=== PATIENT | female | born 1945 | race Caucasian/White ===

== ENCOUNTER 2023-03-15 20:53 | Inpatient (IN) | payer MEDICARE ==
--- NOTE | 2023-03-15 21:22 | ED ---
SOB HPI - General Source: patient, RN notes reviewed <Bebe Gaona - Last Filed: 03/15/23 21:21> <Temi Wallace - Last Filed: 03/16/23 04:52> - General Stated Complaint: KEN Time Seen by Provider: 03/15/23 21:21 - History of Present Illness Initial Comments: Patient is a 77-year-old female presented ER with chief complaint shortness of breath. Patient has a past medical history significant for COPD and multiple heart problems. Patient states she started having shortness of breath earlier today. Patient states her nebulizer was not working which brought her into the ER. Denies chest pain. Patient denies any fevers, chills, night sweats. (Bebe Gaona) Geetha is a 77-year-old female who presents the ER with report that she has had shortness of breath throughout the day today. Patient reports she has a history of COPD she also has a pacemaker in place but denies any history of CHF. She states that today she suddenly started feeling like she could not catch her breath her nebulizer was not helping. She wasn't having any chest pain. She's had no recent illness. (Temi Wallace) - Related Data Allergies Allergy/AdvReac Type Severity Reaction Status Date / Time cephalexin [From Keflex] Allergy Rash/Hives Verified 03/15/23 22:17 Sulfa (Sulfonamide Allergy Rash/Hives Verified 03/15/23 22:17 Antibiotics) Review of Systems ROS Other: All systems not noted in ROS Statement are negative. <Bebe Gaona - Last Filed: 03/15/23 21:21> ROS Other: All systems not noted in ROS Statement are negative. <Temi Wallace - Last Filed: 03/16/23 04:52> ROS Statement: Those systems with pertinent positive or pertinent negative responses have been documented in the HPI. General Exam <Bebe Gaona - Last Filed: 03/15/23 21:21> General appearance: alert Head exam: Present: atraumatic Eye exam: Present: normal appearance ENT exam: Present: normal exam Respiratory exam: Present: normal lung sounds bilaterally Cardiovascular Exam: Present: regular rate GI/Abdominal exam: Present: soft. Absent: distended Extremities exam: Present: pedal edema Neurological exam: Present: alert, oriented X3 Psychiatric exam: Present: normal affect, normal mood Skin exam: Present: warm, dry <Temi Wallace - Last Filed: 03/16/23 04:52> - General Exam Comments Initial Comments: Visual Physical Exam Vital signs reviewed General: Well-appearing, nontoxic, no acute distress. Head: Normocephalic, atraumatic Eyes: PERRLA, EOMI ENT: Airway patent Chest: Nonlabored breathing Skin: No visual rash, normal skin tone Neuro: Alert and oriented 3 Musculoskeletal: No gross abnormalities (Bebe Gaona) Course Vital Signs 03/15/23 03/16/23 03/16/23 22:15 00:18 01:00 Temperature 98.5 F Pulse Rate 81 Respiratory 20 18 21 Rate Blood Pressure 139/82 129/78 146/97 O2 Sat by Pulse 99 98 98 Oximetry 03/16/23 02:00 Temperature Pulse Rate Respiratory 20 Rate Blood Pressure 142/94 O2 Sat by Pulse 98 Oximetry Medical Decision Making <Bebe Gaona - Last Filed: 03/15/23 21:21> - Lab Data Result diagrams: 03/15/23 22:18 03/15/23 22:18 - EKG Data -: EKG Interpreted by Me <Temi Wallace - Last Filed: 03/16/23 04:52> - Medical Decision Making I performed the quick note portion of the exam. Electronically signed by Bebe Gaona PA-C (Bebe Gaona) Was pt. sent in by a medical professional or institution ([facility], [facility], urgent care, hospital, or prison...) When possible be specific @ -No Did you speak to anyone other than the patient for history (EMS, parent, family, police, friend...)? What history was obtained from this source @ -No Did you review nursing and triage notes (agree or disagree)? Why? @ -I reviewed and agree with nursing and triage notes Were old charts reviewed (outside hosp., previous admission, EMS record, old EKG, old radiological studies, urgent care reports/EKG's, prison records)? Report findings @ -No old charts were reviewed Differential Diagnosis (chest pain, altered mental status, abdominal pain women, abdominal pain men, vaginal bleeding, weakness, fever, dyspnea, syncope, headache, dizziness, GI bleed, back pain, seizure, CVA, palpatations, mental health)? @ -Differential Dyspnea: Coronary syndrome, arrhythmia, tamponade, asthma, COPD, pulmonary embolism, pneumonia, pneumothorax, pulmonary effusion, anaphylaxis, diabetic ketoacidosis, flailed chest, pulmonary contusion, diaphragmatic rupture, anemia, neuromuscular, this is not meant to be an all-inclusive list. EKG interpreted by me (3pts min.). @ -As above X-rays interpreted by me (1pt min.). @ -No pneumothorax no focal consolidations CT interpreted by me (1pt min.). @ -None done U/S interpreted by me (1pt. min.). @ -None done What testing was considered but not performed or refused? (CT, X-rays, U/S, labs)? Why? @ -Echocardiogram, can be ordered upon admission What meds were considered but not given or refused? Why? @ -None Did you discuss the management of the patient with other professionals (professionals i.e. , PA, [facility] [facility], lab, RT, psych nurse, neonatal social worker, ice platform supervisor, teacher, morale officer, returned case inspector)? Give summary @ -No Was smoking cessation discussed for >3mins.? @ -No Was critical care preformed (if so, how long)? @ -No Were there social determinants of health that impacted care today? How? (Homelessness, low income, unemployed, alcoholism, drug addiction, transportation, low edu. Level, literacy, decrease access to med. care, [facility], rehab)? @ -No Was there de-escalation of care discussed even if they declined (Discuss DNR or withdrawal of care, Hospice)? DNR status @ -No What co-morbidities impacted this encounter? (DM, HTN, Smoking, COPD, CAD, Cancer, CVA, ARF, Chemo, Hep., AIDS, mental health diagnosis, sleep apnea, morbid obesity)? @ -COPD Was patient admitted / discharged? Hospital course, mention meds given and r oute, prescriptions, significant lab abnormalities, going to OR and other pertinent info. @ -Admitted Patient's workup was initiated in the waiting room due to very prolonged wait times. Patient had labs and x-ray obtained, her troponin was noted to be elevated. Patient did deny any chest pain however given her advanced age and comorbidities shortness of breath could be atypical presentation for cardiac ischemia. Repeat troponin as well as heparin were ordered. Lasix was ordered as well. The troponin is trending down She will be admitted for new CHF, echo was ordered upon admission. Cardiology was consult at. Undiagnosed new problem with uncertain prognosis? @ -Yes Drug Therapy requiring intensive monitoring for toxicity (Heparin, Nitro, Insulin, Cardizem)? @ -Yes, Heparin Were any procedures done? @ -No Diagnosis/symptom? @ -CHF Acute, or Chronic, or Acute on Chronic? @ -Acute Uncomplicated (without systemic symptoms) or Complicated (systemic symptoms)? @ -default Side effects of treatment? @ -No Exacerbation, Progression, or Severe Exacerbation? @ -No Poses a threat to life or bodily function? How? (Chest pain, USA, ME, pneumonia, PE, COPD, DKA, ARF, appy, cholecystitis, CVA, Diverticulitis, Homicidal, Suicidal, threat to staff... and all critical care pts) @ -Yes (Temi Wallace) - Lab Data Lab Results 03/15/23 03/15/23 03/15/23 Range/Units 22:18 22:18 22:18 WBC 8.1 (3.8-10.6) k/uL RBC 3.63 L (3.80-5.40) m/uL Hgb 12.0 (11.4-16.0) gm/dL Hct 35.6 (34.0-46.0) % MCV 98.0 (80.0-100.0) fL MCH 33.2 (25.0-35.0) pg MCHC 33.8 (31.0-37.0) g/dL RDW 12.8 (11.5-15.5) % Plt Count 198 (150-450) k/uL MPV 8.2 PT (10.0-12.5) sec INR (<1.2) APTT (22.0-30.0) sec Sodium 136 L (137-145) mmol/L Potassium 4.3 (3.5-5.1) mmol/L Chloride 100 (98-107) mmol/L Carbon Dioxide 26 (22-30) mmol/L Anion Gap 10 mmol/L BUN 9 (7-17) mg/dL Creatinine 0.74 (0.52-1.04) mg/dL Est GFR (CKD-EPI)AfAm >90 (>60 ml/min/1.73 sqM) Est GFR (CKD-EPI)NonAf 80 (>60 ml/min/1.73 sqM) Glucose 154 H (74-99) mg/dL Calcium 9.5 (8.4-10.2) mg/dL Total Bilirubin 0.7 (0.2-1.3) mg/dL AST 21 (14-36) U/L ALT 17 (4-34) U/L Alkaline Phosphatase 107 (38-126) U/L Troponin I 0.087 H* (0.000-0.034) ng/mL NT-Pro-B Natriuret Pep 4690 pg/mL Total Protein 6.7 (6.3-8.2) g/dL Albumin 3.8 (3.5-5.0) g/dL Influenza Type A (PCR) (Not Detectd) Influenza Type B (PCR) (Not Detectd) RSV (PCR) (Not Detectd) SARS-CoV-2 (PCR) (Not Detectd) 03/15/23 03/16/23 Range/Units 22:18 00:15 WBC (3.8-10.6) k/uL RBC (3.80-5.40) m/uL Hgb (11.4-16.0) gm/dL Hct (34.0-46.0) % MCV (80.0-100.0) fL MCH (25.0-35.0) pg MCHC (31.0-37.0) g/dL RDW (11.5-15.5) % Plt Count (150-450) k/uL MPV PT 10.7 (10.0-12.5) sec INR 1.0 (<1.2) APTT 23.5 (22.0-30.0) sec Sodium (137-145) mmol/L Potassium (3.5-5.1) mmol/L Chloride (98-107) mmol/L Carbon Dioxide (22-30) mmol/L Anion Gap mmol/L BUN (7-17) mg/dL Creatinine (0.52-1.04) mg/dL Est GFR (CKD-EPI)AfAm (>60 ml/min/1.73 sqM) Est GFR (CKD-EPI)NonAf (>60 ml/min/1.73 sqM) Glucose (74-99) mg/dL Calcium (8.4-10.2) mg/dL Total Bilirubin (0.2-1.3) mg/dL AST (14-36) U/L ALT (4-34) U/L Alkaline Phosphatase (38-126) U/L Troponin I (0.000-0.034) ng/mL NT-Pro-B Natriuret Pep pg/mL Total Protein (6.3-8.2) g/dL Albumin (3.5-5.0) g/dL Influenza Type A (PCR) Not Detected (Not Detectd) Influenza Type B (PCR) Not Detected (Not Detectd) RSV (PCR) Not Detected (Not Detectd) SARS-CoV-2 (PCR) Not Detected (Not Detectd) - EKG Data EKG Comments: EKG interpreted by me, EKG obtained at 2228, rate is 81 rhythm is sinus with a bifascicular block left ventricular hypertrophy with noted Q waves concerning for previous ischemia and no acute ST elevations or depressions no evidence of acute infarction. (Temi Wallace) Disposition <Bebe Gaona - Last Filed: 03/15/23 21:21> Is patient prescribed a controlled substance at d/c from ED?: No <Temi Wallace - Last Filed: 03/16/23 04:52> Clinical Impression: Congestive heart failure, COPD (chronic obstructive pulmonary disease), NSTEMI (non-ST elevated myocardial infarction) Disposition: ADMITTED IP TO THIS HOSP Condition: Serious
[2023-03-15 22:56] LABS: ALT 17 U/L (4-34); AST 21 U/L (14-36); African American GFR (CKD) >90 (>60 ml/min/1.73 sqM); Albumin 3.8 g/dL (3.5-5.0); Alkaline Phosphatase 107 U/L (38-126); Anion Gap 10 mmol/L; Blood Urea Nitrogen 9 mg/dL (7-17); Calcium 9.5 mg/dL (8.4-10.2); Carbon Dioxide 26 mmol/L (22-30); Chloride 100 mmol/L (98-107); Glucose 154 mg/dL (74-99); Non-African American GFR(CKD) 80 (>60 ml/min/1.73 sqM); Potassium 4.3 mmol/L (3.5-5.1); Sodium 136 mmol/L (137-145); Total Bilirubin 0.7 mg/dL (0.2-1.3); Total Protein 6.7 g/dL (6.3-8.2)
[2023-03-15 23:04] LABS: HCT 35.6 % (34.0-46.0); MCH 33.2 pg (25.0-35.0); MCHC 33.8 g/dL (31.0-37.0); Mean Platelet Volume 8.2; Platelet Count 198 k/uL (150-450); RBC 3.63 m/uL (3.80-5.40); RDW 12.8 % (11.5-15.5); WBC 8.1 k/uL (3.8-10.6)
[2023-03-15 23:05] LABS: NT-Pro-B-Type Natriuretic Pept 4690 pg/mL
[2023-03-16 00:52] LABS: Partial Thromboplastin Time 23.5 sec (22.0-30.0); Prothrombin Time 10.7 sec (10.0-12.5)
[2023-03-16] MEDS ORDERED: HEPARIN SODIUM 1,000 UN/ML (10ML VL) IV ONE (01:20)
[2023-03-16] MEDS ORDERED: HEPARIN SODIUM 1,000 UN/ML (10ML VL) IV PRN (01:20)
[2023-03-16] MEDS ORDERED: FUROSEMIDE 10 MG/ML 4 ML VIAL IV STA (01:21)
[2023-03-16] MEDS ORDERED: NITROGLYCERIN SL TABS 0.4 MG TAB SUBLINGUAL PRN ×2 (01:25→11:37)
--- NOTE | 2023-03-16 01:34 | XR ---
EXAMINATION TYPE: XR chest 2V DATE OF EXAM: 03/15/2023 9:32 PM CLINICAL INDICATION:Female, 77 years old with history of dyspnea; PHH COMPARISON: None TECHNIQUE: XR chest 2V. Frontal PA and lateral views of the chest. FINDINGS: Lines/Tubes: No indwelling lines are seen. Heart/mediastinum: Heart appears mildly enlarged. Partially calcified aorta. Left chest dual-lead pac emaker with tips over the RA and RV. TAVR present. Pulmonary vascularity: Pulmonary vascular congestion. Increased interstitial markings can be seen wit h edema, pneumonitis, and/or chronic changes. Lungs/Pleura: There is no evidence of pleural effusion, focal consolidation, or pneumothorax. Musculoskeletal: No acute osseous abnormality demonstrated in the limits of the exam. There is fixat ion hardware in the lower cervical spine. Mild degenerative changes of the shoulders and spine. Other findings: None. IMPRESSION: * Mild cardiomegaly with postoperative changes. * Pulmonary vascular congestion. Increased interstitial markings can be seen with edema, pneumonitis , and/or chronic changes.
[2023-03-16] MEDS: HEPARIN SOD,PORK IN 0.45% NACL 25,000 UNIT in 0.45% NACL 1 250ML.BAG IV SCH (02:05)
[2023-03-16] MEDS ORDERED: ALBUTEROL HFA INHALER INHALATION PRN (08:26)
[2023-03-16] MEDS ORDERED: IPRATROPIUM-ALBUTEROL 3 ML NEB INHALATION PRN (08:26)
[2023-03-16] MEDS ORDERED: CYCLOBENZAPRINE 5 MG TAB PO PRN (08:26)
--- NOTE | 2023-03-16 09:18 | P.HPIM ---
History of Present Illness This is a pleasant 77 years old female with multiple medical problems as below. Presents because of breathing difficulty of one-day duration. No specific worsening cough or phlegm, she has occasional chronic cough with clear phlegm. She was developing chest pain, since yesterday about 8, central nonradiating felt like sharp and constant with no precipitation by deep breath or coughing. She denies any change in her urine habit or bowel habits, she has some nausea but no headache dizziness weakness or numbness Denies smoking on she denies drinking alcohol however she smokes marijuana. Her PCP is informed that given pills but she plan to switch to the area. Patient says that she has history of pulmonary embolism twice in 2012 and she is taking liquids at home Patient Vitas looks stable. CBC, INR, BMP and LFTs were unremarkable. And is elevated at 0.08 and 0.07. His BNP elevated 4690. Influenza A and type B, RSV, SARS (coronavirus) are and detected EKG showing normal sinus rhythm and 81, LVH, no ST-T changes and QTC 446. Cardiomegaly with pulmonary vascular congestion suspicious for CHF. Started on heparin drip, aspirin 325 mg and Lasix 40 mg twice daily. Review of Systems Review of systems CONSTITUTIONAL: No fever, no malaise, no fatigue. HEENT: No recent visual problems or hearing problems. Denied any sore throat. CARDIOVASCULAR: No orthopnea, PND, no palpitations, no syncope. PULMONARY: No shortness of breath, no cough, no hemoptysis. GASTROINTESTINAL: No diarrhea, no nausea, no vomiting, no abdominal pain. Normoactive bowel sounds. NEUROLOGICAL: No headaches, no weakness, no numbness. HEMATOLOGICAL: Denies any bleeding or petechiae. GENITOURINARY: Denies any burning micturition, frequency, or urgency. MUSCULOSKELETAL/RHEUMATOLOGICAL: Denies any joint pain, swelling, or any muscle pain. ENDOCRINE: Denies any polyuria or polydipsia. Past Medical History Past Medical History: COPD, Hyperlipidemia, Hypertension, Thyroid Disorder Past Surgical History: Pacemaker Additional Past Surgical History / Comment(s): Heart valve Past Psychological History: No Psychological Hx Reported Smoking Status: Never smoker Past Alcohol Use History: Occasional Past Drug Use History: None Reported Medications and Allergies Home Medications Medication Instructions Recorded Confirmed Type Albuterol Inhaler [Ventolin Hfa 1 puff INHALATION RT-Q4H PRN 12/28/23 12/28/23 History Inhaler] Apixaban [Eliquis] 5 mg PO BID 03/16/23 03/16/23 History Atorvastatin [Lipitor] 20 mg PO HS 03/16/23 03/16/23 History Calcium Carbonate [Calcium] 600 mg PO DAILY 03/16/23 03/16/23 History Cholecalciferol [Vitamin D3 (25 25 mcg PO DAILY 03/16/23 03/16/23 History Mcg = 1000 Iu)] Cyclobenzaprine [Flexeril] 5 mg PO QID PRN 03/16/23 03/16/23 History Famotidine [Pepcid] 20 mg PO HS 03/16/23 03/16/23 History Ginkgo Biloba [place] Extract [Ginkgo] 60 mg PO BID 03/16/23 03/16/23 History Ipratropium/Albuter 20-100Mcg 1 puff INHALATION RT-Q6H PRN 03/16/23 03/16/23 History [Combivent Respimat 20-100Mcg Inhaler] Levothyroxine Sodium [Synthroid] 68.5 mcg PO BENITEZ 03/16/23 03/16/23 History Levothyroxine Sodium [Synthroid] 137 mcg PO MOTUWETHFRSA 03/16/23 03/16/23 History Losartan Potassium [Cozaar] 100 mg PO DAILY 03/16/23 03/16/23 History Metoprolol Succinate (ER) [Toprol 100 mg PO DAILY 03/16/23 03/16/23 History Xl] Montelukast [Singulair] 10 mg PO HS 03/16/23 03/16/23 History Multivit-Min/FA/Lycopen/Lutein 1 tab PO HS 03/16/23 03/16/23 History [Centrum Silver Tablet] Omeprazole 20 mg PO AC-BRKFST 03/16/23 03/16/23 History amLODIPine [Norvasc] 2.5 mg PO HS 03/16/23 03/16/23 History buPROPion SR [Wellbutrin SR] 150 mg PO BID 03/16/23 03/16/23 History Allergies Allergy/AdvReac Type Severity Reaction Status Date / Time cephalexin [From Keflex] Allergy Rash/Hives Verified 03/16/23 07:32 Sulfa (Sulfonamide Allergy Rash/Hives Verified 03/16/23 07:32 Antibiotics) Physical Exam Vitals: Vital Signs Temp Pulse Resp BP Pulse Ox 03/16/23 08:14 78 20 132/70 95 03/16/23 02:00 20 142/94 98 03/16/23 01:00 21 146/97 98 03/16/23 00:30 28 H 03/16/23 00:18 18 129/78 98 03/15/23 22:15 98.5 F 81 20 139/82 99 Intake and Output 03/15/23 03/16/23 03/16/23 22:59 06:59 14:59 Other: Weight 99.79 kg GENERAL: The patient is alert and oriented x3, not in any acute distress. Well developed, well nourished. HEENT: Pupils are round and equally reacting to light. EOMI. No scleral icterus. No conjunctival pallor. Normocephalic, atraumatic. No pharyngeal erythema. No thyromegaly. CARDIOVASCULAR: S1 and S2 present. No murmurs, rubs, or gallops. PULMONARY: Chest is clear to auscultation, no wheezing , no crackles. ABDOMEN: Soft, nontender, nondistended, normoactive bowel sounds. No palpable organomegaly. MUSCULOSKELETAL: No joint swelling or deformity. EXTREMITIES: No cyanosis, clubbing, or pedal edema. NEUROLOGICAL: Gross neurological examination did not reveal any focal deficits. SKIN: No rashes. no petechiae. Results CBC & Chem 7: 03/15/23 22:18 03/15/23 22:18 Labs: Abnormal Lab Results - Last 24 Hours (Table) 03/15/23 03/15/23 03/15/23 Range/Units 22:18 22:18 22:18 RBC 3.63 L (3.80-5.40) m/uL APTT (22.0-30.0) sec Sodium 136 L (137-145) mmol/L Glucose 154 H (74-99) mg/dL Troponin I 0.087 H* (0.000-0.034) ng/mL 03/16/23 03/16/23 Range/Units 01:32 07:03 RBC (3.80-5.40) m/uL APTT 78.4 H (22.0-30.0) sec Sodium (137-145) mmol/L Glucose (74-99) mg/dL Troponin I 0.075 H* (0.000-0.034) ng/mL Assessment and Plan Assessment: Fever of unknown origin, pneumonia suspected Generalized weakness secondary to the above Sepsis with hypotension secondary to above, with fever and tachypnea present on admission Alcohol use disorder and dependence Mildly elevated troponin Obesity with BMI 39 Plan: Continue with heparin drip Continue with aspirin Continue with IV Lasix Hold on Eliquis cardiology consult Labs and medication were reviewed.. Continue same treatment. Continue with symptomatic treatment. Resume home medication. Monitor labs and vitals. DVT and GI prophylaxis. Further recommendations as per clinical course of the patient DVT prophylaxis: Eliquis GI Prophylaxis: Pepcid Prognosis is guarded
--- NOTE | 2023-03-16 10:37 | CONS ---
CONSULTATION CHIEF COMPLAINT: Shortness of breath. HISTORY OF PRESENT ILLNESS: Geetha is a 77-year-old lady with history of aortic stenosis, status post transaortic aortic valve replacement at [facility] 2 years ago, history of bradycardia status post permanent pacemaker, and COPD, who presented to the hospital complaining of shortness of breath that started earlier yesterday. She regularly takes nebulizer that was not working and helping her with her symptoms and she came to the ER. She denies fever or chills. There was mild troponin elevation, due to which a diagnosis of non-ST- segment elevation TX was made and the patient was started on heparin. At the time of my evaluation this morning, she appears comfortable at rest and denies any chest pain. Her shortness of breath has improved. The chest x-ray shows pulmonary congestion. The patient had been treated with IV Lasix with symptom improvement. Her clinical presentation is consistent with a diagnosis of acute onset congestive heart failure and [id number] elevation TX. Given the underlying prosthetic valve, I will obtain blood cultures on her today. She tested negative for coronavirus and RSV and influenza. I advised the patient to undergo a cardiac catheterization tomorrow to rule out significant obstructive CAD. While I do not have her previous records, she did not have bypass surgery and never had coronary stenting. PAST MEDICAL HISTORY: Significant for hypothyroidism, hypertension, pulmonary embolism, COPD, history of aortic valve replacement, and history of permanent pacemaker. MEDICATIONS: Medications at home include: 1. Singulair. 2. Toprol-XL. 3. Cozaar 100 mg daily. 4. Synthroid. 5. Pepcid. 6. Flexeril. 7. Eliquis 5 mg b.i.d. 8. Wellbutrin. 9. Combivent. 10.Norvasc. 11.Lipitor. 12.Albuterol. ALLERGIES: The patient is allergic to Keflex and sulfa. FAMILY HISTORY: Negative for premature coronary artery disease. SOCIAL HISTORY: Negative for current smoking issues or drug abuse. REVIEW OF SYSTEMS: HEENT: Unremarkable. CARDIAC: As described above. RESPIRATORY: As described above. GI: Negative. GENITOURINARY: Negative. ALLERGY/IMMUNOLOGY: Negative. SKIN: Negative. MUSCULOSKELETAL: Negative for arthritis. PSYCHOSOCIAL: Negative. DERM: Negative. CONSTITUTIONAL: As described above. HEMATOLOGICAL: Negative. ONCOLOGICAL: Negative. Rest of the system review is not relevant. PHYSICAL EXAMINATION: VITAL SIGNS: The patient is afebrile, heart rate is 78 beats per minute, blood pressure 130/72, respiratory rate is 18, and O2 saturation is 95% on 2 L. NECK: There is no jugular venous distention. CHEST: Reveals good air entry bilaterally. I do not hear any crackles or rhonchi. HEART: Reveals first and second heart sounds, an ejection systolic murmur in the aortic area. ABDOMEN: Soft. EXTREMITIES: Did not reveal any edema. Peripheral pulses are felt. IMAGING: EKG shows sinus rhythm with right bundle branch block and left axis deviation. LABORATORY DATA: Labs show potassium of 4.3. Creatinine is 0.7. Troponin is elevated at 0.08, 0.07, and 0.09. BNP is elevated at 4690. Hemoglobin is 12. ASSESSMENT: 1. Acute qqt-FQ-[id number] elevation myocardial infarction. 2. Acute onset congestive heart failure of unclear etiology. 3. History of aortic valve replacement. 4. Chronic obstructive pulmonary disease. 5. Hypertension. PLAN: I will continue the patient on IV heparin. Schedule her for a cardiac cath tomorrow. Obtain a 2D echo and send out blood cultures on her. MMODL / IJN: [id number] /
[2023-03-16] MEDS: LEVOTHYROXINE 137 MCG TAB PO SCH (11:05)
[2023-03-16] MEDS: CHOLECALCIFEROL 25 MCG (1000 IU) TABLET PO SCH (11:06)
[2023-03-16] MEDS: buPROPion SR 150 MG TABLET.ER PO SCH ×2 (11:07→22:32)
[2023-03-16] MEDS: METOPROLOL SUCCINATE (ER) 100 MG TAB.ER.24H PO SCH (11:07)
[2023-03-16] MEDS: LOSARTAN 50 MG TAB PO SCH (11:07)
[2023-03-16] MEDS: FUROSEMIDE 10 MG/ML 4 ML VIAL IV SCH ×2 (11:08→20:35)
[2023-03-16] MEDS ORDERED: ALPRAZolam 0.25 MG TAB PO PRN (11:37)
--- NOTE | 2023-03-16 13:41 | CA ---
Transthoracic Echo Report Name: Geetha Najera Age: 77 Gender: F : 1945 Exam Date: 03/16/2023 10:40 Exam Location: [facility] Ht (in): 63 Wt (lb): 220 Ordering Physician: Temi Wallace DO Attending/Referring Phys: [id number] Clinical Rehabilitation Liaison Arthur Sharpe Procedure CPT: Indications: chf Cardiac Hx: Technical Quality: Fair Contrast 1: Total Dose (mL): Contrast 2: Total Dose (mL): MEASUREMENTS (Male / Female) Normal Values 2D ECHO LV Diastolic Diameter PLAX 4.5 cm 4.2 - 5.9 / 3.9 - 5.3 cm LV Systolic Diameter PLAX 3.1 cm IVS Diastolic Thickness 1.1 cm 0.6 - 1.0 / 0.6 - 0.9 cm LVPW Diastolic Thickness 1.2 cm 0.6 - 1.0 / 0.6 - 0.9 cm LV Relative Wall Thickness 0.5 RV Internal Dim ED PLAX 2.0 cm LVOT Diameter 1.8 cm Aortic Root Diameter 1.9 cm LA Systolic Diameter LX 3.3 cm 3.0 - 4.0 / 2.7 - 3.8 cm LV Diastolic Volume MOD BP 56.7 cm??? 67 - 155 / 56 - 104 cm??? LV Systolic Volume MOD BP 43.9 cm??? 22 - 58 / 19 - 49 cm??? LV Ejection Fraction MOD BP 22.6 % >= 55 % LV Cardiac Index MOD BP 452.8 cm???/min???m??? LV Diastolic Volume MOD 4C 49.5 cm??? LV Systolic Volume MOD 4C 39.8 cm??? LV Ejection Fraction MOD 4C 19.5 % LV Cardiac Index MOD 4C 341.0 cm???/min???m??? LV Diastolic Length 4C 6.5 cm LV Systolic Length 4C 5.8 cm LV Diastolic Volume MOD 2C 65.3 cm??? LV Systolic Volume MOD 2C 47.0 cm??? LV Ejection Fraction MOD 2C 28.1 % LV Cardiac Index MOD 2C 647.6 cm???/min???m??? LV Diastolic Length 2C 6.5 cm LV Systolic Length 2C 6.0 cm LA Volume 41.0 cm??? 18 - 58 / 22 - 52 cm??? LA Volume Index 19.0 cm???/m??? 16 - 28 cm???/m??? DOPPLER AV Peak Velocity 154.2 cm/s AV Peak Gradient 9.5 mmHg LVOT Peak Velocity 112.8 cm/s LVOT Peak Gradient 5.1 mmHg LVOT Velocity Time Integral 19.8 cm LVOT Stroke Volume 50.6 cm??? LVOT Stroke Volume Index 25.1 ml/m??? LVOT Cardiac Index 1782.5 cm???/min???m??? AV Area Cont Eq pk 1.9 cm??? MV Peak Velocity 141.3 cm/s MV Peak Gradient 8.0 mmHg MV Mean Velocity 68.1 cm/s MV Mean Gradient 2.3 mmHg MV Velocity Time Integral 31.6 cm MR Peak Velocity 552.4 cm/s MR Peak Gradient 122.0 mmHg Mitral E Point Velocity 100.9 cm/s Mitral A Point Velocity 92.8 cm/s Mitral E to A Ratio 1.1 MV Deceleration Time 137.0 ms TR Peak Velocity 191.2 cm/s TR Peak Gradient 14.6 mmHg Right Ventricular Systolic Press 19.9 mmHg PV Peak Velocity 141.0 cm/s PV Peak Gradient 8.0 mmHg FINDINGS Left Ventricle Normal LV size and wall thickness. Left ventricular ejection fraction is estimated at 40 %. Right Ventricle Normal right ventricular size. Right Atrium Normal right atrial size. Left Atrium Normal left atrial size. Mitral Valve Mild to moderate Mitral annulus calcification. Moderate MR. Aortic Valve HX prior TAVR. No aortic valve stenosis or regurgitation. Tricuspid Valve Tricuspid valve not well visualized. Mild TR. Pulmonic Valve Pulmonic valve not well visualized. Mild to moderate PI. Pericardium Not well visualized. Aorta Normal size aortic root. CONCLUSIONS Left ventricular ejection fraction 40% Moderate mitral regurgitation Bioprosthetic aortic valve in place with no significant aortic stenosis or regurgitation No pericardial effusion Previewed by: Dr. Graham Mckeon DO (Electronically Signed) Final Date: 16 March 2023 13:40
[2023-03-16] MEDS: amLODIPine 2.5 MG TAB PO SCH (20:35)
[2023-03-16] MEDS: ATORVASTATIN 20 MG TAB PO SCH (20:35)
[2023-03-16] MEDS: MONTELUKAST 10 MG TAB PO SCH (20:35)
[2023-03-16] MEDS: FAMOTIDINE 20 MG TAB PO SCH (22:32)
[2023-03-17] MEDS: SODIUM CHLORIDE 0.9% 1,000 ML in EMPTY BAG 1 BAG IV SCH ×3 (01:23→20:42)
[2023-03-17] MEDS: HEPARIN SOD,PORK IN 0.45% NACL 25,000 UNIT in 0.45% NACL 1 250ML.BAG IV SCH (01:24)
[2023-03-17] MEDS ORDERED: ATORVASTATIN 80 MG TAB PO ONE (05:00)
[2023-03-17] MEDS ORDERED: ASPIRIN 325 MG TAB PO ONE (05:00)
[2023-03-17] MEDS ORDERED: HEPARIN SODIUM,PORCINE 10,000 UNIT in SODIUM CHLORIDE 0.9% 1,000 ML IRRIGATION PRN (07:00)
[2023-03-17] MEDS ORDERED: HEPARIN SODIUM,PORCINE (1 ML) 2,500 UNIT in SODIUM CHLORIDE 0.9% 250 ML IRRIGATION PRN (07:00)
[2023-03-17] MEDS: CHOLECALCIFEROL 25 MCG (1000 IU) TABLET PO SCH (07:09)
[2023-03-17] MEDS: LOSARTAN 50 MG TAB PO SCH (07:09)
[2023-03-17] MEDS: METOPROLOL SUCCINATE (ER) 100 MG TAB.ER.24H PO SCH (07:10)
[2023-03-17] MEDS: LEVOTHYROXINE 137 MCG TAB PO SCH (07:10)
[2023-03-17] MEDS: ASPIRIN 325 MG TAB PO SCH (07:12)
[2023-03-17 07:20] LABS: Basophils % (A) 1 %; Eosinophils # (A) 0.2 k/uL (0-0.7); Eosinophils % (A) 3 %; HCT 35.4 % (34.0-46.0); HGB 11.8 gm/dL (11.4-16.0); Lymphocytes # (A) 1.8 k/uL (1.0-4.8); Lymphocytes % (A) 31 %; MCHC 33.5 g/dL (31.0-37.0); MCV 98.7 fL (80.0-100.0); Mean Platelet Volume 8.2; Monocytes # (A) 0.4 k/uL (0-1.0); Monocytes % (A) 7 %; Neutrophils # (A) 3.1 k/uL (1.3-7.7); Neutrophils % (A) 55 %; Platelet Count 213 k/uL (150-450); RBC 3.58 m/uL (3.80-5.40); RDW 12.8 % (11.5-15.5); WBC 5.7 k/uL (3.8-10.6)
[2023-03-17 07:32] LABS: Partial Thromboplastin Time 30.2 sec (22.0-30.0); Prothrombin Time 11.2 sec (10.0-12.5)
[2023-03-17 07:48] LABS: Anion Gap 11 mmol/L; Carbon Dioxide 30 mmol/L (22-30); Chloride 95 mmol/L (98-107); Potassium 3.4 mmol/L (3.5-5.1); Sodium 136 mmol/L (137-145)
[2023-03-17] MEDS: ALPRAZolam 0.5 MG TAB PO PRN (11:15)
[2023-03-17] MEDS ORDERED: fentaNYL (PF) 50 MCG/ML 2 ML AMP ONE ×2 (11:51→14:32)
[2023-03-17] MEDS ORDERED: IV FLUID CONTINUATION 1,000 ML IV ONE ×2 (11:56→14:57)
[2023-03-17] MEDS ORDERED: LIDOCAINE 1% INJ 10MG/ML (30 ML VIAL-PF) SQ ONE (11:56)
[2023-03-17] MEDS ORDERED: MIDAZOLAM 2 MG/2 ML VIAL IVP ONE ×3 (12:00→15:02)
[2023-03-17] MEDS ORDERED: fentaNYL (PF) 50 MCG/1 ML VIAL IVP ONE ×2 (12:01)
[2023-03-17] MEDS ORDERED: IOPAMIDOL-300 100ML BTL INJ ONE (12:42)
--- NOTE | 2023-03-17 13:29 | CC ---
CARDIAC CATHETERIZATION REPORT INDICATIONS: This is a 77-year-old lady with history of aortic stenosis status post aortic valve replacement with an Evolut device, who presented to hospital with chest pain and had mild [id number] elevation TN. I advised her to undergo cardiac catheterization to evaluate her coronary anatomy. The patient has been explained of risks, benefits, and alternatives understood and accepted. PROCEDURE NOTE: After obtaining informed consent, left heart catheterization and coronary angiogram were performed via the right femoral artery using standard Ana catheters. I initially attempted right radial artery catheterization. However, after obtaining right radial artery access and placing a 6-[place] sheath within the right radial artery, I could not advance guidewire into the brachial artery, hence I stopped the procedure through radial and obtained a femoral access and proceeded to perform the cath. The right coronary artery was engaged by Dr. Mckeon, the available bilingual speech language pathologist. The patient received moderate conscious sedation. Total sedation time was 40 minutes. FINDINGS: 1. Hemodynamics: Central aortic pressure is 120/80 mm. 2. Angiographic Data: a.Right Coronary Artery: Right coronary artery is a large dominant vessel that shows a focal 80% to 90% stenosis. The left coronary artery was engaged sub- selectively but LAD showed mild nonobstructive disease and nondominant circumflex coronary artery also shows a nonobstructive disease. CONCLUSIONS: Focal 80% to 90% stenosis involving mid RCA with an area of plaque rupture. PLAN: The patient will undergo angioplasty with stent placement of the same probably later today as Dr. Mckeon is tied up in a pacemaker at the moment, if it cannot be done today, it will be done tomorrow. The patient is on Eliquis, which will be resumed after the angioplasty is done. MMODL / IJN: [id number] /
[2023-03-17] MEDS ORDERED: HEPARIN SODIUM 1,000 UN/ML (10ML VL) ONE (14:31)
[2023-03-17] MEDS ORDERED: LIDOCAINE 1% INJ 10MG/ML (20 ML MDV) ONE (14:31)
[2023-03-17] MEDS ORDERED: VERAPAMIL 2.5 MG/ML 2 ML AMP ONE (14:31)
[2023-03-17] MEDS: HEPARIN SODIUM 1,000 UN/ML (10ML VL) IV ONE ×4 (15:00→16:25)
[2023-03-17] MEDS ORDERED: CLOPIDOGREL 75 MG TAB ONE (15:01)
[2023-03-17] MEDS ORDERED: fentaNYL (PF) 50 MCG/ML 2 ML AMP IVP ONE (15:02)
[2023-03-17] MEDS ORDERED: CLOPIDOGREL 75 MG TAB PO ONE (15:05)
[2023-03-17 15:22] LABS: Chol/HDL Ratio 4.29 Ratio; LDL Cholesterol,Calculated 125.1 mg/dL (0.0-131.0)
[2023-03-17] MEDS ORDERED: AMIODARONE 360 MG in DEXTROSE 5% IN WATER 200 ML IV ONE ×2 (15:30)
[2023-03-17] MEDS ORDERED: IOPAMIDOL-370 100ML BTL INJ ONE (17:19)
[2023-03-17] MEDS: FUROSEMIDE 10 MG/ML 4 ML VIAL IV SCH ×2 (18:03→20:43)
[2023-03-17] MEDS: buPROPion SR 150 MG TABLET.ER PO SCH (18:06)
[2023-03-17] MEDS ORDERED: ATROPINE SULFATE 0.1 MG/ML 10ML SYRINGE ONE (19:42)
[2023-03-17] MEDS ORDERED: POTASSIUM CHLORIDE ER 20 MEQ TAB.ER PO STA (20:04)
--- NOTE | 2023-03-17 20:08 | P.PN ---
Subjective This is a pleasant 77 years old female with multiple medical problems as below. Presents because of breathing difficulty of one-day duration. No specific worsening cough or phlegm, she has occasional chronic cough with clear phlegm. She was developing chest pain, since yesterday about 10/27, central nonradiating felt like sharp and constant with no precipitation by deep breath or coughing. She denies any change in her urine habit or bowel habits, she has some nausea but no headache dizziness weakness or numbness Denies smoking on she denies drinking alcohol however she smokes marijuana. Her PCP is informed that given pills but she plan to switch to the area. Patient says that she has history of pulmonary embolism twice in 2011 and she is taking liquids at home Patient Vitas looks stable. CBC, INR, BMP and LFTs were unremarkable. And is elevated at 0.08 and 0.07. His BNP elevated 4690. Influenza A and type B, RSV, SARS (coronavirus) are and detected EKG showing normal sinus rhythm and 81, LVH, no ST-T changes and QTC 446. Cardiomegaly with pulmonary vascular congestion suspicious for CHF. Started on heparin drip, aspirin 325 mg and Lasix 40 mg twice daily. 03/17/2023 Patient underwent cardiac cath today with photoengraver team showing evidence of right coronary artery stenosis about 80-90% lesion with evidence of Gareth rupt ure. Patient would proceed with stent placement at the second sensation of cardiac cath with Dr. Mckeon, hopefully today. I then that patient denies chest pain or dyspnea, no other new complaint Vitals stable Labs a stable Low potassium replaced TSH is normal Patient remains on aspirin 325 mg Patient remains on IV Lasix 40 mg twice a day and her breathing is improving Objective - Vital Signs Vital signs: Vital Signs Temp 98.0 F 03/17/23 08:00 Pulse 66 03/17/23 18:30 Resp 14 03/17/23 18:15 BP 107/55 03/17/23 18:30 Pulse Ox 96 03/17/23 18:30 FiO2 Intake & Output 03/17/23 03/17/23 03/18/23 06:59 18:59 06:59 Intake Total 945.800 5567.667 Balance 440.415 5461.667 Weight 95.527 kg Intake: IV 490 Intake, IV Titration 233.167 66.667 Amount Heparin Sod,Pork in 0.45% 233.167 66.667 NaCl 25,000 unit In 0.45 % NaCl 1 250ml.bag @ 10. 021 UNITS/KG/HR 10 mls/hr IV .Q24H [facility] Rx#: [id number] Oral 540 Other: Voiding Method Toilet Toilet # Voids 4 - Exam GENERAL: The patient is alert and oriented x3, not in any acute distress. Well developed, well nourished. HEENT: Pupils are round and equally reacting to light. EOMI. No scleral icterus. No conjunctival pallor. Normocephalic, atraumatic. No pharyngeal erythema. No thyromegaly. CARDIOVASCULAR: S1 and S2 present. No murmurs, rubs, or gallops. PULMONARY: Chest is clear to auscultation, no wheezing , no crackles. ABDOMEN: Soft, nontender, nondistended, normoactive bowel sounds. No palpable organomegaly. MUSCULOSKELETAL: No joint swelling or deformity. EXTREMITIES: No cyanosis, clubbing, or pedal edema. NEUROLOGICAL: Gross neurological examination did not reveal any focal deficits. SKIN: No rashes. no petechiae. - Labs CBC & Chem 7: 03/17/23 06:51 03/17/23 06:51 Labs: Abnormal Lab Results - Last 24 Hours (Table) 03/17/23 03/17/23 03/17/23 Range/Units 06:51 06:51 06:51 RBC 3.58 L (3.80-5.40) m/uL APTT 30.2 H (22.0-30.0) sec Sodium 136 L (137-145) mmol/L Potassium 3.4 L (3.5-5.1) mmol/L Chloride 95 L (98-107) mmol/L Cholesterol 201.00 H (0.00-200.00) mg/dL Microbiology - Last 24 Hours (Table) 03/16/23 09:47 Blood Culture - Preliminary Blood Assessment and Plan Assessment: Fever of unknown origin, pneumonia suspected Generalized weakness secondary to the above Sepsis with hypotension secondary to above, with fever and tachypnea present on admission Alcohol use disorder and dependence Mildly elevated troponin Obesity with BMI 39 Plan: Continue with heparin drip Continue with aspirin Continue with IV Lasix Hold on Eliquis cardiology consult with the planned for stent placement Labs and medication were reviewed.. Continue same treatment. Continue with symptomatic treatment. Resume home medication. Monitor labs and vitals. DVT and GI prophylaxis. Further recommendations as per clinical course of the patient DVT prophylaxis: Eliquis GI Prophylaxis: Pepcid Prognosis is guarded
[2023-03-17] MEDS: amLODIPine 2.5 MG TAB PO SCH (20:43)
[2023-03-17] MEDS: MONTELUKAST 10 MG TAB PO SCH (20:58)
[2023-03-17] MEDS: ATORVASTATIN 20 MG TAB PO SCH (20:58)
[2023-03-17] MEDS: FAMOTIDINE 20 MG TAB PO SCH (20:58)
--- NOTE | 2023-03-17 23:28 | P.PRCINT ---
Percutaneous Coronary Int. - Percutaneous Coronary Intervention Percutaneous Coronary Intervention: PROCEDURES PERFORMED: Right coronary angiography, IVUS RCA, PCI mid RCA with a 2.75 x 8mm Xience FOREST INDICATION: NSTEMI CONSENT:I have discussed the risks, benefits and alternative therapies for the above-mentioned procedure and for both sedation/analgesia as well as necessary blood product administration, if indicated, as they pertain to this patient. The patient has indicated understanding and acceptance of the risks and procedures discussed. PROCEDURE: After the risks, benefits and alternatives of the above mentioned procedure explained in detail with the patient, informed consent was obtained. Patient was taken to the catheterization lab and prepped and draped in usual fashion. A right femoral sheath had previously been placed. The decision was made to perform PCI of the RCA. Heparin was given for ACT greater than 250. Initially a 6-Sinhal[place] FR5 Catheter was attempted to cannulate the RCA through the Evolut TAVR struts however was unsuccessful. Therefore a 6-Sinhal[place] AR to guide was used position catheter towards the RCA. Unable to fully position catheter through the struts facing the RCA. Therefore with previous imaging showing fairly acute takeoff of RCA and what appeared to be small coronary sinus remaining, decision was made to "free wire" and RCA. Therefore it using a Line catheter, a 90 super across microcatheter and a 0.014 BMW wire, the BMW wire was able to be advanced into the distal RCA. Unfortunately unable to advance the guideline past the struts of the TAVR valve despite performing balloon angioplasty with a 2.5 mm balloon and stenting to the advance the Guideliner as a rail. The 2.5 mm balloon however was able to be advanced. We attempted to advance a 3.0 x 12 mm balloon, 3.0 x 8 mm balloon which were unsuccessful. Attempted to change out guideliner for a guidezilla however upon advance the stent, the stent became dislodged from the balloon and necessitated taking entire Guidezlilla out. Numerous attempts were made at Todd wire with a 0.014 male man wire and advanced in a 2.75-8 mm stent. This was unsuccessful with limited support from Guideliner. Attempted to re-wire to the struts in case there was some issue with advancing the guideline through the struts. With a number of attempts, we were able to advance the guideline her to the first been in the RCA. The RCA was noted to have diffuse disease including the proximal/ostial RCA, mid RCA and more focal 95% mid to distal RCA. Attempted to advance a 3.0 x 12 mm stent however this was unsuccessful in passing past the 1st bend. Therefore advanced a 2.75 x 8mm Xience FOREST which was able to be deployed in the mid to distal RCA. There was some radiolucency on repeat imaging of the more proximal mid RCA. Therefore intravascular ultrasound was performed up to the stage which showed ca lcific plaque however no actual dissection. This appeared to be more 50% and therefore recommended medical therapy. The wire was pulled and final angiograms were performed.. Intervention there was The patient tolerated the procedure well. Patient was transported back to the post catheterization holding area in stable condition. Conscious Sedation: Patient was monitored under the direct supervision of myself for conscious sedation using Versed and fentanyl for a total duration of 134 minutes HEMODYNAMICS: Ao: 144/72 SELECTIVE CORONARY ARTERIOGRAPHY: LEFT MAIN: Not imaged LEFT ANTERIOR DESCENDING CORONARY ARTERY: Not imaged LEFT CIRCUMFLEX CORONARY ARTERY: Not imaged RIGHT CORONARY ARTERY: The right coronary artery is a large caliber vessel which gives off a PDA and PLV branch and is the dominant vessel. There is a mid RCA 95% stenosis. The proximal RCA has a 40-50% stenosis, the mid RCA has a more focal calcified 50% stenosis. FINAL IMPRESSION: 1. S/p PCI mid RCA with a 2.75 x 8mm Xience FOREST PLAN: 1. Aggressive risk factor modification per most recent ACC/AHA guidelines. 2. Continue Eliquis and Plavix for 12 months
[2023-03-17] MEDS ORDERED: RX INFO: IV CONTRAST WAS GIVEN 1 EACH MISC MISCELLANE PRN (23:29)
[2023-03-18] MEDS: buPROPion SR 150 MG TABLET.ER PO SCH ×3 (00:15→21:14)
[2023-03-18] MEDS: NITROGLYCERIN OINT 1 INCH/GM PACKET TOPICAL SCH ×4 (00:42→21:30)
[2023-03-18] MEDS: SODIUM CHLORIDE 0.9% 1,000 ML in EMPTY BAG 1 BAG IV SCH ×2 (05:17→16:27)
[2023-03-18 09:19] LABS: African American GFR (CKD) 64 (>60 ml/min/1.73 sqM); Anion Gap 14 mmol/L; Blood Urea Nitrogen 11 mg/dL (7-17); Calcium 8.4 mg/dL (8.4-10.2); Carbon Dioxide 25 mmol/L (22-30); Chloride 99 mmol/L (98-107); Glucose 109 mg/dL (74-99); Non-African American GFR(CKD) 56 (>60 ml/min/1.73 sqM); Potassium 3.8 mmol/L (3.5-5.1); Sodium 138 mmol/L (137-145)
[2023-03-18] MEDS: FUROSEMIDE 10 MG/ML 4 ML VIAL IV SCH (09:45)
[2023-03-18] MEDS: METOPROLOL SUCCINATE (ER) 100 MG TAB.ER.24H PO SCH (09:45)
[2023-03-18] MEDS: CHOLECALCIFEROL 25 MCG (1000 IU) TABLET PO SCH (09:45)
[2023-03-18] MEDS: LEVOTHYROXINE 137 MCG TAB PO SCH (09:45)
[2023-03-18] MEDS: ASPIRIN 325 MG TAB PO SCH (09:45)
[2023-03-18] MEDS: CLOPIDOGREL 75 MG TAB PO SCH (09:45)
[2023-03-18] MEDS: LOSARTAN 50 MG TAB PO SCH (09:45)
[2023-03-18] MEDS ORDERED: FUROSEMIDE 40 MG TAB PO SCH (16:00)
[2023-03-18] MEDS: ACETAMINOPHEN TAB 325 MG TAB PO PRN (17:04)
--- NOTE | 2023-03-18 20:35 | P.PN ---
Subjective This is a pleasant 77 years old female with multiple medical problems as below. Presents because of breathing difficulty of one-day duration. No specific worsening cough or phlegm, she has occasional chronic cough with clear phlegm. She was developing chest pain, since yesterday about 10/27, central nonradiating felt like sharp and constant with no precipitation by deep breath or coughing. She denies any change in her urine habit or bowel habits, she has some nausea but no headache dizziness weakness or numbness Denies smoking on she denies drinking alcohol however she smokes marijuana. Her PCP is informed that given pills but she plan to switch to the area. Patient says that she has history of pulmonary embolism twice in 2011 and she is taking liquids at home Patient Vitas looks stable. CBC, INR, BMP and LFTs were unremarkable. And is elevated at 0.08 and 0.07. His BNP elevated 4690. Influenza A and type B, RSV, SARS (coronavirus) are and detected EKG showing normal sinus rhythm and 81, LVH, no ST-T changes and QTC 446. Cardiomegaly with pulmonary vascular congestion suspicious for CHF. Started on heparin drip, aspirin 325 mg and Lasix 40 mg twice daily. 03/17/2023 Patient underwent cardiac cath today with power plant operators supervisor team showing evidence of right coronary artery stenosis about 80-90% lesion with evidence of Gareth rupt ure. Patient would proceed with stent placement at the second sensation of cardiac cath with Dr. Mckeon, hopefully today. I then that patient denies chest pain or dyspnea, no other new complaint Vitals stable Labs a stable Low potassium replaced TSH is normal Patient remains on aspirin 325 mg Patient remains on IV Lasix 40 mg twice a day and her breathing is improving 03/18/2023 Patient status post PCI to RCA. No chest pain no dyspnea. She looks very tired. IV Lasix wished oral dose. Also she was placed on liquids and Plavix 12 months. Continue monitoring for the Objective - Vital Signs Vital signs: Vital Signs Temp 98.4 F 03/18/23 12:00 Pulse 77 03/18/23 12:00 Resp 18 03/18/23 12:00 BP 91/56 03/18/23 12:00 Pulse Ox 98 03/18/23 12:00 FiO2 Intake & Output 03/17/23 03/18/23 03/18/23 18:59 06:59 18:59 Intake Total 1096.667 240 Output Total 600 300 Balance 1096.667 -600 -60 Weight 103 kg Intake: IV 490 Intake, IV Titration 66.667 Amount Heparin Sod,Pork in 0.45% 66.667 NaCl 25,000 unit In 0.45 % NaCl 1 250ml.bag @ 10. 021 UNITS/KG/HR 10 mls/hr IV .Q24H [facility] Rx#: [id number] Oral 540 240 Output: Urine 600 300 Other: Voiding Method Toilet Toilet # Voids 1 # Bowel Movements 1 - Exam GENERAL: The patient is alert and oriented x3, not in any acute distress. Well developed, well nourished. HEENT: Pupils are round and equally reacting to light. EOMI. No scleral icterus. No conjunctival pallor. Normocephalic, atraumatic. No pharyngeal erythema. No thyromegaly. CARDIOVASCULAR: S1 and S2 present. No murmurs, rubs, or gallops. PULMONARY: Chest is clear to auscultation, no wheezing , no crackles. ABDOMEN: Soft, nontender, nondistended, normoactive bowel sounds. No palpable organomegaly. MUSCULOSKELETAL: No joint swelling or deformity. EXTREMITIES: No cyanosis, clubbing, or pedal edema. NEUROLOGICAL: Gross neurological examination did not reveal any focal deficits. SKIN: No rashes. no petechiae. - Labs CBC & Chem 7: 03/17/23 06:51 03/18/23 07:43 Labs: Abnormal Lab Results - Last 24 Hours (Table) 03/18/23 Range/Units 07:43 Glucose 109 H (74-99) mg/dL Microbiology - Last 24 Hours (Table) 03/16/23 09:47 Blood Culture - Preliminary Blood Assessment and Plan Assessment: Non-STEMI status post cardiac cath showing RCA stenosis 80-90% and status post PCI on 03/18 Acute on chronic systolic CHF with ejection fraction 40%, Moderate mitral regurgitation Hypertension Obesity with BMI of 37.3. History of 2 pulmonary embolism in 2011 she is on Eliquis at home Plan: Continue with Eliquis and Plavix Continue with oral Lasix cardiology consult Labs and medication were reviewed.. Continue same treatment. Continue with symptomatic treatment. Resume home medication. Monitor labs and vitals. DVT and GI prophylaxis. Further recommendations as per clinical course of the patient DVT prophylaxis: Eliquis GI Prophylaxis: Pepcid Prognosis is guarded
[2023-03-18] MEDS: amLODIPine 2.5 MG TAB PO SCH (21:14)
[2023-03-18] MEDS: ATORVASTATIN 20 MG TAB PO SCH (21:14)
[2023-03-18] MEDS: MONTELUKAST 10 MG TAB PO SCH (21:14)
[2023-03-18] MEDS: FAMOTIDINE 20 MG TAB PO SCH (21:14)
--- NOTE | 2023-03-18 21:27 | P.PN ---
Subjective Progress Note Date: 03/18/23 SUBJECTIVE: Patient underwent PCI to RCA yesterday. Post intervention her right radial exercise appears to be intact with no swelling or hematoma. Good distal pulses. Blood pressure 91/56, pulse 77, sinus rhythm, Patient reports that she is much better since the time of admission. Denies any chest pain shortness of breath Lab shows creatinine of 1 which is stable, hemoglobin 9.8 PHYSICAL EXAMINATION Vital signs reviewed. Head: Normocephalic. Eyes: Sclerae nonicteric. Neck: Brisk carotid upstroke, no jugular venous distention. Lungs: Clear to auscultation. Heart: Regular rate and rhythm, S1-S2, no S3, no murmur or rub. Abdomen: Soft nontender, positive bowel sounds no organomegaly. Extremities: No edema, intact distal pulses. ASSESSMENT NSTEMI status post PCI to RCA. Moderate nonobstructive mid LAD disease ifr negative COPD Hypertension History of TAVR with bioprosthetic aortic valve Mild HFrEF exacerbation Echo shows EF 40%, moderate MR, normally functioning bioprosthetic aortic valve PLAN Aspirin, Plavix, atorvastatin Reduce losartan to 25 mg because of low blood pressure Continue metoprolol succinate 100 mg daily Discontinue Lasix twice a day. Instead discharged on torsemide 20 mg to go home with Outpatient follow-up with Dr. Robert. Patient is cleared to be discharged from c ardiac standpoint tomorrow if heart pressures is stab Objective - Vital Signs Vital signs: Vital Signs Temp 97.8 F 03/18/23 16:00 Pulse 83 03/18/23 16:00 Resp 18 03/18/23 16:00 BP 107/70 03/18/23 16:00 Pulse Ox 100 03/18/23 16:00 FiO2 Intake & Output 03/18/23 03/18/23 03/19/23 06:59 18:59 06:59 Intake Total 360 Output Total 600 1300 Balance -600 -940 Weight 103 kg Intake: Oral 360 Output: Urine 600 1300 Other: Voiding Method Toilet # Voids 1 # Bowel Movements 1 - Labs CBC & Chem 7: 03/17/23 06:51 03/18/23 07:43 Labs: Abnormal Lab Results - Last 24 Hours (Table) 03/18/23 Range/Units 07:43 Glucose 109 H (74-99) mg/dL Microbiology - Last 24 Hours (Table) 03/16/23 09:47 Blood Culture - Preliminary Blood
[2023-03-19] MEDS: ACETAMINOPHEN TAB 325 MG TAB PO PRN ×3 (00:02→21:11)
[2023-03-19] MEDS: SODIUM CHLORIDE 0.9% 1,000 ML in EMPTY BAG 1 BAG IV SCH ×2 (02:21→17:05)
[2023-03-19 07:37] LABS: Basophils % (A) 0 %; Eosinophils # (A) 0.2 k/uL (0-0.7); Eosinophils % (A) 4 %; HCT 29.6 % (34.0-46.0); Lymphocytes # (A) 1.5 k/uL (1.0-4.8); Lymphocytes % (A) 26 %; MCH 33.1 pg (25.0-35.0); MCHC 33.8 g/dL (31.0-37.0); MCV 97.8 fL (80.0-100.0); Mean Platelet Volume 8.8; Monocytes # (A) 0.6 k/uL (0-1.0); Monocytes % (A) 10 %; Neutrophils # (A) 3.3 k/uL (1.3-7.7); Neutrophils % (A) 57 %; Platelet Count 168 k/uL (150-450); RBC 3.03 m/uL (3.80-5.40); RDW 13.4 % (11.5-15.5); WBC 5.7 k/uL (3.8-10.6)
[2023-03-19 07:41] LABS: African American GFR (CKD) 50 (>60 ml/min/1.73 sqM); Anion Gap 9 mmol/L; Blood Urea Nitrogen 14 mg/dL (7-17); Calcium 7.9 mg/dL (8.4-10.2); Carbon Dioxide 28 mmol/L (22-30); Chloride 101 mmol/L (98-107); Glucose 99 mg/dL (74-99); Non-African American GFR(CKD) 43 (>60 ml/min/1.73 sqM); Potassium 3.5 mmol/L (3.5-5.1); Sodium 138 mmol/L (137-145)
[2023-03-19] MEDS ORDERED: LEVOTHYROXINE 137 MCG TAB PO SCH (08:26)
[2023-03-19] MEDS ORDERED: LOSARTAN 50 MG TAB PO SCH (09:00)
[2023-03-19] MEDS: CHOLECALCIFEROL 25 MCG (1000 IU) TABLET PO SCH (09:24)
[2023-03-19] MEDS: ASPIRIN 81 MG PO SCH (09:24)
[2023-03-19] MEDS: NITROGLYCERIN OINT 1 INCH/GM PACKET TOPICAL SCH ×2 (09:24→17:05)
[2023-03-19] MEDS: CLOPIDOGREL 75 MG TAB PO SCH (09:24)
[2023-03-19] MEDS: LOSARTAN 25 MG TAB PO SCH (09:24)
[2023-03-19] MEDS: METOPROLOL SUCCINATE (ER) 100 MG TAB.ER.24H PO SCH (09:24)
[2023-03-19] MEDS: buPROPion SR 150 MG TABLET.ER PO SCH ×2 (09:25→21:10)
[2023-03-19] MEDS: TORSEMIDE 20 MG TAB PO SCH (09:25)
[2023-03-19] MEDS ORDERED: POTASSIUM CHLORIDE ER 20 MEQ TAB.ER PO STA (10:33)
[2023-03-19] MEDS: PANTOPRAZOLE 40 MG TABLET PO SCH ×2 (13:11→17:56)
[2023-03-19 15:28] VITALS: BMI 40.2
--- NOTE | 2023-03-19 20:30 | P.PN ---
Subjective This is a pleasant 77 years old female with multiple medical problems as below. Presents because of breathing difficulty of one-day duration. No specific worsening cough or phlegm, she has occasional chronic cough with clear phlegm. She was developing chest pain, since yesterday about 10/27, central nonradiating felt like sharp and constant with no precipitation by deep breath or coughing. She denies any change in her urine habit or bowel habits, she has some nausea but no headache dizziness weakness or numbness Denies smoking on she denies drinking alcohol however she smokes marijuana. Her PCP is informed that given pills but she plan to switch to the area. Patient says that she has history of pulmonary embolism twice in 2011 and she is taking liquids at home Patient Vitas looks stable. CBC, INR, BMP and LFTs were unremarkable. And is elevated at 0.08 and 0.07. His BNP elevated 4690. Influenza A and type B, RSV, SARS (coronavirus) are and detected EKG showing normal sinus rhythm and 81, LVH, no ST-T changes and QTC 446. Cardiomegaly with pulmonary vascular congestion suspicious for CHF. Started on heparin drip, aspirin 325 mg and Lasix 40 mg twice daily. 03/17/2023 Patient underwent cardiac cath today with curer foam rubber team showing evidence of right coronary artery stenosis about 80-90% lesion with evidence of Gareth rupt ure. Patient would proceed with stent placement at the second sensation of cardiac cath with Dr. Mckeon, hopefully today. I then that patient denies chest pain or dyspnea, no other new complaint Vitals stable Labs a stable Low potassium replaced TSH is normal Patient remains on aspirin 325 mg Patient remains on IV Lasix 40 mg twice a day and her breathing is improving 03/18/2023 Patient status post PCI to RCA. No chest pain no dyspnea. She looks very tired. IV Lasix wished oral dose. Also she was placed on liquids and Plavix 12 months. Continue monitoring for the 03/19/2023 Patient breathing is much improved and IV Lasix wished to oral torsemide 20 mg daily for CHF Today patient with no chest pain, no other new complaints, patient was asking if she can go home area She status post PCI to the RCA and she was on Plavix, aspirin 81 mg added, Eliquis which she takes for history of PE is on hold, Her hemoglobin dropped 12 down to 10, therefore we will do anemia workup Protonix twice daily Discussed with patient and cardiology team and they agreement. We'll keep monitoring closely Objective - Vital Signs Vital signs: Vital Signs Temp 98.1 F 03/19/23 16:00 Pulse 76 03/19/23 16:00 Resp 18 03/19/23 16:00 BP 113/59 03/19/23 16:00 Pulse Ox 97 03/19/23 16:00 FiO2 Intake & Output 03/18/23 03/19/23 03/19/23 18:59 06:59 18:59 Intake Total 360 118 120 Output Total 1300 1200 Balance -940 -1082 120 Weight 103 kg Intake: Oral 360 118 120 Output: Urine 1300 1200 Other: Voiding Method Toilet # Voids 2 - Exam GENERAL: The patient is alert and oriented x3, not in any acute distress. Well developed, well nourished. HEENT: Pupils are round and equally reacting to light. EOMI. No scleral icterus. No conjunctival pallor. Normocephalic, atraumatic. No pharyngeal erythema. No thyromegaly. CARDIOVASCULAR: S1 and S2 present. No murmurs, rubs, or gallops. PULMONARY: Chest is clear to auscultation, no wheezing , no crackles. ABDOMEN: Soft, nontender, nondistended, normoactive bowel sounds. No palpable organomegaly. MUSCULOSKELETAL: No joint swelling or deformity. EXTREMITIES: No cyanosis, clubbing, or pedal edema. NEUROLOGICAL: Gross neurological examination did not reveal any focal deficits. SKIN: No rashes. no petechiae. - Labs CBC & Chem 7: 03/19/23 06:09 03/19/23 06:09 Labs: Abnormal Lab Results - Last 24 Hours (Table) 03/19/23 03/19/23 Range/Units 06:09 06:09 RBC 3.03 L (3.80-5.40) m/uL Hgb 10.0 L D (11.4-16.0) gm/dL Hct 29.6 L (34.0-46.0) % Creatinine 1.23 H (0.52-1.04) mg/dL Calcium 7.9 L (8.4-10.2) mg/dL Microbiology - Last 24 Hours (Table) 03/16/23 09:47 Blood Culture - Preliminary Blood Assessment and Plan Assessment: Non-STEMI status post cardiac cath showing RCA stenosis 80-90% and status post PCI on 03/18 Acute on chronic systolic CHF with ejection fraction 40%, Moderate mitral regurgitation Hypertension Obesity with BMI of 37.3. History of 2 pulmonary embolism in 2011 she is on Eliquis at home Plan: Continue with Eliquis (on hold) and Plavix and aspirin Continue with oral torsemide cardiology consult Labs and medication were reviewed.. Continue same treatment. Continue with symptomatic treatment. Resume home medication. Monitor labs and vitals. DVT and GI prophylaxis. Further recommendations as per clinical course of the patient DVT prophylaxis: Eliquis, on hold GI Prophylaxis: Ppi Prognosis is guarded
[2023-03-19] MEDS: amLODIPine 2.5 MG TAB PO SCH (21:10)
[2023-03-19] MEDS: MONTELUKAST 10 MG TAB PO SCH (21:10)
[2023-03-19] MEDS: ATORVASTATIN 20 MG TAB PO SCH (21:10)
[2023-03-19 23:16] LABS: % Iron Saturation 11.86 (12.00-45.00)
[2023-03-20] MEDS: ALPRAZolam 0.5 MG TAB PO PRN (00:12)
[2023-03-20] MEDS: SODIUM CHLORIDE 0.9% 1,000 ML in EMPTY BAG 1 BAG IV SCH ×3 (02:05→14:21)
[2023-03-20] MEDS: NITROGLYCERIN OINT 1 INCH/GM PACKET TOPICAL SCH ×3 (02:05→12:22)
[2023-03-20] MEDS: PANTOPRAZOLE 40 MG TABLET PO SCH ×2 (04:17→16:47)
[2023-03-20] MEDS: CHOLECALCIFEROL 25 MCG (1000 IU) TABLET PO SCH (09:02)
[2023-03-20] MEDS: ASPIRIN 81 MG PO SCH (09:02)
[2023-03-20] MEDS: LEVOTHYROXINE 137 MCG TAB PO SCH (09:02)
[2023-03-20] MEDS: CLOPIDOGREL 75 MG TAB PO SCH (09:02)
[2023-03-20] MEDS: LOSARTAN 25 MG TAB PO SCH (09:02)
[2023-03-20] MEDS: buPROPion SR 150 MG TABLET.ER PO SCH ×2 (09:02→20:42)
[2023-03-20] MEDS: TORSEMIDE 20 MG TAB PO SCH (09:02)
[2023-03-20] MEDS: METOPROLOL SUCCINATE (ER) 100 MG TAB.ER.24H PO SCH (09:03)
[2023-03-20 09:10] LABS: Basophils % (A) 1 %; Eosinophils # (A) 0.2 k/uL (0-0.7); Eosinophils % (A) 3 %; HCT 31.9 % (34.0-46.0); HGB 10.4 gm/dL (11.4-16.0); Lymphocytes # (A) 1.6 k/uL (1.0-4.8); Lymphocytes % (A) 23 %; MCH 32.8 pg (25.0-35.0); MCHC 32.6 g/dL (31.0-37.0); MCV 100.7 fL (80.0-100.0); Mean Platelet Volume 8.5; Monocytes # (A) 0.4 k/uL (0-1.0); Monocytes % (A) 6 %; Neutrophils # (A) 4.4 k/uL (1.3-7.7); Neutrophils % (A) 65 %; Platelet Count 181 k/uL (150-450); RBC 3.16 m/uL (3.80-5.40); WBC 6.8 k/uL (3.8-10.6)
[2023-03-20 09:24] LABS: African American GFR (CKD) 60 (>60 ml/min/1.73 sqM); Anion Gap 11 mmol/L; Blood Urea Nitrogen 12 mg/dL (7-17); Calcium 8.3 mg/dL (8.4-10.2); Carbon Dioxide 29 mmol/L (22-30); Chloride 98 mmol/L (98-107); Glucose 124 mg/dL (74-99); Non-African American GFR(CKD) 52 (>60 ml/min/1.73 sqM); Potassium 3.7 mmol/L (3.5-5.1); Sodium 138 mmol/L (137-145)
[2023-03-20] MEDS: ACETAMINOPHEN TAB 325 MG TAB PO PRN ×2 (09:53→20:42)
[2023-03-20] MEDS: FERROUS SULFATE 325 MG TAB PO SCH ×2 (12:30→16:47)
--- NOTE | 2023-03-20 12:42 | P.GSCN ---
History of Present Illness Consult date: 03/20/23 Reason for Consult: Anemia History of present illness: 77-year-old female here for cardiac issues. Patient underwent cardiac catheterization with stent placement. She is on Plavix and aspirin. She is on anticoagulation chronically for recurrent PE. Hemoglobin went from 12 down to 10. No rectal bleeding or melena. Stools have not been checked for occult blood yet. Patient states she has issues with chronic anemia. States her last endoscopies were many years ago. She is not interested and endoscopic workup currently. No pain. No change in bowel habits. Review of Systems The patient denies any acute changes in vision or hearing, no dysphagia or odynophagia, no chest pain or shortness of breath, no dysuria or hematuria, no headache, no runny nose, no rectal bleeding or melena, no unexplained weight loss Past Medical History Past Medical History: COPD, Hyperlipidemia, Hypertension, Thyroid Disorder History of Any Multi-Drug Resistant Organisms: None Reported Past Surgical History: Cholecystectomy, Hysterectomy, Pacemaker Additional Past Surgical History / Comment(s): Heart valve replacement, thyroid surgery, wrist surgery, neck surgery, knee replacement x3 Past Anesthesia/Blood Transfusion Reactions: No Reported Reaction Type of Cardiac Device: Permanent Pacemaker Device Placement Date:: 08/18/20 Past Psychological History: No Psychological Hx Reported Smoking Status: Never smoker Past Alcohol Use History: Occasional Past Drug Use History: None Reported Medications and Allergies Home Medications Medication Instructions Recorded Confirmed Type Albuterol Inhaler [Ventolin Hfa 1 puff INHALATION RT-Q4H PRN 03/16/23 03/16/23 History Inhaler] Apixaban [Eliquis] 5 mg PO BID 03/16/23 03/16/23 History Atorvastatin [Lipitor] 20 mg PO HS 03/16/23 03/16/23 History Calcium Carbonate [Calcium] 600 mg PO DAILY 03/16/23 03/16/23 History Cholecalciferol [Vitamin D3 (25 25 mcg PO DAILY 03/16/23 03/16/23 History Mcg = 1000 Iu)] Cyclobenzaprine [Flexeril] 5 mg PO QID PRN 03/16/23 03/16/23 History Famotidine [Pepcid] 20 mg PO HS 03/16/23 03/16/23 History Ginkgo Biloba [place] Extract [Ginkgo] 60 mg PO BID 03/16/23 03/16/23 History Ipratropium/Albuter 20-100Mcg 1 puff INHALATION RT-Q6H PRN 03/16/23 03/16/23 History [Combivent Respimat 20-100Mcg Inhaler] Levothyroxine Sodium [Synthroid] 68.5 mcg PO BENITEZ 03/16/23 03/16/23 History Levothyroxine Sodium [Synthroid] 137 mcg PO MOTUWETHFRSA 03/16/23 03/16/23 History Losartan Potassium [Cozaar] 100 mg PO DAILY 03/16/23 03/16/23 History Metoprolol Succinate (ER) [Toprol 100 mg PO DAILY 03/16/23 03/16/23 History Xl] Montelukast [Singulair] 10 mg PO HS 03/16/23 03/16/23 History Multivit-Min/FA/Lycopen/Lutein 1 tab PO HS 03/16/23 03/16/23 History [Centrum Silver Tablet] Omeprazole 20 mg PO AC-BRKFST 03/16/23 03/16/23 History amLODIPine [Norvasc] 2.5 mg PO HS 03/16/23 03/16/23 History buPROPion SR [Wellbutrin SR] 150 mg PO BID 03/16/23 03/16/23 History Allergies Allergy/AdvReac Type Severity Reaction Status Date / Time cephalexin [From Keflex] Allergy Rash/Hives Verified 03/16/23 07:32 Sulfa (Sulfonamide Allergy Rash/Hives Verified 03/16/23 07:32 Antibiotics) Surgical - Exam Vital Signs Temp Pulse Resp BP Pulse Ox 98.5 F 81 20 139/82 99 03/15/23 22:15 03/15/23 22:15 03/15/23 22:15 03/15/23 22:15 03/15/23 22:15 Physical exam: General: Well-developed, well-nourished HEENT: Normocephalic, sclerae nonicteric Abdomen: Nontender, nondistended Extremities: No edema Neuro: Alert and oriented Results - Labs 03/20/23 08:17 03/20/23 08:17 Abnormal Lab Results - Last 24 Hours (Table) 03/19/23 03/19/23 03/20/23 Range/Units 11:22 11:22 08:17 RBC 3.16 L (3.80-5.40) m/uL Hgb 10.4 L (11.4-16.0) gm/dL Hct 31.9 L (34.0-46.0) % MCV 100.7 H (80.0-100.0) fL Creatinine (0.52-1.04) mg/dL Glucose (74-99) mg/dL Calcium (8.4-10.2) mg/dL Iron 37 L (50-170) UG/DL % Saturation 11.86 L (12.00-45.00) Folate 34.90 H (4.40-31.00) ng/mL 03/20/23 Range/Units 08:17 RBC (3.80-5.40) m/uL Hgb (11.4-16.0) gm/dL Hct (34.0-46.0) % MCV (80.0-100.0) fL Creatinine 1.05 H (0.52-1.04) mg/dL Glucose 124 H (74-99) mg/dL Calcium 8.3 L (8.4-10.2) mg/dL Iron (50-170) UG/DL % Saturation (12.00-45.00) Folate (4.40-31.00) ng/mL Microbiology - Last 24 Hours (Table) 03/16/23 09:47 Blood Culture - Preliminary Blood Diabetes panel 03/20/23 Range/Units 08:17 Sodium 138 (137-145) mmol/L Potassium 3.7 (3.5-5.1) mmol/L Chloride 98 (98-107) mmol/L Carbon Dioxide 29 (22-30) mmol/L BUN 12 (7-17) mg/dL Creatinine 1.05 H (0.52-1.04) mg/dL Glucose 124 H (74-99) mg/dL Calcium 8.3 L (8.4-10.2) mg/dL Calcium panel 03/20/23 Range/Units 08:17 Calcium 8.3 L (8.4-10.2) mg/dL Pituitary panel 03/20/23 Range/Units 08:17 Sodium 138 (137-145) mmol/L Potassium 3.7 (3.5-5.1) mmol/L Chloride 98 (98-107) mmol/L Carbon Dioxide 29 (22-30) mmol/L BUN 12 (7-17) mg/dL Creatinine 1.05 H (0.52-1.04) mg/dL Glucose 124 H (74-99) mg/dL Calcium 8.3 L (8.4-10.2) mg/dL Adrenal panel 03/20/23 Range/Units 08:17 Sodium 138 (137-145) mmol/L Potassium 3.7 (3.5-5.1) mmol/L Chloride 98 (98-107) mmol/L Carbon Dioxide 29 (22-30) mmol/L BUN 12 (7-17) mg/dL Creatinine 1.05 H (0.52-1.04) mg/dL Glucose 124 H (74-99) mg/dL Calcium 8.3 L (8.4-10.2) mg/dL Assessment and Plan (1) Anemia Narrative/Plan: 77-year-old female with anemia. This patient requires long-term anticoagulation. We offered proceeding with upper and lower endoscopy this admission. Patient states she will consider but currently she is not interested in doing so. Certainly if the patient has evidence of rectal bleeding or melena after resuming eloquis recommend returning to the hospital if she is discharged. Current Visit: Yes Status: Acute Code(s): D64.9 - ANEMIA, UNSPECIFIED SNOMED Code(s): 821105058
[2023-03-20] MEDS: APIXABAN 5 MG TAB PO SCH ×2 (13:00→20:42)
--- NOTE | 2023-03-20 18:33 | P.PN ---
Subjective This is a pleasant 77 years old female with multiple medical problems as below. Presents because of breathing difficulty of one-day duration. No specific worsening cough or phlegm, she has occasional chronic cough with clear phlegm. She was developing chest pain, since yesterday about 10/27, central nonradiating felt like sharp and constant with no precipitation by deep breath or coughing. She denies any change in her urine habit or bowel habits, she has some nausea but no headache dizziness weakness or numbness Denies smoking on she denies drinking alcohol however she smokes marijuana. Her PCP is informed that given pills but she plan to switch to the area. Patient says that she has history of pulmonary embolism twice in 2011 and she is taking liquids at home Patient Vitas looks stable. CBC, INR, BMP and LFTs were unremarkable. And is elevated at 0.08 and 0.07. His BNP elevated 4690. Influenza A and type B, RSV, SARS (coronavirus) are and detected EKG showing normal sinus rhythm and 81, LVH, no ST-T changes and QTC 446. Cardiomegaly with pulmonary vascular congestion suspicious for CHF. Started on heparin drip, aspirin 325 mg and Lasix 40 mg twice daily. 03/17/2023 Patient underwent cardiac cath today with logistics technician team showing evidence of right coronary artery stenosis about 80-90% lesion with evidence of Gareth rupt ure. Patient would proceed with stent placement at the second sensation of cardiac cath with Dr. Mckeon, hopefully today. I then that patient denies chest pain or dyspnea, no other new complaint Vitals stable Labs a stable Low potassium replaced TSH is normal Patient remains on aspirin 325 mg Patient remains on IV Lasix 40 mg twice a day and her breathing is improving 03/18/2023 Patient status post PCI to RCA. No chest pain no dyspnea. She looks very tired. IV Lasix wished oral dose. Also she was placed on liquids and Plavix 12 months. Continue monitoring for the 03/19/2023 Patient breathing is much improved and IV Lasix wished to oral torsemide 20 mg daily for CHF Today patient with no chest pain, no other new complaints, patient was asking if she can go home area She status post PCI to the RCA and she was on Plavix, aspirin 81 mg added, Eliquis which she takes for history of PE is on hold, Her hemoglobin dropped 12 down to 10, therefore we will do anemia workup Protonix twice daily Discussed with patient and cardiology team and they agreement. We'll keep monitoring closely 03/20/2023 03/20/2023 Hemoglobin is stable, vitals stable. Anemia workup showing iron deficiency anemia, ferrous sulfate started Surgery team discussed plan is of management with patient, she prefers to start Eliquis today and check her hemoglobin tomorrow and if no more patient's wants to leave and follow-up for outpatient. Eliquis is resumed, patient states she has history of pulmonary embolism 2. Patient also on aspirin and Plavix by cardiology team, we'll defer the management of antiplatelet therapy to cartilage team. This was discussed with the bedside nurse as well. Objective - Vital Signs Vital signs: Vital Signs Temp 97.9 F 03/20/23 08:55 Pulse 71 03/20/23 08:55 Resp 16 03/20/23 08:55 BP 100/62 03/20/23 08:55 Pulse Ox 100 03/20/23 08:55 FiO2 Intake & Output 03/19/23 03/20/23 03/20/23 18:59 06:59 18:59 Intake Total 480 Output Total 1100 Balance 480 -1100 Weight 103 kg Intake: Oral 480 Output: Urine 1100 Other: Voiding Method Toilet Toilet Toilet # Voids 2 - Exam GENERAL: The patient is alert and oriented x3, not in any acute distress. Well developed, well nourished. HEENT: Pupils are round and equally reacting to light. EOMI. No scleral icterus. No conjunctival pallor. Normocephalic, atraumatic. No pharyngeal erythema. No thyromegaly. CARDIOVASCULAR: S1 and S2 present. No murmurs, rubs, or gallops. PULMONARY: Chest is clear to auscultation, no wheezing , no crackles. ABDOMEN: Soft, nontender, nondistended, normoactive bowel sounds. No palpable organomegaly. MUSCULOSKELETAL: No joint swelling or deformity. EXTREMITIES: No cyanosis, clubbing, or pedal edema. NEUROLOGICAL: Gross neurological examination did not reveal any focal deficits. SKIN: No rashes. no petechiae. - Labs CBC & Chem 7: 03/20/23 08:17 03/20/23 08:17 Labs: Abnormal Lab Results - Last 24 Hours (Table) 03/19/23 03/19/23 03/20/23 Range/Units 11:22 11:22 08:17 RBC 3.16 L (3.80-5.40) m/uL Hgb 10.4 L (11.4-16.0) gm/dL Hct 31.9 L (34.0-46.0) % MCV 100.7 H (80.0-100.0) fL Creatinine (0.52-1.04) mg/dL Glucose (74-99) mg/dL Calcium (8.4-10.2) mg/dL Iron 37 L (50-170) UG/DL % Saturation 11.86 L (12.00-45.00) Folate 34.90 H (4.40-31.00) ng/mL 03/20/23 Range/Units 08:17 RBC (3.80-5.40) m/uL Hgb (11.4-16.0) gm/dL Hct (34.0-46.0) % MCV (80.0-100.0) fL Creatinine 1.05 H (0.52-1.04) mg/dL Glucose 124 H (74-99) mg/dL Calcium 8.3 L (8.4-10.2) mg/dL Iron (50-170) UG/DL % Saturation (12.00-45.00) Folate (4.40-31.00) ng/mL Microbiology - Last 24 Hours (Table) 03/16/23 09:47 Blood Culture - Preliminary Blood Assessment and Plan Assessment: Non-STEMI status post cardiac cath showing RCA stenosis 80-90% and status post PCI on 03/18 Acute on chronic systolic CHF with ejection fraction 40%, Moderate mitral regurgitation Hypertension Obesity with BMI of 37.3. History of 2 pulmonary embolism in 2011 she is on Eliquis at home Plan: Continue with Eliquis ( resumed) and monitor hemoglobin. The decision to continue off at either or both Plavix and aspirin is deferred to cardiology team Continue with oral torsemide cardiology consult Labs and medication were reviewed.. Continue same treatment. Continue with symptomatic treatment. Resume home medication. Monitor labs and vitals. DVT and GI prophylaxis. Further recommendations as per clinical course of the patient DVT prophylaxis: Eliquis, on hold GI Prophylaxis: Ppi Prognosis is guarded Patient may be considered for discharge tomorrow if she remains stable and hemoglobin stable or improving
[2023-03-20] MEDS: MONTELUKAST 10 MG TAB PO SCH (20:42)
[2023-03-20] MEDS: ATORVASTATIN 20 MG TAB PO SCH (20:42)
[2023-03-20] MEDS: amLODIPine 2.5 MG TAB PO SCH (20:42)
[2023-03-21] MEDS: NITROGLYCERIN OINT 1 INCH/GM PACKET TOPICAL SCH ×2 (00:21→09:44)
[2023-03-21] MEDS: ALPRAZolam 0.5 MG TAB PO PRN (00:22)
[2023-03-21] MEDS: SODIUM CHLORIDE 0.9% 1,000 ML in EMPTY BAG 1 BAG IV SCH (06:13)
[2023-03-21] MEDS: PANTOPRAZOLE 40 MG TABLET PO SCH (06:16)
[2023-03-21] MEDS: FERROUS SULFATE 325 MG TAB PO SCH (06:16)
[2023-03-21] MEDS: ACETAMINOPHEN TAB 325 MG TAB PO PRN (06:17)
[2023-03-21 06:46] LABS: Basophils % (A) 0 %; Eosinophils # (A) 0.2 k/uL (0-0.7); Eosinophils % (A) 4 %; HCT 30.4 % (34.0-46.0); Lymphocytes # (A) 1.7 k/uL (1.0-4.8); Lymphocytes % (A) 26 %; MCH 32.4 pg (25.0-35.0); MCHC 33.1 g/dL (31.0-37.0); MCV 98.1 fL (80.0-100.0); Mean Platelet Volume 8.8; Monocytes # (A) 0.6 k/uL (0-1.0); Monocytes % (A) 9 %; Neutrophils # (A) 3.8 k/uL (1.3-7.7); Neutrophils % (A) 58 %; Platelet Count 188 k/uL (150-450); RDW 13.3 % (11.5-15.5); WBC 6.5 k/uL (3.8-10.6)
[2023-03-21] MEDS: APIXABAN 5 MG TAB PO SCH (09:40)
[2023-03-21] MEDS: CLOPIDOGREL 75 MG TAB PO SCH (09:40)
[2023-03-21] MEDS: ASPIRIN 81 MG PO SCH (09:40)
[2023-03-21] MEDS: METOPROLOL SUCCINATE (ER) 100 MG TAB.ER.24H PO SCH (09:41)
[2023-03-21] MEDS: LOSARTAN 25 MG TAB PO SCH (09:41)
[2023-03-21] MEDS: CHOLECALCIFEROL 25 MCG (1000 IU) TABLET PO SCH (09:41)
[2023-03-21] MEDS: TORSEMIDE 20 MG TAB PO SCH (09:46)
[2023-03-21] MEDS: buPROPion SR 150 MG TABLET.ER PO SCH (09:46)
[2023-03-21] MEDS: LEVOTHYROXINE 137 MCG TAB PO SCH (09:47)
[2023-03-21 10:38] VITALS: RESP 17
--- NOTE | 2023-03-21 13:20 | P.PN ---
Subjective Progress Note Date: 03/21/23 CHIEF COMPLAINT: Anemia HISTORY OF PRESENT ILLNESS: She is lying in bed comfortably. She denies any abdominal pain. Reports having a brown stools. Denies any nausea or vomiting. She is felt cardiology and is scheduled for discharge today. Afebrile. Hemoglobin stable at 10.0. Patient has history of PE requiring long-term anticoagulation. Also history of coronary disease with recent cardiac stent. Currently on Eliquis and plavix PHYSICAL EXAM: VITAL SIGNS: Reviewed. GENERAL: Well-developed in no acute distress. ABDOMEN: Soft. Nondistended. Nontender. NEUROLOGIC: Alert and oriented. Cranial nerves II through XII grossly intact. ASSESSMENT: 1. Anemia PLAN: -Patient currently has declined EGD and colonoscopy at this time -Patient's hemoglobin has remained stable. No signs of bleeding. Patient can be discharged for surgical standpoint. -Continue to monitor for any signs or symptoms of bleeding -Continue to follow up with PCP and monitor CBC outpatient Physician Aquatic Biologist note has been reviewed by physician. Signing provider agrees with the documented findings, assessment, and plan of care. Objective - Vital Signs Vital signs: Vital Signs Temp 97.3 F L 03/21/23 12:00 Pulse 66 03/21/23 12:00 Resp 17 03/21/23 12:00 BP 97/63 03/21/23 12:00 Pulse Ox 97 03/21/23 12:00 FiO2 Intake & Output 03/20/23 03/21/23 03/21/23 18:59 06:59 18:59 Intake Total 598 702 Output Total 300 Balance 298 702 Intake: Oral 598 702 Output: Urine 300 Other: Voiding Method Toilet Toilet Toilet # Voids 2 1 - Labs CBC & Chem 7: 03/21/23 05:39 03/20/23 08:17 Labs: Abnormal Lab Results - Last 24 Hours (Table) 03/21/23 Range/Units 05:39 RBC 3.10 L (3.80-5.40) m/uL Hgb 10.0 L (11.4-16.0) gm/dL Hct 30.4 L (34.0-46.0) %
--- NOTE | 2023-03-21 14:32 | P.PN ---
Subjective Progress Note Date: 03/21/23 SUBJECTIVE: Patient underwent PCI to RCA 03/17. Post intervention her right radial exercise appears to be intact with no swelling or hematoma. Good distal pulses. Patient reports that she is much better since the time of admission. Denies any chest pain and no shortness of breath. Blood pressure noted to be on the soft side. Lab shows creatinine 1. Hemoglobin 10. PHYSICAL EXAMINATION Vital signs reviewed. Head: Normocephalic. Eyes: Sclerae nonicteric. Neck: Brisk carotid upstroke, no jugular venous distention. Lungs: Clear to auscultation. Heart: Regular rate and rhythm, S1-S2, no S3, no murmur or rub. Extremities: No edema, intact distal pulses. ASSESSMENT NSTEMI status post PCI to RCA. Moderate nonobstructive mid LAD disease ifr negative COPD Hypertension History of TAVR with bioprosthetic aortic valve Mild HFrEF exacerbation PLAN Continue Aspirin, Plavix, atorvastatin Continue eliquis Reduce losartan to 12.5 mg because of low blood pressure Continue metoprolol succinate 100 mg daily Discharged on torsemide 20 mg to go home with Outpatient follow-up with Dr. Law. Patient is cleared to be discharged from cardiac standpoint tomorrow if heart pressures is stab Nurse practitioner note has been reviewed, I agree with the documented findings and plan of care. Patient was seen and examined. Objective - Vital Signs Vital signs: Vital Signs Temp 97.8 F 03/21/23 08:00 Pulse 66 03/21/23 08:00 Resp 17 03/21/23 08:00 BP 108/66 03/21/23 08:00 Pulse Ox 99 03/21/23 08:00 FiO2 Intake & Output 03/20/23 03/21/23 03/21/23 18:59 06:59 18:59 Intake Total 598 222 Output Total 300 Balance 298 222 Intake: Oral 598 222 Output: Urine 300 Other: Voiding Method Toilet Toilet # Voids 2 - Labs CBC & Chem 7: 03/21/23 05:39 03/20/23 08:17 Labs: Abnormal Lab Results - Last 24 Hours (Table) 03/21/23 Range/Units 05:39 RBC 3.10 L (3.80-5.40) m/uL Hgb 10.0 L (11.4-16.0) gm/dL Hct 30.4 L (34.0-46.0) %
[2023-03-21 16:23] VITALS: BP 101/66; PULSE 65; TEMP 97.5
[2023-03-22] MEDS ORDERED: LOSARTAN 25 MG TAB PO SCH (09:00)
--- NOTE | 2023-03-23 01:04 | P.DS ---
Providers Date of admission: 03/16/23 01:27 Attending physician: Adriane Ryan Consults: 03/17/23 23:29 Consult Physician Routine Consulting Provider: [facility] Consult Reason/Comments: Post Interventional Patient Do you want consulting provider notified?: Already Contacted 03/20/23 07:48 Consult Physician Routine Consulting Provider: Anthony Murray Consult Reason/Comments: anemia (BRANDON) Do you want consulting provider notified?: Yes Primary care physician: Stated None Hospital Course: Disease: Non-STEMI status post cardiac cath showing RCA stenosis 80-90% and status post PCI on 03/18 Acute on chronic systolic CHF with ejection fraction 40%, Moderate mitral regurgitation Hypertension Obesity with BMI of 37.3. History of 2 pulmonary embolism in 2011 she is on Eliquis at home Hospital course: This is a pleasant 77 years old female with multiple medical problems as below. Presents because of breathing difficulty of one-day duration. To have non-STEMI she status post cardiac cath showing RCA stenosis about 90% mid area of plaque rupture status post PCI on 03/18, patient been followed by street flusher driver closely. I saw Dr. Genao today and he confirmed to me patient will be discharge upon his recommendation on aspirin and Plavix 2 week together without Eliquis and after 2 weeks stop aspirin and continue with Plavix and Eliquis these information are provided for the patient both verbally and written and she verbalized understanding and acceptance. Risk of bleeding splint to her extensively and she agrees taking medication. She has evidence of ischemic cardiomyopathy, EF 40%. She responded to IV Lasix to switch to torsemide upon discharge. Also she has moderate mitral regurgitation. Because of history of pulmonary embolism she is on Eliquis which she confirms she has a Home. Today she is back to baseline hemoglobin stable, vitals stable and she is eager to go home. Patient was cleared for discharge by cardiology and Gen. surgery teams. Problems and management plan were discussed with the patient and he verbalized understanding and acceptance Patient was found stable and can be discharged home in guarded prognosis however he needs follow-up as an outpatient. Patient was instructed to follow up with PCP Dr. Scott within one week and patient agrees Patient was instructed to follow up with her street flusher driver Dr. Genao/Dr. Law in 1 week she has another street flusher driver from outside facility she can follow up with Dr. Beck. Patient was instructed to follow up with general surgeon Dr. Gonzalez with 2 weeks and she agrees Physical exam Gen: patient is a AAOx3, no distress CVS: S1-S2, RRR, no murmur Lungs: B/L CTA, no wheezing Abdomen: soft, no distention, no tenderness, positive bowel sounds Extremity: no leg edema or induration Time spent more than 35 minutes Patient Condition at Discharge: Serious Plan - Discharge Summary Discharge Rx Participant: No New Discharge Prescriptions: New Ferrous Sulfate [Iron (65 MG Elemental)] 325 mg PO BID 30 Days #60 tab Aspirin [Adult Low Dose Aspirin EC] 81 mg PO DAILY 14 Days #14 tab Losartan [Cozaar] 12.5 mg PO DAILY 30 Days #15 tab Torsemide [Demadex] 20 mg PO DAILY #30 tablet Nitroglycerin Sl Tabs [Nitrostat] 0.4 mg SUBLINGUAL Q5M PRN #20 tab PRN Reason: Chest Pain Clopidogrel [Plavix] 75 mg PO DAILY #30 tablet Continue Multivit-Min/FA/Lycopen/Lutein [Centrum Silver Tablet] 1 tab PO HS Cholecalciferol [Vitamin D3 (25 Mcg = 1000 Iu)] 25 mcg PO DAILY Calcium Carbonate [Calcium] 600 mg PO DAILY Levothyroxine Sodium [Synthroid] 68.5 mcg PO BENITEZ Levothyroxine Sodium [Synthroid] 137 mcg PO MOTUWETHFRSA Famotidine [Pepcid] 20 mg PO HS Apixaban [Eliquis] 5 mg PO BID Ginkgo Biloba [place] Extract [Ginkgo] 60 mg PO BID Montelukast [Singulair] 10 mg PO HS Metoprolol Succinate (ER) [Toprol XL] 100 mg PO DAILY Cyclobenzaprine [Flexeril] 5 mg PO QID PRN PRN Reason: Muscle Spasm buPROPion SR [Wellbutrin SR] 150 mg PO BID Ipratropium/Albuter 20-100Mcg [Combivent Respimat 20-100Mcg Inhaler] 1 puff INHALATION RT-Q6H PRN PRN Reason: Shortness Of Breath amLODIPine [Norvasc] 2.5 mg PO HS Atorvastatin [Lipitor] 20 mg PO HS Albuterol Inhaler [Ventolin Hfa Inhaler] 1 puff INHALATION RT-Q4H PRN PRN Reason: Shortness Of Breath Changed Omeprazole 20 mg PO BID 30 Days #60 Discontinued Losartan Potassium [Cozaar] 100 mg PO DAILY Discharge Medication List Albuterol Inhaler [Ventolin Hfa Inhaler] 1 puff INHALATION RT-Q4H PRN 03/16/23 [History] Apixaban [Eliquis] 5 mg PO BID 03/16/23 [History] Atorvastatin [Lipitor] 20 mg PO HS 03/16/23 [History] Calcium Carbonate [Calcium] 600 mg PO DAILY 03/16/23 [History] Cholecalciferol [Vitamin D3 (25 Mcg = 1000 Iu)] 25 mcg PO DAILY 03/16/23 [History] Cyclobenzaprine [Flexeril] 5 mg PO QID PRN 03/16/23 [History] Famotidine [Pepcid] 20 mg PO HS 03/16/23 [History] Ginkgo Biloba [place] Extract [Ginkgo] 60 mg PO BID 03/16/23 [History] Ipratropium/Albuter 20-100Mcg [Combivent Respimat 20-100Mcg Inhaler] 1 puff INHALATION RT-Q6H PRN 03/16/23 [History] Levothyroxine Sodium [Synthroid] 68.5 mcg PO BENITEZ 03/16/23 [History] Levothyroxine Sodium [Synthroid] 137 mcg PO MOTUWETHFRSA 03/16/23 [History] Metoprolol Succinate (ER) [Toprol XL] 100 mg PO DAILY 03/16/23 [History] Montelukast [Singulair] 10 mg PO HS 03/16/23 [History] Multivit-Min/FA/Lycopen/Lutein [Centrum Silver Tablet] 1 tab PO HS 03/16/23 [History] amLODIPine [Norvasc] 2.5 mg PO HS 03/16/23 [History] buPROPion SR [Wellbutrin SR] 150 mg PO BID 03/16/23 [History] Aspirin [Adult Low Dose Aspirin EC] 81 mg PO DAILY 14 Days #14 tab 03/21/23 [Rx] Clopidogrel [Plavix] 75 mg PO DAILY #30 tablet 03/21/23 [Rx] Ferrous Sulfate [Iron (65 MG Elemental)] 325 mg PO BID 30 Days #60 tab 03/21/23 [Rx] Losartan [Cozaar] 12.5 mg PO DAILY 30 Days #15 tab 03/21/23 [Rx] Nitroglycerin Sl Tabs [Nitrostat] 0.4 mg SUBLINGUAL Q5M PRN #20 tab 03/21/23 [Rx] Omeprazole 20 mg PO BID 30 Days #60 03/21/23 [Rx] Torsemide [Demadex] 20 mg PO DAILY #30 tablet 03/21/23 [Rx] Follow up Appointment(s)/Referral(s): Wolfgang, pts. own [Other] - 1 Week Anthony Murray MD [Medical Doctor] - As Needed Jeremias Law MD [STAFF PHYSICIAN] - 1 Week Patient Instructions/Handouts: *Surgery [facility] - After Heart Catheterization - Commercial Estimator Instructions, Heart Attack (DC), Safe Use of Antiplatelet Medication (DC) Activity/Diet/Wound Care/Special Instructions: low fiber diet activity is restricted till you see your doctor continue aspirin for 2 weeks and plavix and Eliquis, and for 30 days, and close outpatient follow-up with cardiology monitor for signs of bleeding and tells your doctor right away or call 911 and come to emergency , including but not limited to blood in stool or black stool Prescriptions were sent to [facility] pharmacy Discharge Disposition: HOME SELF-CARE
== END 2023-03-21 16:21 | disposition home or self-care (01) | DRG 321 ==
LOC: EC 20:53 → 3SCARD 03-16 01:27
PROVIDERS: ADMIT Hospitalist; ATTEND Hospitalist
PROC: 4A023N7 Measurement of Cardiac Sampling and Pressure, Left Heart, Percutaneous Approach (ICD-10-PCS; 2023-03-17)
PROC: B2111ZZ Fluoroscopy of Multiple Coronary Arteries using Low Osmolar Contrast (ICD-10-PCS; 2023-03-17)
PROC: 027034Z Dilation of Coronary Artery, One Artery with Drug-eluting Intraluminal Device, Percutaneous Approach (ICD-10-PCS; principal; 2023-03-17 10:30)
PROC: B240ZZ3 Ultrasonography of Single Coronary Artery, Intravascular (ICD-10-PCS; 2023-03-17 17:55)
DX: I21.4 Non-ST elevation (NSTEMI) myocardial infarction (principal); I50.23 Acute on chronic systolic (congestive) heart failure; I11.0 Hypertensive heart disease with heart failure; I25.10 Atherosclerotic heart disease of native coronary artery without angina pectoris; I34.0 Nonrheumatic mitral (valve) insufficiency; E66.9 Obesity, unspecified; Z79.01 Long term (current) use of anticoagulants; Z86.711 Personal history of pulmonary embolism; I25.5 Ischemic cardiomyopathy; D50.9 Iron deficiency anemia, unspecified; E03.9 Hypothyroidism, unspecified; E78.5 Hyperlipidemia, unspecified; J44.9 Chronic obstructive pulmonary disease, unspecified; Z96.659 Presence of unspecified artificial knee joint; Z68.39 Body mass index [BMI] 39.0-39.9, adult; Z79.02 Long term (current) use of antithrombotics/antiplatelets; Z79.82 Long term (current) use of aspirin; Z79.890 Hormone replacement therapy; Z79.899 Other long term (current) drug therapy; Z95.0 Presence of cardiac pacemaker; Z90.710 Acquired absence of both cervix and uterus; Z95.3 Presence of xenogenic heart valve
CPT/HCPCS: 36415; 71046; 80048; 80051; 80053; 80061; 82607; 82728; 82746; 83540; 83550; 83880; 84443; 84484; 85025; 85027; 85610; 85730; 87040; 87636; 92978; 93005; 93306; 93454; 94760; 96365; 96366; 96375; 96376; 99285

== ENCOUNTER 2023-05-22 11:39 | Inpatient (IN) | payer MEDICARE ==
[2023-05-22 12:14] LABS: Basophils % (A) 0 %; Eosinophils # (A) 0.1 k/uL (0-0.7); Eosinophils % (A) 1 %; Hypochromasia Slight; Lymphocytes # (A) 0.7 k/uL (1.0-4.8); Lymphocytes % (A) 10 %; MCH 32.9 pg (25.0-35.0); MCHC 33.3 g/dL (31.0-37.0); MCV 98.8 fL (80.0-100.0); Mean Platelet Volume 8.7; Monocytes # (A) 0.5 k/uL (0-1.0); Monocytes % (A) 8 %; Neutrophils # (A) 5.7 k/uL (1.3-7.7); Neutrophils % (A) 79 %; Platelet Count 169 k/uL (150-450); RBC 3.04 m/uL (3.80-5.40); RDW 13.5 % (11.5-15.5); WBC 7.1 k/uL (3.8-10.6)
--- NOTE | 2023-05-22 12:14 | ED ---
General Adult HPI - General Chief complaint: Shortness of Breath Stated complaint: KEN Time Seen by Provider: 05/22/23 11:44 Source: patient, EMS, RN notes reviewed, old records reviewed Mode of arrival: EMS Limitations: no limitations - History of Present Illness Initial comments: 77-year-old female with recent admission for UTI and DIANE presenting for evaluation of dyspnea, she does report a mild cough which is nonproductive. No central chest pain. No fever. No abdominal pain. No lower extremity pain or swelling. Patient does report history of CHF and she reports orthopnea and PND. - Related Data Home Medications Medication Instructions Recorded Confirmed Apixaban [Eliquis] 5 mg PO BID 03/16/23 05/18/23 Atorvastatin [Lipitor] 20 mg PO HS 03/16/23 05/18/23 Calcium Carbonate [Calcium] 600 mg PO DAILY 03/16/23 05/18/23 Cholecalciferol [Vitamin D3 (25 25 mcg PO DAILY 03/16/23 05/18/23 Mcg = 1000 Iu)] Ginkgo Biloba [place] Extract [Ginkgo] 60 mg PO BID 03/16/23 05/18/23 Levothyroxine Sodium [Synthroid] 68.5 mcg PO BENITEZ 03/16/23 05/18/23 Levothyroxine Sodium [Synthroid] 137 mcg PO MOTUWETHFRSA 03/16/23 05/18/23 Metoprolol Succinate (ER) [Toprol 100 mg PO DAILY 03/16/23 05/18/23 XL] Montelukast [Singulair] 10 mg PO HS 03/16/23 05/18/23 Multivit-Min/FA/Lycopen/Lutein 1 tab PO HS 03/16/23 05/18/23 [Centrum Silver Tablet] amLODIPine [Norvasc] 2.5 mg PO HS 03/16/23 05/18/23 buPROPion SR [Wellbutrin SR] 150 mg PO BID 03/16/23 05/18/23 Losartan Potassium [Cozaar] 100 mg PO DAILY 05/18/23 05/18/23 Omeprazole 20 mg PO BID 05/18/23 05/18/23 Previous Rx's Medication Instructions Recorded Nitroglycerin Sl Tabs [Nitrostat] 0.4 mg SUBLINGUAL Q5M PRN #20 tab 03/21/23 Levofloxacin [Levaquin] 250 mg PO DAILY 2 Days #2 tablet 05/21/23 Allergies Allergy/AdvReac Type Severity Reaction Status Date / Time cephalexin [From Keflex] Allergy Rash/Hives Verified 05/22/23 11:47 Sulfa (Sulfonamide Allergy Rash/Hives Verified 05/22/23 11:47 Antibiotics) Review of Systems ROS Statement: Those systems with pertinent positive or pertinent negative responses have been documented in the HPI. ROS Other: All systems not noted in ROS Statement are negative. Past Medical History Past Medical History: COPD, Hyperlipidemia, Hypertension, Pulmonary Embolus (PE), Thyroid Disorder History of Any Multi-Drug Resistant Organisms: None Reported Past Surgical History: Cholecystectomy, Hysterectomy, Pacemaker Additional Past Surgical History / Comment(s): Heart valve replacement, thyroid surgery, wrist surgery, neck surgery, knee replacement x3. Past Anesthesia/Blood Transfusion Reactions: No Reported Reaction Type of Cardiac Device: Permanent Pacemaker Device Placement Date:: 08/18/20 Past Psychological History: No Psychological Hx Reported Smoking Status: Never smoker Past Alcohol Use History: Occasional Past Drug Use History: None Reported - Past Family History Father Family Medical History: COPD, Myocardial Infarction ([place]) General Exam Limitations: no limitations General appearance: alert, in no apparent distress Head exam: Present: atraumatic, normocephalic Eye exam: Present: normal appearance, PERRL ENT exam: Present: normal exam Neck exam: Present: normal inspection. Absent: tenderness, meningismus Respiratory exam: Present: rales, decreased breath sounds. Absent: respiratory distress, wheezes, rhonchi Cardiovascular Exam: Present: regular rate, normal rhythm GI/Abdominal exam: Present: soft. Absent: distended, tenderness Extremities exam: Present: normal inspection, normal capillary refill. Absent: pedal edema, calf tenderness Neurological exam: Present: alert, oriented X3, CN II-XII intact. Absent: motor sensory deficit Psychiatric exam: Present: normal affect, normal mood Skin exam: Present: warm, dry, intact. Absent: cyanosis, diaphoretic Course Vital Signs 05/22/23 11:41 Temperature 98.7 F Pulse Rate 75 Respiratory 22 Rate Blood Pressure 129/68 O2 Sat by Pulse 97 Oximetry Medical Decision Making - Medical Decision Making Was pt. sent in by a medical professional or institution (, PA, RUNNER OUT, urgent care, hospital, or usp...) When possible be specific @ -No Did you speak to anyone other than the patient for history (EMS, parent, family, police, friend...)? What history was obtained from this source @ -No Did you review nursing and triage notes (agree or disagree)? Why? @ -I reviewed and agree with nursing and triage notes Were old charts reviewed (outside hosp., previous admission, EMS record, old EKG, old radiological studies, urgent care reports/EKG's, usp records)? Report findings @ -No old charts were reviewed Differential Diagnosis (chest pain, altered mental status, abdominal pain women, abdominal pain men, vaginal bleeding, weakness, fever, dyspnea, syncope, headache, dizziness, GI bleed, back pain, seizure, CVA, palpatations, mental health, musculoskeletal)? @Differential Dyspnea: Coronary syndrome, arrhythmia, tamponade, asthma, COPD, pulmonary embolism, pneumonia, pneumothorax, pulmonary effusion, anaphylaxis, diabetic ketoacidosis, flailed chest, pulmonary contusion, diaphragmatic rupture, anemia, neuromuscular, this is not meant to be an all-inclusive list. EKG interpreted by me (3pts min.). @ -Paced rhythm rate of 78, TX interval 226, QRS duration 193, QTc 525 X-rays interpreted by me (1pt min.). @Chest x-ray showing pulmonary vascular congestion, bilateral trace effusions CT interpreted by me (1pt min.). @ -None done U/S interpreted by me (1pt. min.). @ -None done What testing was considered but not performed or refused? (CT, X-rays, U/S, labs)? Why? @ -None What meds were considered but not given or refused? Why? @ -None Did you discuss the management of the patient with other professionals (professionals i.e. , PA, RUNNER OUT, lab, RT, psych nurse, director social, carousel attendant, teacher, community liaison officer, case packer and sealer)? Give summary @ -No Was smoking cessation discussed for >3mins.? @ -No Was critical care preformed (if so, how long)? @ -No Were there social determinants of health that impacted care today? How? (Homelessness, low income, unemployed, alcoholism, drug addiction, transportation, low edu. Level, literacy, decrease access to med. care, fci, rehab)? @ -No Was there de-escalation of care discussed even if they declined (Discuss DNR or withdrawal of care, Hospice)? DNR status @ -No What co-morbidities impacted this encounter? (DM, HTN, Smoking, COPD, CAD, Cancer, CVA, ARF, Chemo, Hep., AIDS, mental health diagnosis, sleep apnea, morbid obesity)? @ -Hypertension, CHF Was patient admitted / discharged? Hospital course, mention meds given and route, prescriptions, significant lab abnormalities, going to OR and other pertinent info. @ -[77-year-old female presenting for evaluation of dyspnea, orthopnea after recent admission for DIANE and UTI. Patient not currently on diuretic. Chest x- ray does show concern for CHF. Patient has moderate conversational dyspnea without hypoxia. She will be observed for IV diuresis. She has a negative troponin and significantly elevated BNP. Undiagnosed new problem with uncertain prognosis? @ -No Drug Therapy requiring intensive monitoring for toxicity (Heparin, Nitro, Insulin, Cardizem)? @ -No Were any procedures done? @ -No Diagnosis/symptom? @CHF exacerbation Acute, or Chronic, or Acute on Chronic? @ -Acute Uncomplicated (without systemic symptoms) or Complicated (systemic symptoms)? @ -Default Side effects of treatment? @ -No Exacerbation, Progression, or Severe Exacerbation? @ -No Poses a threat to life or bodily function? How? (Chest pain, [place], [place], pneumonia, PE, COPD, DKA, ARF, appy, cholecystitis, CVA, Diverticulitis, Homicidal, Suicidal, threat to staff... and all critical care pts) @ -[Moderate risk, CHF - Lab Data Result diagrams: 05/22/23 11:57 05/22/23 11:57 Lab Results 05/22/23 05/22/23 05/22/23 Range/Units 11:57 11:57 11:57 WBC 7.1 (3.8-10.6) k/uL RBC 3.04 L (3.80-5.40) m/uL Hgb 10.0 L (11.4-16.0) gm/dL Hct 30.0 L (34.0-46.0) % MCV 98.8 (80.0-100.0) fL MCH 32.9 (25.0-35.0) pg MCHC 33.3 (31.0-37.0) g/dL RDW 13.5 (11.5-15.5) % Plt Count 169 (150-450) k/uL MPV 8.7 Neutrophils % 79 % Lymphocytes % 10 % Monocytes % 8 % Eosinophils % 1 % Basophils % 0 % Neutrophils # 5.7 (1.3-7.7) k/uL Lymphocytes # 0.7 L (1.0-4.8) k/uL Monocytes # 0.5 (0-1.0) k/uL Eosinophils # 0.1 (0-0.7) k/uL Basophils # 0.0 (0-0.2) k/uL Hypochromasia Slight PT 12.4 (10.0-12.5) sec INR 1.2 H (<1.2) APTT 25.7 (22.0-30.0) sec Sodium 134 L (137-145) mmol/L Potassium 3.6 (3.5-5.1) mmol/L Chloride 108 H (98-107) mmol/L Carbon Dioxide 20 L (22-30) mmol/L Anion Gap 6 mmol/L BUN 9 (7-17) mg/dL Creatinine 1.03 (0.52-1.04) mg/dL Est GFR (CKD-EPI)AfAm 62 (>60 ml/min/1.73 sqM) Est GFR (CKD-EPI)NonAf 53 (>60 ml/min/1.73 sqM) Glucose 168 H (74-99) mg/dL Calcium 8.2 L (8.4-10.2) mg/dL Magnesium 1.3 L (1.6-2.3) mg/dL Total Bilirubin 0.9 (0.2-1.3) mg/dL AST 24 (14-36) U/L ALT 17 (4-34) U/L Alkaline Phosphatase 97 (38-126) U/L Troponin I (0.000-0.034) ng/mL NT-Pro-B Natriuret Pep 39007 pg/mL Total Protein 5.7 L (6.3-8.2) g/dL Albumin 3.2 L (3.5-5.0) g/dL 05/22/23 Range/Units 11:57 WBC (3.8-10.6) k/uL RBC (3.80-5.40) m/uL Hgb (11.4-16.0) gm/dL Hct (34.0-46.0) % MCV (80.0-100.0) fL MCH (25.0-35.0) pg MCHC (31.0-37.0) g/dL RDW (11.5-15.5) % Plt Count (150-450) k/uL MPV Neutrophils % % Lymphocytes % % Monocytes % % Eosinophils % % Basophils % % Neutrophils # (1.3-7.7) k/uL Lymphocytes # (1.0-4.8) k/uL Monocytes # (0-1.0) k/uL Eosinophils # (0-0.7) k/uL Basophils # (0-0.2) k/uL Hypochromasia PT (10.0-12.5) sec INR (<1.2) APTT (22.0-30.0) sec Sodium (137-145) mmol/L Potassium (3.5-5.1) mmol/L Chloride (98-107) mmol/L Carbon Dioxide (22-30) mmol/L Anion Gap mmol/L BUN (7-17) mg/dL Creatinine (0.52-1.04) mg/dL Est GFR (CKD-EPI)AfAm (>60 ml/min/1.73 sqM) Est GFR (CKD-EPI)NonAf (>60 ml/min/1.73 sqM) Glucose (74-99) mg/dL Calcium (8.4-10.2) mg/dL Magnesium (1.6-2.3) mg/dL Total Bilirubin (0.2-1.3) mg/dL AST (14-36) U/L ALT (4-34) U/L Alkaline Phosphatase (38-126) U/L Troponin I 0.032 (0.000-0.034) ng/mL NT-Pro-B Natriuret Pep pg/mL Total Protein (6.3-8.2) g/dL Albumin (3.5-5.0) g/dL Disposition Clinical Impression: Congestive heart failure Disposition: ADMITTED IP TO THIS [facility] Condition: Stable Is patient prescribed a controlled substance at d/c from ED?: No Referrals: Nonstaff,Physician [Primary Care Provider] - 1-2 days Time of Disposition: 13:20
[2023-05-22 12:32] LABS: ALT 17 U/L (4-34); AST 24 U/L (14-36); African American GFR (CKD) 62 (>60 ml/min/1.73 sqM); Albumin 3.2 g/dL (3.5-5.0); Alkaline Phosphatase 97 U/L (38-126); Anion Gap 6 mmol/L; Blood Urea Nitrogen 9 mg/dL (7-17); Calcium 8.2 mg/dL (8.4-10.2); Carbon Dioxide 20 mmol/L (22-30); Chloride 108 mmol/L (98-107); Glucose 168 mg/dL (74-99); Magnesium 1.3 mg/dL (1.6-2.3); Non-African American GFR(CKD) 53 (>60 ml/min/1.73 sqM); Potassium 3.6 mmol/L (3.5-5.1); Sodium 134 mmol/L (137-145); Total Bilirubin 0.9 mg/dL (0.2-1.3); Total Protein 5.7 g/dL (6.3-8.2)
[2023-05-22 12:36] LABS: INR 1.2 (<1.2); Partial Thromboplastin Time 25.7 sec (22.0-30.0); Prothrombin Time 12.4 sec (10.0-12.5)
[2023-05-22 12:37] LABS: NT-Pro-B-Type Natriuretic Pept 14800 pg/mL
--- NOTE | 2023-05-22 13:02 | XR ---
EXAMINATION TYPE: XR chest 2V DATE OF EXAM: 05/22/2023 COMPARISON: 05/18/2023 HISTORY: 77 year-old female shortness of breath, difficulty breathing TECHNIQUE: AP and lateral views FINDINGS: ACF hardware. Left anterior chest wall pacemaker generator with right atrial and right ventricular le ads. Endovascular aortic valve replacement. Heart mildly enlarged. Atherosclerotic calcifications throughout the aorta. Perihilar and interstitia l densities have increased. Possible trace effusion on the lateral view. Otherwise, no consolidation. IMPRESSION: 1. Mild cardiomegaly and suspect developing mild pulmonary vascular congestion. 2. Possible trace effusions on the lateral view.
[2023-05-22] MEDS ORDERED: NALOXONE 0.4 MG/ML 1 ML VIAL IV PRN (13:16)
[2023-05-22] MEDS ORDERED: ACETAMINOPHEN TAB 325 MG TAB PO PRN (13:16)
[2023-05-22] MEDS: MAGNESIUM SULFATE-D5W PMX 1 GM in DEXTROSE/WATER 1 100ML.BAG IVPB ONE (14:07)
[2023-05-22] MEDS: FUROSEMIDE 10 MG/ML 2 ML VIAL IV STA (14:07)
[2023-05-22] MEDS: IPRATROPIUM-ALBUTEROL 3 ML NEB INHALATION STA (15:41)
[2023-05-22] MEDS ORDERED: NON FORMULARY DRUG (Ginkgo Biloba Leaf Extract [Ginkgo] 60 MG Tablet) PO SCH (21:00)
[2023-05-22] MEDS ORDERED: FUROSEMIDE 10 MG/ML 2 ML VIAL IV SCH (21:00)
[2023-05-22] MEDS: MONTELUKAST 10 MG TAB PO SCH (22:07)
[2023-05-22] MEDS: MULTIVITAMINS, THERA 1 EACH TAB PO SCH (22:07)
[2023-05-22] MEDS: ATORVASTATIN 20 MG TAB PO SCH (22:07)
[2023-05-22] MEDS: APIXABAN 5 MG TAB PO SCH (22:07)
[2023-05-22] MEDS: PANTOPRAZOLE 40 MG TABLET PO SCH (22:07)
[2023-05-22] MEDS: buPROPion SR 150 MG TABLET.ER PO SCH (22:07)
[2023-05-22] MEDS: amLODIPine 2.5 MG TAB PO SCH (22:07)
[2023-05-22] MEDS: FUROSEMIDE 10 MG/ML 4 ML VIAL IV SCH (23:40)
--- NOTE | 2023-05-23 02:37 | HP ---
HISTORY AND PHYSICAL CHIEF COMPLAINT: Shortness of breath. HISTORY OF PRESENT ILLNESS: This is a 77-year-old woman with a past medical history of multiple medical problems, was recently admitted with [id number]-elevation myocardial infarction, as well as CHF acute exacerbation. The patient is apparently not taking diuretics for some time. The patient with increased shortness of breath. The patient came to [facility]. Chest x-ray showed significant CHF and the patient . There is no history of fever rigors chills. PAST MEDICAL HISTORY: Reviewed include COPD, CAD, pulmonary embolism. Rest of the history and rest of the chart is also reviewed. HOME MEDICATIONS: Reviewed include doses and rest of medications reviewed. ALLERGIES: Keflex. FAMILY HISTORY: History of COPD. SOCIAL HISTORY: No history of smoke or alcohol intake. REVIEW OF SYSTEMS: A 14-point review is negative except as mentioned earlier. PHYSICAL EXAM: VITAL SIGNS: Pulse 79, blood pressure 140/76, respirations 20. HEENT: Conjunctivae normal. NECK: No jugular venous distention. LABORATORY DATA: Decreased 10. Rest of the labs are noted. ASSESSMENT: 1. Shortness of breath, possible CHF acute exacerbation, rule out pulmonary embolism, acute. 2. Anemia. 3. History of hyperlipidemia. 4. History of hypertension. 5. History of cardiac catheterization showing moderate coronary disease. 6. Ejection fraction 40%. 7. Multiple medical issues. RECOMMENDATIONS AND DISCUSSION: This 77-year-old woman presented with multiple complex medical issues, we will monitor the patient closely initiate IV Lasix, D-dimer, rule out CT angio of the chest if D- dimer is positive, otherwise cardiology consultation. Resume home medications. Prognosis guarded because of multiple complex medical conditions. See orders for further details. MMODL / IJN: [id number] / MTDD
--- NOTE | 2023-05-23 02:38 | P.CNPUL ---
History of Present Illness Consult date: 05/23/23 Requesting physician: Adriane Ryan Reason for consult: dyspnea Chief complaint: Shortness of breath History of present illness: I am seeing this patient in consultation today 05/23/2023 after she was admitted with progressively worsening shortness of breath over the 1-2 days since her recent hospital discharge. Patient is a 77-year-old white female with past medical history significant for COPD, pulmonary embolism anticoagulated on Eliquis, coronary artery disease with recent stent to the RCA, pacemaker, hypothyroidism, hypertension, hyperlipidemia, TAVR. Of note, the patient was just recently admitted in February, for acute non-ST elevation [place], subsequently undergoing PCI/stenting of the RCA. She again returned for a brief hospitalization 05/18/23 through 05/21/2023 for urinary tract infection. She returned to the emergency room less than 24 hours later with acute shortness of breath. She does admit occasional cough with clear sputum. Denies any fevers or purulent sputum. Her cough reportedly is not much different than normal. She has an occasional wheezing, but not currently. For her COPD, she uses a Ventolin inhaler as needed, and also takes a maintenance inhaler but unsure of which one. She denies any chest pain. Denies any heart palpitations, lightheadedness, or syncopal events. She does not weigh herself. Denies any lower extremity swelling. She is currently on room air. She just walked back from the bathroom. Minimally dyspneic. She also reports shortness of breath when attempting to lay flat. Chest x-ray on arrival was consistent with conge stive heart failure. Her NT proBNP was 14,800. Patient's D-dimer was also elevated at 1.06. She denies missing any doses of Eliquis. She has had 2 pulmonary embolism in the past. The patient's findings are more consistent with congestive heart failure. CBC on arrival: WBC count of 7.1, hemoglobin 10, hematocrit 30, platelets 169. Patient denies any blood loss in stool, dark stools, hematemesis, vaginal bleeding. BMP on arrival: Sodium 134, potassium 3.6, chloride 108, serum bicarb 20, BUN 9, creatinine 1.03, glucose 168. Troponin 0.032. Negative for influenza, RSV, COVID. Patient has already been started on diuretics and states she is voiding often. She denies any other urinary complaints. Vital signs are stable. Review of Systems REVIEW OF SYSTEMS: CONSTITUTIONAL: Denies any recent significant weight loss or weight gain, but does not weigh yourself. Denies any fever, fatigue, malaise. Denies night sweats. Denies sick contacts. EYES: Denies change in vision. EARS, NOSE, MOUTH, THROAT: Denies headaches, denies sore throat. CARDIOVASCULAR: Denies chest pain, palpitations or syncopal episodes. RESPIRATORY: Admits shortness of breath, orthopnea. GASTROINTESTINAL: Denies change in appetite, abdominal pain, nausea and vomiting, or diarrhea GENITOURINARY: Denies hematuria, denies infections. MUSKULOSKELETAL: Denies pain, denies swelling. INTEGUMENTARY: Denies rash, denies eczema. NEUROLOGICAL: Denies recent memory loss, no recent seizure activity. PSYCHIATRIC: Denies anxiety, denies depression. HEMATOLOGIC/LYMPHATIC: Denies anemia, denies enlarged lymph node Past Medical History Past Medical History: COPD, Hyperlipidemia, Hypertension, Pulmonary Embolus ([place]), Thyroid Disorder History of Any Multi-Drug Resistant Organisms: None Reported Past Surgical History: Cholecystectomy, Hysterectomy, Pacemaker Additional Past Surgical History / Comment(s): TAVR Heart valve replacement, thyroid surgery, wrist surgery, neck surgery, knee replacement x3. Past Anesthesia/Blood Transfusion Reactions: No Reported Reaction Type of Cardiac Device: Permanent Pacemaker Device Placement Date:: 08/18/20 Past Psychological History: No Psychological Hx Reported Smoking Status: Never smoker Past Alcohol Use History: Occasional Past Drug Use History: None Reported - Past Family History Father Family Medical History: COPD, Myocardial Infarction ([place]) Medications and Allergies Home Medications Medication Instructions Recorded Confirmed Type Apixaban [Eliquis] 5 mg PO BID 03/16/23 05/22/23 History Atorvastatin [Lipitor] 20 mg PO HS 03/16/23 05/22/23 History Calcium Carbonate [Calcium] 600 mg PO DAILY 03/16/23 05/22/23 History Cholecalciferol [Vitamin D3 (25 25 mcg PO DAILY 03/16/23 05/22/23 History Mcg = 1000 Iu)] Ginkgo Biloba [place] Extract [Ginkgo] 60 mg PO BID 03/16/23 05/22/23 History Levothyroxine Sodium [Synthroid] 68.5 mcg PO BENITEZ 03/16/23 05/22/23 History Levothyroxine Sodium [Synthroid] 137 mcg PO MOTUWETHFRSA 03/16/23 05/22/23 History Metoprolol Succinate (ER) [Toprol 100 mg PO DAILY 03/16/23 05/22/23 History XL] Montelukast [Singulair] 10 mg PO HS 03/16/23 05/22/23 History Multivit-Min/FA/Lycopen/Lutein 1 tab PO HS 03/16/23 05/22/23 History [Centrum Silver Tablet] amLODIPine [Norvasc] 2.5 mg PO HS 03/16/23 05/22/23 History buPROPion SR [Wellbutrin SR] 150 mg PO BID 03/16/23 05/22/23 History Losartan Potassium [Cozaar] 100 mg PO DAILY 05/18/23 05/22/23 History Omeprazole 20 mg PO BID 05/18/23 05/22/23 History Levofloxacin [Levaquin] 250 mg PO DIRECTED 05/22/23 05/22/23 History Nitroglycerin Sl Tabs [Nitrostat] 0.4 mg SL Q5M PRN 05/22/23 05/22/23 History Allergies Allergy/AdvReac Type Severity Reaction Status Date / Time cephalexin [From Keflex] Allergy Rash/Hives Verified 05/22/23 13:54 Sulfa (Sulfonamide Allergy Rash/Hives Verified 05/22/23 13:54 Antibiotics) Physical Exam Vitals: Vital Signs Temp Pulse Pulse Resp BP BP Pulse Ox 05/22/23 19:03 97.7 F 70 16 113/69 95 05/22/23 18:05 16 05/22/23 18:01 97.8 F 73 16 127/77 99 05/22/23 17:00 20 116/53 95 05/22/23 16:03 75 22 93 L 05/22/23 15:51 73 05/22/23 15:41 81 05/22/23 14:11 79 20 144/76 97 05/22/23 11:41 98.7 F 75 22 129/68 97 Intake and Output 05/22/23 05/22/23 05/23/23 14:59 22:59 06:59 Output Total 0 Balance 0 Output: Emesis 0 Other: Weight 104.326 kg 104.326 kg GENERAL EXAM: Alert, 77-year-old white female, morbidly obese, comfortable in no apparent distress. HEAD: Normocephalic and atraumatic EYES: Normal reaction of pupils, equal size. NOSE: Clear with pink turbinates. THROAT: No erythema or exudates. NECK: No masses, no JVD. CHEST: No chest wall deformity. LUNGS: Equal air entry with bibasilar inspiratory crackles. no wheeze, rhonchi or dullness. On room air. Mildly dyspneic with exertion, however, quickly recovers while resting. No conversational dyspnea or accessory muscle use. CVS: S1 and S2 normal with no audible murmur, regular rhythm. No extra heart sounds ABDOMEN: Obese abdomen, no hepatosplenomegaly, active bowel sounds, no guarding or rigidity. SPINE: No scoliosis or deformity SKIN: No rashes CENTRAL NERVOUS SYSTEM: No focal deficits, tone is normal in all 4 extremities. EXTREMITIES: There is nonpitting bilateral ankle edema. clubbing, or cyanosis. Peripheral pulses are intact. Results - Laboratory Findings CBC and BMP: 05/22/23 11:57 05/22/23 11:57 PT/INR, D-dimer PT 12.4 sec (10.0-12.5) 05/22/23 11:57 INR 1.2 (<1.2) H 05/22/23 11:57 D-Dimer 1.06 mg/L FEU (<0.60) H 05/22/23 17:58 Abnormal lab findings: Abnormal Labs 05/22/23 05/22/23 05/22/23 11:57 11:57 11:57 RBC 3.04 L Hgb 10.0 L Hct 30.0 L Lymphocytes # 0.7 L INR 1.2 H D-Dimer Sodium 134 L Chloride 108 H Carbon Dioxide 20 L Glucose 168 H Calcium 8.2 L Magnesium 1.3 L Total Protein 5.7 L Albumin 3.2 L 05/22/23 17:58 RBC Hgb Hct Lymphocytes # INR D-Dimer 1.06 H Sodium Chloride Carbon Dioxide Glucose Calcium Magnesium Total Protein Albumin - Diagnostic Findings Chest x-ray: image reviewed Assessment and Plan Assessment: Acute dyspnea, secondary to acute exacerbation of systolic congestive heart failure, chest x-ray on arrival shows mild cardiomegaly, pulmonary vascular congestion, interstitial edema, and possible trace bilateral pleural effusions. NT proBNP elevated at 14,800. Coronary artery disease, with recent history of PCI/stenting of the RCA 03/17/2023 Elevated D-dimer, symptoms are likely related to above, and patient has not reportedly missed any doses of Eliquis History of pulmonary embolism, anticoagulated on Eliquis Chronic obstructive pulmonary disease, appears stable on my examination Recent urinary tract infection Normocytic normochromic anemia, no overt signs of acute blood loss History of hypothyroidism History of hypertension History of hyperlipidemia History of aortic stenosis, status post TAVR Morbid obesity, with a BMI of 40.7 kg/m Never smoker, with significant secondhand exposure Plan: Patient's medications, labs, chest x-ray reviewed Patient is on room air Agree with diuresis, in the form of Lasix 40 mg, 3 times daily Eliquis has already been restarted Most recent echocardiogram noted. Cardiology is following Resume COPD maintenance medications including DuoNebs [id number] and Symbicort inhaler We will continue to follow I have personally seen and examined the patient, performed the documentation and the assessment and plan as written. Number of minutes spent on the visit:20 Time with Patient: Greater than 30
[2023-05-23] MEDS: LEVOTHYROXINE 137 MCG TAB PO SCH (06:19)
[2023-05-23] MEDS: ALBUTEROL NEBULIZED 2.5 MG/3 ML INHALATION SCH (08:25)
[2023-05-23] MEDS: SYMBICORT 80-4.5 MCG INHALER INHALATION SCH (08:27)
[2023-05-23 08:38] LABS: Basophils # (A) 0.03 X 10*3/uL (0.00-0.10); Basophils % (A) 0.5 %; Eosinophils # (A) 0 X 10*3/uL (0.04-0.35); Eosinophils % (A) 0 %; HGB 9.8 g/dL (12.0-15.0); Lymphocytes # (A) 1.28 X 10*3/uL (0.90-5.00); Lymphocytes % (A) 20.7 %; MCH 31.2 pg (27.0-32.0); MCHC 31.6 g/dL (32.0-37.0); MCV 98.7 FL (80.0-97.0); Mean Platelet Volume 11.5 FL (9.5-12.2); Monocytes % (A) 11.3 %; NRBC Per 100 WBC 0 X 10*3/uL (0.00-0.01); Neutrophils # (A) 4.14 X 10*3/uL (1.80-7.70); Neutrophils % (A) 67.2 %; Platelet Count 189 X 10*3/uL (140-440); RBC 3.14 X 10*6/uL (4.10-5.20); RDW 13.2 % (11.5-14.5); WBC 6.17 X 10*3/uL (4.50-10.00)
[2023-05-23 08:48] LABS: Chloride 97 mmol/L (96-109); Glucose 111 mg/dL (70-110); Potassium 4.3 mmol/L (3.5-5.5); Sodium 137 mmol/L (135-145)
[2023-05-23 08:49] LABS: Carbon Dioxide 25.8 mmol/L (21.6-31.8)
--- NOTE | 2023-05-23 09:22 | P.CRDCN ---
History of Present Illness Consult date: 05/23/23 Consult reason: congestive heart failure History of present illness: History of present illness: This is a 77-year-old female patient of Dr. Estrada with past medical history of aortic stenosis status post transcatheter aortic aortic valve replacement at [facility] [place] 2 years ago, history of bradycardia status post permanent pacemaker, hypertension, pulmonary embolism, COPD We have been asked to evaluate the patient for CHF. Patient had a recent hospitalization in February at which time she was diagnosed with a non-ST elevated myocardial infarction and underwent cardiac catheterization and stenting of the RCA. Patient was last seen in the office on 04/14/2023 with complaints of dyspnea on exertion. Patient also had a hospitalization through 05/20 at which time she was treated for acute kidney injury secondary to nausea and vomiting and patient was continued on same home medications. Patient now presents to the hospital due to difficulty in breathing which she states she has never had before. She states that she has not been on any recent diuretics. She is feeling better at the time of this evaluation. Patient was started on IV Lasix 40 mg every 8 hours. EKG ventricularly paced rhythm. Chest x-ray: Mild cardiomegaly suspect developing mild pulmonary vascular congestion. Possible trace effusions on the lateral view. WBC 6.1, hemoglobin 9.8, platelet count 189. D-dimer 1.06. Electrolytes normal. BUN 9, creatinine 1.2. Glucose 111. Influenza A, influenza B, RSV, COVID-19 not detected. proBNP 14,800. Troponin negative x 1. Magnesium 1.3 Home cardiac medications: Amlodipine 2.5 mg at bedtime, Eliquis 5 mg twice daily, atorvastatin 20 mg at bedtime, losartan 1 mg daily, Toprol-XL 100 mg daily, Nitrostat 0.4 mg as needed. According to office notes, patient is also to be on Plavix 75 mg daily and torsemide 20 mg daily Echocardiogram performed 03/16/2023 revealed EF 40%, moderate MR, bioprosthetic aortic valve in place with no significant aortic stenosis or regurgitation. No pericardial effusion. Cardiac catheterization performed by Dr. Alex Law on 03/16/2023 revealed focal 80-90% stenosis involving the mid RCA with area of plaque rupture. She subsequently underwent PCI of mid RCA with FOREST with Dr. Mckeon. Low-level treadmill exercise stress test performed in the office on 04/26/2023 revealed poor exercise tolerance. No symptoms typical of angina. Dysrhythmias in the form of occasional PVCs. None diagnostic electrocardiographic stress test secondary to inadequate chronotropic response. Review Of Systems: At the time of my exam: CONSTITUTIONAL: Denies fever or chills. HEENT: Denies blurred vision, vision changes, or eye pain. Denies hemoptysis CARDIOVASCULAR: Denies chest pain. Denies orthopnea. Denies PND. Denies palpitations RESPIRATORY: Denies shortness of breath. GASTROINTESTINAL: Denies abdominal pain. Denies nausea or vomiting. HEMATOLOGIC: Denies bleeding disorders. GENITOURINARY: Denies any blood in urine. SKIN: Denies pruitis. Denies rash. Physical examination: Gen: This is a 77-year-old female in no acute distress VS: reviewed HEENT: Head is atraumatic, normocephalic. Pupils equal, round. Sclerae is anicteric. NECK: Supple. No JVD. LUNGS: Diminished breath sounds bilaterally no intercostal retractions. HEART: Regular rate and rhythm. Ejection systolic murmur at the aortic area. ABDOMEN: Soft No tenderness. EXTREMITIES: No pedal edema. No calf tenderness. NEUROLOGICAL: Patient is awake, alert and oriented x3. Assessment: Acute exacerbation of systolic heart failure Coronary artery disease with previous PCI of the RCA on 03/16/2023 in the sett ing of a NSTEMI History of PE Hypertension Aortic stenosis status post transcatheter aortic valve replacement History of bradycardia status post permanent pacemaker Hypertension COPD Recent hospitalization for acute kidney injury secondary to nausea and vomiting Plan: Resume patient's home cardiac medications including Plavix which is not listed on her home medication list Obtain limited 2-D echocardiogram and Doppler study to assess cardiac function Continue patient on IV Lasix 40 mg every 8 hours Monitor ST[place], daily weights, electrolytes and renal function further recommendations to follow based upon clinical course Thank you kindly for this consultation. Nurse practitioner note has been reviewed, I agree with documented findings and plan of care. Patient was seen and examined. Past Medical History Past Medical History: COPD, Hyperlipidemia, Hypertension, Pulmonary Embolus (PE), Thyroid Disorder History of Any Multi-Drug Resistant Organisms: None Reported Past Surgical History: Cholecystectomy, Hysterectomy, Pacemaker Additional Past Surgical History / Comment(s): TAVR Heart valve replacement, thyroid surgery, wrist surgery, neck surgery, knee replacement x3. Past Anesthesia/Blood Transfusion Reactions: No Reported Reaction Type of Cardiac Device: Permanent Pacemaker Device Placement Date:: 08/18/20 Past Psychological History: No Psychological Hx Reported Smoking Status: Never smoker Past Alcohol Use History: Occasional Past Drug Use History: None Reported - Past Family History Father Family Medical History: COPD, Myocardial Infarction ([place]) Medications and Allergies Home Medications Medication Instructions Recorded Confirmed Type Apixaban [Eliquis] 5 mg PO BID 03/16/23 05/22/23 History Atorvastatin [Lipitor] 20 mg PO HS 03/16/23 05/22/23 History Calcium Carbonate [Calcium] 600 mg PO DAILY 03/16/23 05/22/23 History Cholecalciferol [Vitamin D3 (25 25 mcg PO DAILY 03/16/23 05/22/23 History Mcg = 1000 Iu)] Ginkgo Biloba [place] Extract [Ginkgo] 60 mg PO BID 03/16/23 05/22/23 History Levothyroxine Sodium [Synthroid] 68.5 mcg PO BENITEZ 03/16/23 05/22/23 History Levothyroxine Sodium [Synthroid] 137 mcg PO [id number] 03/16/23 05/22/23 History Metoprolol Succinate (ER) [Toprol 100 mg PO DAILY 03/16/23 05/22/23 History XL] Montelukast [Singulair] 10 mg PO HS 03/16/23 05/22/23 History Multivit-Min/FA/Lycopen/Lutein 1 tab PO HS 03/16/23 05/22/23 History [Centrum Silver Tablet] amLODIPine [Norvasc] 2.5 mg PO HS 03/16/23 05/22/23 History buPROPion SR [Wellbutrin SR] 150 mg PO BID 03/16/23 05/22/23 History Losartan Potassium [Cozaar] 100 mg PO DAILY 05/18/23 05/22/23 History Omeprazole 20 mg PO BID 05/18/23 05/22/23 History Levofloxacin [Levaquin] 250 mg PO DIRECTED 05/22/23 05/22/23 History Nitroglycerin Sl Tabs [Nitrostat] 0.4 mg SL Q5M PRN 05/22/23 05/22/23 History Allergies Allergy/AdvReac Type Severity Reaction Status Date / Time cephalexin [From Keflex] Allergy Rash/Hives Verified 05/22/23 13:54 Sulfa (Sulfonamide Allergy Rash/Hives Verified 05/22/23 13:54 Antibiotics) Physical Exam Vitals: Vital Signs Temp Pulse Pulse Resp BP BP Pulse Ox 05/23/23 07:00 97.9 F 73 15 124/80 96 05/23/23 02:00 97.8 F 64 16 119/73 97 05/22/23 19:03 97.7 F 70 16 113/69 95 05/22/23 18:05 16 05/22/23 18:01 97.8 F 73 16 127/77 99 05/22/23 17:00 20 116/53 95 05/22/23 16:03 75 22 93 L 05/22/23 15:51 73 05/22/23 15:41 81 05/22/23 14:11 79 20 144/76 97 05/22/23 11:41 98.7 F 75 22 129/68 97 Intake and Output 05/22/23 05/23/23 05/23/23 22:59 06:59 14:59 Output Total 0 Balance 0 Output: Emesis 0 Other: # Voids 2 Weight 104.326 kg 99.7 kg Results 05/23/23 06:03 05/23/23 06:03 Cardiac Enzymes 05/22/23 05/22/23 Range/Units 11:57 11:57 AST 24 (14-36) U/L Troponin I 0.032 (0.000-0.034) ng/mL Coagulation 05/22/23 Range/Units 11:57 PT 12.4 (10.0-12.5) sec APTT 25.7 (22.0-30.0) sec CBC 05/22/23 Range/Units 11:57 WBC 7.1 (3.8-10.6) k/uL RBC 3.04 L (3.80-5.40) m/uL Hgb 10.0 L (11.4-16.0) gm/dL Hct 30.0 L (34.0-46.0) % Plt Count 169 (150-450) k/uL Comprehensive Metabolic Panel 05/22/23 Range/Units 11:57 Sodium 134 L (137-145) mmol/L Potassium 3.6 (3.5-5.1) mmol/L Chloride 108 H (98-107) mmol/L Carbon Dioxide 20 L (22-30) mmol/L BUN 9 (7-17) mg/dL Creatinine 1.03 (0.52-1.04) mg/dL Glucose 168 H (74-99) mg/dL Calcium 8.2 L (8.4-10.2) mg/dL AST 24 (14-36) U/L ALT 17 (4-34) U/L Alkaline Phosphatase 97 (38-126) U/L Total Protein 5.7 L (6.3-8.2) g/dL Albumin 3.2 L (3.5-5.0) g/dL Current Medications Generic Name Dose Route Start Last Admin Trade Name Freq PRN Reason Stop Dose Admin Acetaminophen 650 mg 05/22/23 13:16 Acetaminophen Tab 325 Mg Tab PO Q6HR PRN Mild Pain or Fever > 100.5 Albuterol Sulfate 2.5 mg 05/23/23 08:00 Albuterol Nebulized 2.5 Mg/3 Ml INHALATION RT-QID CANDI Amlodipine Besylate 2.5 mg 05/22/23 21:00 05/22/23 22:07 Amlodipine 2.5 Mg Tab PO 2.5 mg HS CANDI Administration Apixaban 5 mg 05/22/23 21:00 05/22/23 22:07 Apixaban 5 Mg Tab PO 5 mg BID CANDI Administration Protocol Atorvastatin Calcium 20 mg 05/22/23 21:00 05/22/23 22:07 Atorvastatin 20 Mg Tab PO 20 mg HS CANDI Administration Budesonide/Formoterol Fumarate 2 puff 05/23/23 08:00 Symbicort 80-4.5 Mcg Inhaler INHALATION RT-BID CANDI Bupropion HCl 150 mg 05/22/23 21:00 05/22/23 22:07 Bupropion Sr 150 Mg Tablet.Er PO 150 mg BID CANDI Administration Calcium Carbonate/Glycine 500 mg 05/23/23 09:00 Calcium Carbonate 500 Mg Chewable PO DAILY CANDI Cholecalciferol 25 mcg 05/23/23 09:00 Cholecalciferol 25 Mcg (1000 Iu) Tablet PO DAILY CANDI Furosemide 40 mg 05/23/23 00:00 05/22/23 23:40 Furosemide 10 Mg/Ml 4 Ml Vial IV 40 mg Q8HR CANDI Administration Levothyroxine Sodium 137 mcg 05/23/23 06:30 05/23/23 06:19 Levothyroxine 137 Mcg Tab PO 137 mcg [id number] CANDI Administration Levothyroxine Sodium 68.5 mcg 05/28/23 06:30 Levothyroxine 137 Mcg Tab PO [email or web address] [facility] Losartan Potassium 100 mg 05/23/23 09:00 Losartan 50 Mg Tab PO DAILY [facility] Metoprolol Succinate 100 mg 05/23/23 09:00 Metoprolol Succinate (Er) 100 Mg Tab.Er.24h PO DAILY CANDI Montelukast Sodium 10 mg 05/22/23 21:00 05/22/23 22:07 Montelukast 10 Mg Tab PO 10 mg HS CANDI Administration Multivitamins 1 each 05/22/23 21:00 05/22/23 22:07 Multivitamins, Thera 1 Each Tab PO 1 each HS CANDI Administration Naloxone HCl 0.2 mg 05/22/23 13:16 Naloxone 0.4 Mg/Ml 1 Ml Vial IV Q2M PRN Opioid Reversal Pantoprazole Sodium 40 mg 05/22/23 21:00 05/22/23 22:07 Pantoprazole 40 Mg Tablet PO 40 mg BID CANDI Administration Intake and Output 05/22/23 05/23/23 05/23/23 22:59 06:59 14:59 Output Total 0 Balance 0 Output: Emesis 0 Other: # Voids 2 Weight 104.326 kg 99.7 kg 05/22/23 11:57 05/22/23 11:57
[2023-05-23] MEDS: CALCIUM CARBONATE 500 MG CHEWABLE PO SCH (11:06)
[2023-05-23] MEDS: CHOLECALCIFEROL 25 MCG (1000 IU) TABLET PO SCH (11:07)
[2023-05-23] MEDS: LOSARTAN 50 MG TAB PO SCH (11:07)
[2023-05-23] MEDS: METOPROLOL SUCCINATE (ER) 100 MG TAB.ER.24H PO SCH (11:08)
[2023-05-23] MEDS: CLOPIDOGREL 75 MG TAB PO SCH (11:59)
--- NOTE | 2023-05-23 12:11 | CA ---
Transthoracic Echo Report Name: Geetha Najera Age: 77 Gender: F : 1945 Exam Date: 05/23/2023 09:17 Exam Location: [facility] Ht (in): 63 Wt (lb): 219 Ordering Physician: Felicity Foss Attending/Referring Phys: [id number], [employer] Mónica Daniels RDCS Procedure CPT: Indications: LVF Cardiac Hx: Technical Quality: Fair Contrast 1: Total Dose (mL): Contrast 2: Total Dose (mL): MEASUREMENTS (Male / Female) Normal Values 2D ECHO LV Diastolic Diameter PLAX 4.3 cm 4.2 - 5.9 / 3.9 - 5.3 cm LV Systolic Diameter PLAX 3.5 cm IVS Diastolic Thickness 1.4 cm 0.6 - 1.0 / 0.6 - 0.9 cm LVPW Diastolic Thickness 1.3 cm 0.6 - 1.0 / 0.6 - 0.9 cm LV Relative Wall Thickness 0.6 DOPPLER TR Peak Velocity 312.3 cm/s TR Peak Gradient 39.0 mmHg Right Ventricular Systolic Press 44.0 mmHg FINDINGS Left Ventricle Moderately increased left ventricular wall thickness. Abnormal septal motion consistent with a right ventricle pacemaker. Hypokinetic inferior wall. Left ventricular ejection fraction is estimated at 30-35 %. Right Ventricle Mild pulmonary hypertension. Right Atrium Left Atrium Mitral Valve Aortic Valve Tricuspid Valve Pulmonic Valve Pericardium Loculated pericardial effusion. Aorta CONCLUSIONS Moderate to severe LV systolic dysfunction with an ejection fraction of 30-35% Small pericardial effusion noted Previewed by: Dr. Jeremias Law MD (Electronically Signed) Final Date: 23 May 2023 12:10
--- NOTE | 2023-05-23 12:31 | PN ---
PROGRESS NOTE DATE OF SERVICE: 05/23/2023 SUBJECTIVE: This is a 77-year-old woman who was admitted with shortness of breath, CHF acute exacerbation, being closely monitored. No chest pain, no palpitations, no fever. OBJECTIVE: VITAL SIGNS: Pulse 73, blood pressure 124/80, respirations 15. HEENT: Conjunctivae normal. NECK: No jugular venous distention. CARDIOVASCULAR: S1, S2. RESPIRATIONS: Few scattered rhonchi. ABDOMEN: Soft. NERVOUS SYSTEM: No focal deficits. LABORATORY DATA: D-dimer is noted. ASSESSMENT: 1. Shortness of breath with possible CHF acute exacerbation, rule out pulmonary embolism, acute. 2. Anemia. 3. History of hyperlipidemia. 4. History of hypertension. 5. History of cardiac catheterization showing moderate coronary artery disease. 6. Ejection fraction 40%. 7. Multiple medical issues. RECOMMENDATIONS: Recommended to continue current management, continue symptomatic treatment. Otherwise at this time I will recommend continue the diuretics and I would also order a CT angio of the chest and continue to monitor. Guarded prognosis. Further recommendations to follow. Echo has been ordered. Current renal functions are acceptable. MMODL / IJN: [id number] /
--- NOTE | 2023-05-23 14:06 | CT ---
Exam: CT Angiography of the Chest. Date: 05/23/2023. Comparison: None History: Chest pain. Technique: CT examination of the chest was performed following the intravenous administration of 80 m L of Isovue 300. CT dose lowering techniques were used, to include: automated exposure control, adjus tment for patient size, and/or use of iterative reconstruction. FINDINGS: Mediastinum and Juliana: There is no axillary, mediastinal or hilar lymphadenopathy. Pleural and Pericardial spaces: There are [id number] bilateral pleural effusions. Upper Abdomen: The visualized upper abdomen is unremarkable. Cardiovascular: There is moderate vascular calcification throughout the thoracic aorta without eviden ce of aneurysmal dilation. Aortic stent valve is noted. There are moderate to significant diffuse cor onary artery calcifications. There is moderate cardiomegaly. Pacemaker leads are seen within the righ t atrium and right ventricle. Pulmonary Artery: There are no filling defects in the pulmonary arteries. Lung Parenchyma and Airways: There is some mild atelectasis in the lower lobes bilaterally. There is no focal area of consolidation. Bones: Scattered degenerative changes are seen throughout the spine. There are no acute osseous abnor malities. IMPRESSION: 1. No evidence of pulmonary embolism. 2. No evidence of thoracic aortic aneurysm or dissection. 3. Pupjl-np-nsewhdbu bilateral pleural effusions. 4. Cardiomegaly with coronary artery calcifications.
--- NOTE | 2023-05-24 08:35 | P.PN ---
Subjective Progress Note Date: 05/24/23 Consult reason: congestive heart failure History of present illness: History of present illness: This is a 77-year-old female patient of Dr. Estrada with past medical history of aortic stenosis status post transcatheter aortic aortic valve replacement at [facility] 2 years ago, history of bradycardia status post permanent pacemaker, hypertension, pulmonary embolism, COPD We have been asked to evaluate the patient for CHF. Patient had a recent hospitalization in February at which time she was diagnosed with a non-ST elevated myocardial infarction and underwent cardiac catheterization and stenting of the RCA. Patient was last seen in the office on 04/14/2023 with complaints of dyspnea on exertion. Patient also had a hospitalization 05/20 at which time she was treated for acute kidney injury secondary to nausea and vomiting and patient was continued on same home medications. Patient now presents to the hospital due to difficulty in breathing which she states she has never had before. She states that she has not been on any recent diuretics. She is feeling better at the time of this evaluation. Patient was started on I V Lasix 40 mg every 8 hours. EKG ventricularly paced rhythm. Chest x-ray: Mild cardiomegaly suspect developing mild pulmonary vascular congestion. Possible trace effusions on the lateral view. WBC 6.1, hemoglobin 9.8, platelet count 189. D-dimer 1.06. Electrolytes normal. BUN 9, creatinine 1.2. Glucose 111. Influenza A, influenza B, RSV, COVID-19 not detected. proBNP 14,800. Troponin negative x 1. Magnesium 1.3 Home cardiac medications: Amlodipine 2.5 mg at bedtime, Eliquis 5 mg twice daily, atorvastatin 20 mg at bedtime, losartan 1 mg daily, Toprol-XL 100 mg daily, Nitrostat 0.4 mg as needed. According to office notes, patient is also to be on Plavix 75 mg daily and torsemide 20 mg daily Echocardiogram performed 03/16/2023 revealed EF 40%, moderate MR, bioprosthetic aortic valve in place with no significant aortic stenosis or regurgitation. No pericardial effusion. Cardiac catheterization performed by Dr. Alex Law on 03/16/2023 revealed focal 80-90% stenosis involving the mid RCA with area of plaque rupture. She subsequently underwent PCI of mid RCA with FOREST with Dr. Mckeon. Low-level treadmill exercise stress test performed in the office on 04/26/2023 revealed poor exercise tolerance. No symptoms typical of angina. Dysrhythmias in the form of occasional PVCs. None diagnostic electrocardiographic stress test secondary to inadequate chronotropic response. 05/23 Patient is seen this morning on the observation unit. She denies having any shortness of breath or chest pain. She states she only needs to get some strength. She has been maintained on IV Lasix 40 mg every 8 hours which we will transition to oral. Blood pressure 117/70, heart rate is in the 60s to 80s, pulse ox 90% on room air. Limited echocardiogram reveals moderate to severe LV systolic dysfunction with EF of 30 to 35%. Small pericardial effusion. CTA of the chest revealed no evidence of pulmonary embolism. No evidence of thoracic aortic aneurysm or dissection. Small to moderate bilateral pleural effusions. Cardiomegaly with coronary artery calcifications. Physical examination: Gen: This is a 77-year-old female in no acute distress VS: reviewed HEENT: Head is atraumatic, normocephalic. Pupils equal, round. Sclerae is anicteric. LUNGS: Diminished breath sounds bilaterally no intercostal retractions. HEART: Regular rate and rhythm. Ejection systolic murmur at the aortic area. EXTREMITIES: No pedal edema. No calf tenderness. NEUROLOGICAL: Patient is awake, alert and oriented x3. Assessment: Acute exacerbation of systolic heart failure Coronary artery disease with previous PCI of the RCA on 03/16/2023 in the setting of a NSTEMI History of PE Hypertension Aortic stenosis status post transcatheter aortic valve replacement History of bradycardia status post permanent pacemaker Hypertension COPD Recent hospitalization for acute kidney injury secondary to nausea and vomiting Plan: Continue patient's home cardiac medications including Plavix -prescription has been sent to her pharmacy for Plavix Transition IV Lasix to oral Patient is cleared from cardiology for discharge May follow-up with Dr. Estrada in 1 week. Nurse practitioner note has been reviewed, I agree with documented findings and plan of care. Patient was seen and examined. Objective - Vital Signs Vital signs: Vital Signs Temp 97.8 F 05/24/23 07:00 Pulse 68 05/24/23 07:00 Resp 15 05/24/23 07:00 BP 117/70 05/24/23 07:00 Pulse Ox 98 05/24/23 07:00 FiO2 Intake & Output 05/23/23 05/24/23 05/24/23 18:59 06:59 18:59 Weight 95.3 kg Other: # Voids 1 1 - Labs CBC & Chem 7: 05/23/23 06:03 05/23/23 06:03 Labs: Abnormal Lab Results - Last 24 Hours (Table) 05/23/23 05/23/23 Range/Units 06:03 06:03 RBC 3.14 L (4.10-5.20) X 10*6/uL Hgb 9.8 L (12.0-15.0) g/dL Hct 31.0 L (37.2-46.3) % MCV 98.7 H (80.0-97.0) FL MCHC 31.6 L (32.0-37.0) g/dL Eosinophils # 0 L (0.04-0.35) X 10*3/uL Anion Gap 14.20 H (4.00-12.00) mmol/L Est GFR (CKD-EPI) 47 L (>=60) BUN/Creatinine Ratio 7.50 L (12.00-20.00) Ratio Glucose 111 H (70-110) mg/dL
[2023-05-24] MEDS: FUROSEMIDE 40 MG TAB PO SCH (08:37)
[2023-05-24 11:33] LABS: Basophils # (A) 0.03 X 10*3/uL (0.00-0.10); Basophils % (A) 0.6 %; Eosinophils # (A) 0 X 10*3/uL (0.04-0.35); Eosinophils % (A) 0 %; HCT 33.1 % (37.2-46.3); HGB 10.5 g/dL (12.0-15.0); Lymphocytes # (A) 1.09 X 10*3/uL (0.90-5.00); Lymphocytes % (A) 20.8 %; MCH 30.7 pg (27.0-32.0); MCHC 31.7 g/dL (32.0-37.0); MCV 96.8 FL (80.0-97.0); Mean Platelet Volume 10.8 FL (9.5-12.2); Monocytes # (A) 0.71 X 10*3/uL (0.20-1.00); Monocytes % (A) 13.5 %; NRBC Per 100 WBC 0 X 10*3/uL (0.00-0.01); Neutrophils # (A) 3.37 X 10*3/uL (1.80-7.70); Neutrophils % (A) 64.3 %; Platelet Count 176 X 10*3/uL (140-440); RBC 3.42 X 10*6/uL (4.10-5.20); RDW 13.2 % (11.5-14.5); WBC 5.24 X 10*3/uL (4.50-10.00)
[2023-05-24 11:57] LABS: BUN/Creat Ratio 7.69 Ratio (12.00-20.00); Calcium 8.8 mg/dL (8.7-10.3); Carbon Dioxide 29.9 mmol/L (21.6-31.8); Chloride 95 mmol/L (96-109); Glucose 88 mg/dL (70-110); Potassium 3.1 mmol/L (3.5-5.5); Sodium 139 mmol/L (135-145)
--- NOTE | 2023-05-24 12:25 | PN ---
PROGRESS NOTE DATE OF SERVICE: 05/24/2023 SUBJECTIVE: This 77-year-old woman was admitted with CHF exacerbation, closely monitored. No chest pain, no palpitation. Chest CTA did not show any evidence of pulmonary embolism. OBJECTIVE: VITAL SIGNS: Pulse is 68, blood pressure 170/70, respirations 15. CHEST: Few scattered rhonchi. ABDOMEN: Soft. NERVOUS SYSTEM: Nonfocal. LABORATORY DATA: Reviewed. ASSESSMENT: 1. CHF acute exacerbation with acute on chronic systolic dysfunction, pulmonary embolism ruled out. 2. Anemia. 3. Hyperlipidemia. 4. Hypertension. 5. Multiple complex medical issues. RECOMMENDATIONS: Recommended to continue current medications, continue with Lasix. Increase ambulation. Repeat labs in the morning. Possible discharge in the next 24 hours. Adjust the bronchodilators. Further recommendations to follow. MMODL / IJN: [id number] /
--- NOTE | 2023-05-24 13:10 | P.PN ---
Subjective Progress Note Date: 05/24/23 I am seeing this patient in consultation today 05/23/2023 after she was admitted with progressively worsening shortness of breath over the 1-2 days since her recent hospital discharge. Patient is a 77-year-old white female with past medical history significant for COPD, pulmonary embolism anticoagulated on Eliquis, coronary artery disease with recent stent to the RCA, pacemaker, hypothyroidism, hypertension, hyperlipidemia, TAVR. Of note, the patient was just recently admitted in February, for acute non-ST elevation MT, subsequently undergoing PCI/stenting of the RCA. She again returned for a brief hospitalization 05/18/23 through 05/21/2023 for urinary tract infection. She returned to the emergency room less than 24 hours later with acute shortness of breath. She does admit occasional cough with clear sputum. Denies any fevers or purulent sputum. Her cough reportedly is not much different than normal. She has an occasional wheezing, but not currently. For her COPD, she uses a Ventolin inhaler as needed, and also takes a maintenance inhaler but unsure of which one. She denies any chest pain. Denies any heart palpitations, lightheadedness, or syncopal events. She does not weigh herself. Denies any lower extremity swelling. She is currently on room air. She just walked back from the bathroom. Minimally dyspneic. She also reports shortness of breath when attempting to lay flat. Chest x-ray on arrival was consistent with congestive heart failure. Her NT proBNP was 14,800. Patient's D-dimer was also elevated at 1.06. She denies missing any doses of Eliquis. She has had 2 pulmonary embolism in the past. The patient's findings are more consistent with congestive heart failure. CBC on arrival: WBC count of 7.1, hemoglobin 10, hematocrit 30, platelets 169. Patient denies any blood loss in stool, dark stools, hematemesis, vaginal bleeding. BMP on arrival: Sodium 134, potassium 3.6, chloride 108, serum bicarb 20, BUN 9, creatinine 1.03, glucose 168. Tro ponin 0.032. Negative for influenza, RSV, COVID. Patient has already been started on diuretics and states she is voiding often. She denies any other urinary complaints. Vital signs are stable. The patient is seen today May 24, 2023 in follow-up on the regular medical floor. She is currently sitting up in bed. Awake and alert in no acute distress. She is maintaining good O2 saturations in the upper 90s on room air. Afebrile. Hemodynamically stable. CT angiogram ruled out pulmonary embolism. No evidence of the thoracic aortic aneurysm or dissection. Small to moderate bilateral pleural effusions. Cardiomegaly with coronary artery calcifications. White count 5.2. Hemoglobin 10.5. Platelets 176. Sodium 139. Potassium 3.1. Bicarb 30. BUN 10. Creatinine 1.3. Glucose 88. She is continued on bronchodilators. Remains on oral diuretics. Anticoagulated with Eliquis. Echocardiogram revealed moderate to severe LV systolic dysfunction with ejection fraction of 30 to 35%. Small pericardial effusion. Objective - Vital Signs Vital signs: Vital Signs Temp 97.8 F 05/24/23 07:00 Pulse 72 05/24/23 12:47 Resp 15 05/24/23 08:17 BP 117/70 05/24/23 07:00 Pulse Ox 98 05/24/23 07:00 FiO2 Intake & Output 05/23/23 05/24/23 05/24/23 18:59 06:59 18:59 Weight 95.3 kg Other: Voiding Method Toilet # Voids 1 1 - Exam GENERAL EXAM: Alert, pleasant 77-year-old female, on room air, comfortable in no apparent distress. HEAD: Normocephalic. EYES: Normal reaction of pupils, equal size. NOSE: Clear with pink turbinates. THROAT: No erythema or exudates. NECK: No masses, no JVD. CHEST: No chest wall deformity. LUNGS: Equal air entry with crackles in the bilateral bases. CVS: S1 and S2 normal with no audible murmur, regular rhythm. ABDOMEN: No hepatosplenomegaly, normal bowel sounds, no guarding or rigidity. SPINE: No scoliosis or deformity SKIN: No rashes CENTRAL NERVOUS SYSTEM: No focal deficits, tone is normal in all 4 extremities. EXTREMITIES: There is no peripheral edema. No clubbing, no cyanosis. Peripheral pulses are intact. - Labs CBC & Chem 7: 05/24/23 06:51 05/24/23 06:51 Labs: Abnormal Lab Results - Last 24 Hours (Table) 05/24/23 05/24/23 Range/Units 06:51 06:51 RBC 3.42 L (4.10-5.20) X 10*6/uL Hgb 10.5 L (12.0-15.0) g/dL Hct 33.1 L (37.2-46.3) % MCHC 31.7 L (32.0-37.0) g/dL Eosinophils # 0 L (0.04-0.35) X 10*3/uL Potassium 3.1 L (3.5-5.5) mmol/L Chloride 95 L (96-109) mmol/L Anion Gap 14.10 H (4.00-12.00) mmol/L Est GFR (CKD-EPI) 43 L (>=60) BUN/Creatinine Ratio 7.69 L (12.00-20.00) Ratio Assessment and Plan Assessment: Acute dyspnea, secondary to acute exacerbation of systolic congestive heart failure, chest x-ray on arrival shows mild cardiomegaly, pulmonary vascular congestion, interstitial edema, and possible trace bilateral pleural effusions. NT proBNP elevated at 14,800. Echocardiogram revealed impaired left ventricular systolic function with ejection fraction 30 to 35%. Coronary artery disease, with recent history of PCI/stenting of the RCA 03/17/2023 Elevated D-dimer, symptoms are likely related to above, and patient has not reportedly missed any doses of Eliquis. CT angiogram ruled out pulmonary embolism History of pulmonary embolism, anticoagulated on Eliquis Chronic obstructive pulmonary disease, appears stable on my examination Recent urinary tract infection Normocytic normochromic anemia, no overt signs of acute blood loss History of hypothyroidism History of hypertension History of hyperlipidemia History of aortic stenosis, status post TAVR Morbid obesity, with a BMI of 40.7 kg/m Never smoker, with significant secondhand exposure Plan: The patient was seen and evaluated Echocardiogram, CT angiogram, labs and medications reviewed Remains stable and on room air Anticoagulated with Eliquis Remains on diuretics Increase activity as tolerated We will continue to follow I have personally seen and examined the patient, performed the documentation and the assessment and plan as written. Number of minutes spent on the visit: 10.
[2023-05-24] MEDS: POTASSIUM CHLORIDE ER 20 MEQ TAB.ER PO SCH (15:42)
[2023-05-25 08:50] LABS: Basophils # (A) 0.04 X 10*3/uL (0.00-0.10); Basophils % (A) 0.7 %; Eosinophils % (A) 1.7 %; HCT 34.3 % (37.2-46.3); Lymphocytes # (A) 1.43 X 10*3/uL (0.90-5.00); Lymphocytes % (A) 24.3 %; MCH 31.2 pg (27.0-32.0); MCHC 32.1 g/dL (32.0-37.0); MCV 97.2 FL (80.0-97.0); Mean Platelet Volume 11.4 FL (9.5-12.2); Monocytes # (A) 0.76 X 10*3/uL (0.20-1.00); Monocytes % (A) 12.9 %; NRBC Per 100 WBC 0 X 10*3/uL (0.00-0.01); Neutrophils # (A) 3.54 X 10*3/uL (1.80-7.70); Neutrophils % (A) 60.1 %; Platelet Count 201 X 10*3/uL (140-440); RBC 3.53 X 10*6/uL (4.10-5.20); RDW 13.2 % (11.5-14.5); WBC 5.89 X 10*3/uL (4.50-10.00)
[2023-05-25] MEDS: LOSARTAN 50 MG TAB PO SCH (08:53)
[2023-05-25 08:57] LABS: Blood Urea Nitrogen 10.4 mg/dL (9.0-27.0); Calcium 8.5 mg/dL (8.7-10.3); Carbon Dioxide 29.8 mmol/L (21.6-31.8); Chloride 97 mmol/L (96-109); Glucose 100 mg/dL (70-110); Potassium 3.9 mmol/L (3.5-5.5); Sodium 138 mmol/L (135-145)
--- NOTE | 2023-05-25 09:46 | P.PN ---
Subjective Progress Note Date: 05/25/23 Consult reason: congestive heart failure History of present illness: History of present illness: This is a 77-year-old female patient of Dr. Estrada with past medical history of aortic stenosis status post transcatheter aortic aortic valve replacement at [facility] 2 years ago, history of bradycardia status post permanent pacemaker, hypertension, pulmonary embolism, COPD We have been asked to evaluate the patient for CHF. Patient had a recent hospitalization in February at which time she was diagnosed with a non-ST elevated myocardial infarction and underwent cardiac catheterization and stenting of the RCA. Patient was last seen in the office on 04/14/2023 with complaints of dyspnea on exertion. Patient also had a hospitalization 05/20 at which time she was treated for acute kidney injury secondary to nausea and vomiting and patient was continued on same home medications. Patient now presents to the hospital due to difficulty in breathing which she states she has never had before. She states that she has not been on any recent diuretics. She is feeling better at the time of this evaluation. Patient was started on I V Lasix 40 mg every 8 hours. EKG ventricularly paced rhythm. Chest x-ray: Mild cardiomegaly suspect developing mild pulmonary vascular congestion. Possible trace effusions on the lateral view. WBC 6.1, hemoglobin 9.8, platelet count 189. D-dimer 1.06. Electrolytes normal. BUN 9, creatinine 1.2. Glucose 111. Influenza A, influenza B, RSV, COVID-19 not detected. proBNP 14,800. Troponin negative x 1. Magnesium 1.3 Home cardiac medications: Amlodipine 2.5 mg at bedtime, Eliquis 5 mg twice daily, atorvastatin 20 mg at bedtime, losartan 1 mg daily, Toprol-XL 100 mg daily, Nitrostat 0.4 mg as needed. According to office notes, patient is also to be on Plavix 75 mg daily and torsemide 20 mg daily Echocardiogram performed 03/16/2023 revealed EF 40%, moderate MR, bioprosthetic aortic valve in place with no significant aortic stenosis or regurgitation. No pericardial effusion. Cardiac catheterization performed by Dr. Alex Law on 03/16/2023 revealed focal 80-90% stenosis involving the mid RCA with area of plaque rupture. She subsequently underwent PCI of mid RCA with [facility] with Dr. Mckeon. Low-level treadmill exercise stress test performed in the office on 04/26/2023 revealed poor exercise tolerance. No symptoms typical of angina. Dysrhythmias in the form of occasional PVCs. None diagnostic electrocardiographic stress test secondary to inadequate chronotropic response. 05/23 Patient is seen this morning on the observation unit. She denies having any shortness of breath or chest pain. She states she only needs to get some strength. She has been maintained on IV Lasix 40 mg every 8 hours which we will transition to oral. Blood pressure 117/70, heart rate is in the 60s to 80s, pulse ox 90% on room air. Limited echocardiogram reveals moderate to severe LV systolic dysfunction with EF of 30 to 35%. Small pericardial effusion. CTA of the chest revealed no evidence of pulmonary embolism. No evidence of thoracic aortic aneurysm or dissection. Small to moderate bilateral pleural effusions. Cardiomegaly with coronary artery calcifications. 05/24 Patient denies any chest pain, no shortness of breath no lightheadedness or dizziness. Patient states that she is ready to go home today. Her blood pressure is on the soft side at 84/58, heart rate 76, pulse ox 95% on room air. Patient has been transition to oral Lasix as of yesterday. Physical examination: Gen: This is a 77-year-old female in no acute distress VS: reviewed HEENT: Head is atraumatic, normocephalic. Pupils equal, round. Sclerae is anicteric. LUNGS: Diminished breath sounds bilaterally no intercostal retractions. HEART: Regular rate and rhythm. Ejection systolic murmur at the aortic area. EXTREMITIES: No pedal edema. No calf tenderness. NEUROLOGICAL: Patient is awake, alert and oriented x3. Assessment: Acute exacerbation of systolic heart failure Coronary artery disease with previous PCI of the RCA on 03/16/2023 in the setting of a NSTEMI History of PE Hypertension Aortic stenosis status post transcatheter aortic valve replacement History of bradycardia status post permanent pacemaker Hypertension COPD Recent hospitalization for acute kidney injury secondary to nausea and vomiting Plan: Continue patient's home cardiac medications including Plavix -prescription has been sent to her pharmacy for Plavix Discontinue amlodipine and decrease losartan to 50 mg daily Patient is cleared from cardiology for discharge May follow-up with Dr. Estrada in 1 week. Nurse practitioner note has been reviewed, I agree with documented findings and plan of care. Patient was seen and examined. Objective - Vital Signs Vital signs: Vital Signs Temp 98.1 F 05/25/23 02:00 Pulse 76 05/25/23 05:52 Resp 16 05/25/23 02:00 BP 84/58 05/25/23 02:00 Pulse Ox 95 05/25/23 02:00 FiO2 Intake & Output 05/24/23 05/25/23 05/25/23 18:59 06:59 18:59 Intake Total 320 Balance 320 Weight 96.3 kg Intake: Oral 320 Other: Voiding Method Toilet Toilet # Voids 1 - Labs CBC & Chem 7: 05/25/23 05:40 05/25/23 05:40 Labs: Abnormal Lab Results - Last 24 Hours (Table) 05/24/23 05/24/23 Range/Units 06:51 06:51 RBC 3.42 L (4.10-5.20) X 10*6/uL Hgb 10.5 L (12.0-15.0) g/dL Hct 33.1 L (37.2-46.3) % MCHC 31.7 L (32.0-37.0) g/dL Eosinophils # 0 L (0.04-0.35) X 10*3/uL Potassium 3.1 L (3.5-5.5) mmol/L Chloride 95 L (96-109) mmol/L Anion Gap 14.10 H (4.00-12.00) mmol/L Est GFR (CKD-EPI) 43 L (>=60) BUN/Creatinine Ratio 7.69 L (12.00-20.00) Ratio
--- NOTE | 2023-05-25 13:46 | P.PN ---
Subjective Progress Note Date: 05/25/23 I am seeing this patient in consultation today 05/23/2023 after she was admitted with progressively worsening shortness of breath over the 1-2 days since her recent hospital discharge. Patient is a 77-year-old white female with past medical history significant for COPD, pulmonary embolism anticoagulated on Eliquis, coronary artery disease with recent stent to the RCA, pacemaker, hypothyroidism, hypertension, hyperlipidemia, TAVR. Of note, the patient was just recently admitted in February, for acute non-ST elevation MD, subsequently undergoing PCI/stenting of the RCA. She again returned for a brief hospitalization 05/18/23 through 05/21/2023 for urinary tract infection. She returned to the emergency room less than 24 hours later with acute shortness of breath. She does admit occasional cough with clear sputum. Denies any fevers or purulent sputum. Her cough reportedly is not much different than normal. She has an occasional wheezing, but not currently. For her COPD, she uses a Ventolin inhaler as needed, and also takes a maintenance inhaler but unsure of which one. She denies any chest pain. Denies any heart palpitations, lightheadedness, or syncopal events. She does not weigh herself. Denies any lower extremity swelling. She is currently on room air. She just walked back from the bathroom. Minimally dyspneic. She also reports shortness of breath when attempting to lay flat. Chest x-ray on arrival was consistent with congestive heart failure. Her NT proBNP was 14,800. Patient's D-dimer was also elevated at 1.06. She denies missing any doses of Eliquis. She has had 2 pulmonary embolism in the past. The patient's findings are more consistent with congestive heart failure. CBC on arrival: WBC count of 7.1, hemoglobin 10, hematocrit 30, platelets 169. Patient denies any blood loss in stool, dark stools, hematemesis, vaginal bleeding. BMP on arrival: Sodium 134, potassium 3.6, chloride 108, serum bicarb 20, BUN 9, creatinine 1.03, glucose 168. Tro ponin 0.032. Negative for influenza, RSV, COVID. Patient has already been started on diuretics and states she is voiding often. She denies any other urinary complaints. Vital signs are stable. The patient is seen today May 24, 2023 in follow-up on the regular medical floor. She is currently sitting up in bed. Awake and alert in no acute distress. She is maintaining good O2 saturations in the upper 90s on room air. Afebrile. Hemodynamically stable. CT angiogram ruled out pulmonary embolism. No evidence of the thoracic aortic aneurysm or dissection. Small to moderate bilateral pleural effusions. Cardiomegaly with coronary artery calcifications. White count 5.2. Hemoglobin 10.5. Platelets 176. Sodium 139. Potassium 3.1. Bicarb 30. BUN 10. Creatinine 1.3. Glucose 88. She is continued on bronchodilators. Remains on oral diuretics. Anticoagulated with Eliquis. Echocardiogram revealed moderate to severe LV systolic dysfunction with ejection fraction of 30 to 35%. Small pericardial effusion. The patient is seen today May 25, 2023 in follow-up on the regular medical floor. She is currently awake and alert in no acute distress. Resting comfortably in bed. Maintaining good O2 saturations in the 90s on room air. She has been afebrile. Hemodynamically stable. White count 5.8. Hemoglobin 11.0. Platelets 201. Sodium 138. Potassium 3.9. Bicarb 30. BUN 10. Creatinine 1.3. Glucose 100. She remains on bronchodilators. Remains on oral diuretics. Anticoagulated with Eliquis. Objective - Vital Signs Vital signs: Vital Signs Temp 98.1 F 05/25/23 07:15 Pulse 124 H 05/25/23 13:13 Resp 17 05/25/23 08:53 BP 111/73 05/25/23 07:15 Pulse Ox 96 05/25/23 07:15 FiO2 Intake & Output 05/24/23 05/25/23 05/25/23 18:59 06:59 18:59 Intake Total 320 120 Balance 320 120 Weight 96.3 kg Intake: Oral 320 120 Other: Voiding Method Toilet Toilet Toilet # Voids 1 - Exam GENERAL EXAM: Alert, 77-year-old female, on room air, sitting up in bed, comfortable in no apparent distress. HEAD: Normocephalic. EYES: Normal reaction of pupils, equal size. NOSE: Clear with pink turbinates. THROAT: No erythema or exudates. NECK: No masses, no JVD. CHEST: No chest wall deformity. LUNGS: Equal air entry with crackles in the bilateral bases. CVS: S1 and S2 normal with no audible murmur, regular rhythm. ABDOMEN: No hepatosplenomegaly, normal bowel sounds, no guarding or rigidity. SPINE: No scoliosis or deformity SKIN: No rashes CENTRAL NERVOUS SYSTEM: No focal deficits, tone is normal in all 4 extremities. EXTREMITIES: There is no peripheral edema. No clubbing, no cyanosis. Peripheral pulses are intact. - Labs CBC & Chem 7: 05/25/23 05:40 05/25/23 05:40 Labs: Abnormal Lab Results - Last 24 Hours (Table) 05/25/23 05/25/23 Range/Units 05:40 05:40 RBC 3.53 L (4.10-5.20) X 10*6/uL Hgb 11.0 L (12.0-15.0) g/dL Hct 34.3 L (37.2-46.3) % MCV 97.2 H (80.0-97.0) FL Est GFR (CKD-EPI) 43 L (>=60) BUN/Creatinine Ratio 8.00 L (12.00-20.00) Ratio Calcium 8.5 L (8.7-10.3) mg/dL Assessment and Plan Assessment: Acute dyspnea, secondary to acute exacerbation of systolic congestive heart failure, chest x-ray on arrival shows mild cardiomegaly, pulmonary vascular congestion, interstitial edema, and possible trace bilateral pleural effusions. NT proBNP elevated at 14,800. Echocardiogram revealed impaired left ventricular systolic function with ejection fraction 30 to 35%. Coronary artery disease, with recent history of PCI/stenting of the RCA 03/17/2023 Elevated D-dimer, symptoms are likely related to above, and patient has not reportedly missed any doses of Eliquis. CT angiogram ruled out pulmonary embolism History of pulmonary embolism, anticoagulated on Eliquis Chronic obstructive pulmonary disease, appears stable on my examination Recent urinary tract infection Normocytic normochromic anemia, no overt signs of acute blood loss History of hypothyroidism History of hypertension History of hyperlipidemia History of aortic stenosis, status post TAVR Morbid obesity, with a BMI of 40.7 kg/m Never smoker, with significant secondhand exposure Plan: The patient was seen and evaluated Labs and medications reviewed Remains stable and on room air Remains on diuretics Cleared for discharge from the pulmonary standpoint Follow-up in our office in 1 week I have personally seen and examined the patient, performed the documentation and the assessment and plan as written. Number of minutes spent on the visit: 10.
[2023-05-25] MEDS: DOCUSATE 100 MG CAP PO PRN (20:55)
--- NOTE | 2023-05-26 04:45 | P.PN ---
Subjective Progress Note Date: 05/25/23 This is a pleasant 77-year-old female who was recently admitted with increased shortness of breath with CHF exacerbation being closely monitored. Cardiology and pulmonary following. And was scheduled for discharge although noted to have heart rates in the 110s/120s with history of permanent pacemaker and interrogation center was contacted to evaluate. Per correspondence representative the device needs adjustments which can only be done by a specific person who is unable to come here until tomorrow morning. Patient will be monitored overnight on continued telemetry monitoring with discharge planning in 24 hours. Review of systems: Constitutional: No reports of fatigue, fever, or chills Cardiovascular: No reports of chest pain or palpitations Respiratory: No reports of worsening shortness of breath or cough GI: No reports of nausea, no reports of vomiting, no diarrhea : No reports of dysuria or retention Neurovascular: No reports of generalized weakness All medications have been reviewed PHYSICAL EXAMINATION: GENERAL: The patient is alert and oriented x4, Well developed, well nourished. Obese HEENT: Pupils are round and equally reacting to light. EOMI. no scleral icterus. No conjunctival pallor. Normocephalic, atraumatic. No pharyngeal erythema. No thyromegaly. CARDIOVASCULAR: S1 and S2 muffled PULMONARY: diminished breath sounds bilaterally with no wheezing or rhonchi noted. ABDOMEN: soft. Nontender on exam. obese. non-distended, normoactive bowel sounds. No palpable organomegaly. MUSCULOSKELETAL: No joint swelling or deformity. EXTREMITIES: No cyanosis, clubbing, or pedal edema. NEUROLOGICAL: Gross neurological examination did not reveal any focal deficits. SKIN: No rashes. Assessment: Congestive heart failure acute exacerbation with acute on chronic systolic dy sfunction History of anemia History of COPD, not in exacerbation Hyperlipidemia Hypertension Obesity with a BMI of 37.6 History of PE History of TAVR valve replacement and permanent pacemaker GI prophylaxis DVT prophylaxis Full code Plan: Recommend to continue with current medications and management with cardiology and pulmonary following. Pulmonary has cleared the patient for discharge if stable per cardiology continue telemetry monitoring. Patient with permanent pacemaker awaiting interrogation and correspondence representative to adjust some settings prior to discharge as patient's heart rate was remaining in the 110s to 120s at times Patient was scheduled for discharge today and has been cleared by consultations with adjustments to medications made Patient to be discharged after evaluated by pacemaker correspondence representative The impression and plan of care has been dictated by Temi Reed, nurse practitioner as directed. Dr. Luz Elena MD I have performed a history and examination and MDM of this patient, discussed the same with the dictator, and agree with the dictator's assessment and plan as written ,documented as a scribe. Based on total visit time, I have performed more than 50% of the visit. Any additional findings or plans will be noted. Objective - Vital Signs Vital signs: Vital Signs Temp 98.2 F 05/25/23 19:51 Pulse 114 H 05/25/23 20:19 Resp 16 05/25/23 19:51 BP 91/56 05/25/23 19:51 Pulse Ox 100 05/25/23 19:51 FiO2 Intake & Output 05/25/23 05/25/23 05/26/23 06:59 18:59 06:59 Intake Total 238 Balance 238 Weight 96.3 kg Intake: Oral 238 Other: Voiding Method Toilet Toilet # Voids 1 1 - Labs CBC & Chem 7: 05/25/23 05:40 05/25/23 05:40 Labs: Abnormal Lab Results - Last 24 Hours (Table) 05/25/23 05/25/23 Range/Units 05:40 05:40 RBC 3.53 L (4.10-5.20) X 10*6/uL Hgb 11.0 L (12.0-15.0) g/dL Hct 34.3 L (37.2-46.3) % MCV 97.2 H (80.0-97.0) FL Est GFR (CKD-EPI) 43 L (>=60) BUN/Creatinine Ratio 8.00 L (12.00-20.00) Ratio Calcium 8.5 L (8.7-10.3) mg/dL
[2023-05-26 08:20] VITALS: BP 108/73; RESP 17; TEMP 98.6
[2023-05-26 09:32] VITALS: PULSE 70
--- NOTE | 2023-05-26 10:56 | P.PN ---
Subjective Progress Note Date: 05/26/23 Consult reason: congestive heart failure History of present illness: History of present illness: This is a 77-year-old female patient of Dr. Estrada with past medical history of aortic stenosis status post transcatheter aortic aortic valve replacement at [facility] 2 years ago, history of bradycardia status post permanent pacemaker, hypertension, pulmonary embolism, COPD We have been asked to evaluate the patient for CHF. Patient had a recent hospitalization in February at which time she was diagnosed with a non-ST elevated myocardial infarction and underwent cardiac catheterization and stenting of the RCA. Patient was last seen in the office on 04/14/2023 with complaints of dyspnea on exertion. Patient also had a hospitalization 05/20 at which time she was treated for acute kidney injury secondary to nausea and vomiting and patient was continued on same home medications. Patient now presents to the hospital due to difficulty in breathing which she states she has never had before. She states that she has not been on any recent diuretics. She is feeling better at the time of this evaluation. Patient was started on I V Lasix 40 mg every 8 hours. EKG ventricularly paced rhythm. Chest x-ray: Mild cardiomegaly suspect developing mild pulmonary vascular congestion. Possible trace effusions on the lateral view. WBC 6.1, hemoglobin 9.8, platelet count 189. D-dimer 1.06. Electrolytes normal. BUN 9, creatinine 1.2. Glucose 111. Influenza A, influenza B, RSV, COVID-19 not detected. proBNP 14,800. Troponin negative x 1. Magnesium 1.3 Home cardiac medications: Amlodipine 2.5 mg at bedtime, Eliquis 5 mg twice daily, atorvastatin 20 mg at bedtime, losartan 1 mg daily, Toprol-XL 100 mg daily, Nitrostat 0.4 mg as needed. According to office notes, patient is also to be on Plavix 75 mg daily and torsemide 20 mg daily Echocardiogram performed 03/16/2023 revealed EF 40%, moderate MR, bioprosthetic aortic valve in place with no significant aortic stenosis or regurgitation. No pericardial effusion. Cardiac catheterization performed by Dr. Alex Law on 03/16/2023 revealed focal 80-90% stenosis involving the mid RCA with area of plaque rupture. She subsequently underwent PCI of mid RCA with [facility] with Dr. Mckeon. Low-level treadmill exercise stress test performed in the office on 04/26/2023 revealed poor exercise tolerance. No symptoms typical of angina. Dysrhythmias in the form of occasional PVCs. None diagnostic electrocardiographic stress test secondary to inadequate chronotropic response. 05/23 Patient is seen this morning on the observation unit. She denies having any shortness of breath or chest pain. She states she only needs to get some strength. She has been maintained on IV Lasix 40 mg every 8 hours which we will transition to oral. Blood pressure 117/70, heart rate is in the 60s to 80s, pulse ox 90% on room air. Limited echocardiogram reveals moderate to severe LV systolic dysfunction with EF of 30 to 35%. Small pericardial effusion. CTA of the chest revealed no evidence of pulmonary embolism. No evidence of thoracic aortic aneurysm or dissection. Small to moderate bilateral pleural effusions. Cardiomegaly with coronary artery calcifications. 05/24 Patient denies any chest pain, no shortness of breath no lightheadedness or dizziness. Patient states that she is ready to go home today. Her blood pressure is on the soft side at 84/58, heart rate 76, pulse ox 95% on room air. Patient has been transition to oral Lasix as of yesterday. 05/25 Yesterday afternoon, telemetry revealed a paced rhythm running in the 120s. Device rep is here adjusting settings on patient's pacemaker. Patient is ambulating without symptoms. Blood pressure 108/73, heart rate 70. Physical examination: Gen: This is a 77-year-old female in no acute distress VS: reviewed HEENT: Head is atraumatic, normocephalic. Pupils equal, round. Sclerae is anicteric. LUNGS: Diminished breath sounds bilaterally no intercostal retractions. HEART: Regular rate and rhythm. Ejection systolic murmur at the aortic area. EXTREMITIES: No pedal edema. No calf tenderness. NEUROLOGICAL: Patient is awake, alert and oriented x3. Assessment: Acute exacerbation of systolic heart failure Pacemaker mediated tachycardia Coronary artery disease with previous PCI of the RCA on 03/16/2023 in the setting of a NSTEMI History of PE Hypertension Aortic stenosis status post transcatheter aortic valve replacement History of bradycardia status post permanent pacemaker Hypertension COPD Recent hospitalization for acute kidney injury secondary to nausea and vomiting Plan: Continue patient's current cardiac medications Patient is cleared from cardiology for discharge and may follow-up with Dr. Estrada in 1 week. Nurse practitioner note has been reviewed, I agree with documented findings and plan of care. Patient was seen and examined. Objective - Vital Signs Vital signs: Vital Signs Temp 98.6 F 05/26/23 07:00 Pulse 120 H 05/26/23 07:00 Resp 17 05/26/23 07:00 BP 108/73 05/26/23 07:00 Pulse Ox 97 05/26/23 07:00 FiO2 Intake & Output 05/25/23 05/26/23 05/26/23 18:59 06:59 18:59 Intake Total 238 Balance 238 Weight 96.1 kg Intake: Oral 238 Other: Voiding Method Toilet Toilet # Voids 1 2 - Labs CBC & Chem 7: 05/25/23 05:40 05/25/23 05:40 Labs: Abnormal Lab Results - Last 24 Hours (Table) 05/25/23 05/25/23 Range/Units 05:40 05:40 RBC 3.53 L (4.10-5.20) X 10*6/uL Hgb 11.0 L (12.0-15.0) g/dL Hct 34.3 L (37.2-46.3) % MCV 97.2 H (80.0-97.0) FL Est GFR (CKD-EPI) 43 L (>=60) BUN/Creatinine Ratio 8.00 L (12.00-20.00) Ratio Calcium 8.5 L (8.7-10.3) mg/dL
--- NOTE | 2023-05-26 11:33 | P.PN ---
Subjective Progress Note Date: 05/26/23 I am seeing this patient in consultation today 05/23/2023 after she was admitted with progressively worsening shortness of breath over the 1-2 days since her recent hospital discharge. Patient is a 77-year-old white female with past medical history significant for COPD, pulmonary embolism anticoagulated on Eliquis, coronary artery disease with recent stent to the RCA, pacemaker, hypothyroidism, hypertension, hyperlipidemia, TAVR. Of note, the patient was just recently admitted in February, for acute non-ST elevation [place], subsequently undergoing PCI/stenting of the RCA. She again returned for a brief hospitalization 05/18/23 through 05/21/2023 for urinary tract infection. She returned to the emergency room less than 24 hours later with acute shortness of breath. She does admit occasional cough with clear sputum. Denies any fevers or purulent sputum. Her cough reportedly is not much different than normal. She has an occasional wheezing, but not currently. For her COPD, she uses a Ventolin inhaler as needed, and also takes a maintenance inhaler but unsure of which one. She denies any chest pain. Denies any heart palpitations, lightheadedness, or syncopal events. She does not weigh herself. Denies any lower extremity swelling. She is currently on room air. She just walked back from the bathroom. Minimally dyspneic. She also reports shortness of breath when attempting to lay flat. Chest x-ray on arrival was consistent with congestive heart failure. Her NT proBNP was 14,800. Patient's D-dimer was also elevated at 1.06. She denies missing any doses of Eliquis. She has had 2 pulmonary embolism in the past. The patient's findings are more consistent with congestive heart failure. CBC on arrival: WBC count of 7.1, hemoglobin 10, hematocrit 30, platelets 169. Patient denies any blood loss in stool, dark stools, hematemesis, vaginal bleeding. BMP on arrival: Sodium 134, potassium 3.6, chloride 108, serum bicarb 20, BUN 9, creatinine 1.03, glucose 168. Tro ponin 0.032. Negative for influenza, RSV, COVID. Patient has already been started on diuretics and states she is voiding often. She denies any other urinary complaints. Vital signs are stable. The patient is seen today May 24, 2023 in follow-up on the regular medical floor. She is currently sitting up in bed. Awake and alert in no acute distress. She is maintaining good O2 saturations in the upper 90s on room air. Afebrile. Hemodynamically stable. CT angiogram ruled out pulmonary embolism. No evidence of the thoracic aortic aneurysm or dissection. Small to moderate bilateral pleural effusions. Cardiomegaly with coronary artery calcifications. White count 5.2. Hemoglobin 10.5. Platelets 176. Sodium 139. Potassium 3.1. Bicarb 30. BUN 10. Creatinine 1.3. Glucose 88. She is continued on bronchodilators. Remains on oral diuretics. Anticoagulated with Eliquis. Echocardiogram revealed moderate to severe LV systolic dysfunction with ejection fraction of 30 to 35%. Small pericardial effusion. The patient is seen today May 25, 2023 in follow-up on the regular medical floor. She is currently awake and alert in no acute distress. Resting comfortably in bed. Maintaining good O2 saturations in the 90s on room air. She has been afebrile. Hemodynamically stable. White count 5.8. Hemoglobin 11.0. Platelets 201. Sodium 138. Potassium 3.9. Bicarb 30. BUN 10. Creatinine 1.3. Glucose 100. She remains on bronchodilators. Remains on oral diuretics. Anticoagulated with Eliquis. The patient is seen today May 26, 2023 in follow-up on the regular medical floor. She is sitting up in bed. Awake and alert in no acute distress. Maintaining O2 saturations in the 90s on room air. No worsening shortness of breath, cough or congestion. No chest pain or palpitations. Pacemaker being interrogated currently by the pacemaker leather goods sales representative. She remains on Symbicort and albuterol. Continued on Singulair. Remains on oral diuretics. Anticoagulated with Eliquis. No new labs today. Objective - Vital Signs Vital signs: Vital Signs Temp 98.6 F 05/26/23 07:00 Pulse 70 05/26/23 08:58 Resp 17 05/26/23 07:00 BP 108/73 05/26/23 07:00 Pulse Ox 97 05/26/23 07:00 FiO2 Intake & Output 05/25/23 05/26/23 05/26/23 18:59 06:59 18:59 Intake Total 238 236 Balance 238 236 Weight 96.1 kg Intake: Oral 238 236 Other: Voiding Method Toilet Toilet Toilet # Voids 1 2 - Exam GENERAL EXAM: Alert, 77-year-old female, on room air, comfortable in no apparent distress. HEAD: Normocephalic. EYES: Normal reaction of pupils, equal size. NOSE: Clear with pink turbinates. THROAT: No erythema or exudates. NECK: No masses, no JVD. CHEST: No chest wall deformity. LUNGS: Equal air entry with faint crackles in the bilateral bases. CVS: S1 and S2 normal with no audible murmur, regular rhythm. ABDOMEN: No hepatosplenomegaly, normal bowel sounds, no guarding or rigidity. SPINE: No scoliosis or deformity SKIN: No rashes CENTRAL NERVOUS SYSTEM: No focal deficits, tone is normal in all 4 extremities. EXTREMITIES: There is no peripheral edema. No clubbing, no cyanosis. Peripheral pulses are intact. - Labs CBC & Chem 7: 05/25/23 05:40 05/25/23 05:40 Assessment and Plan Assessment: Acute dyspnea, secondary to acute exacerbation of systolic congestive heart failure, chest x-ray on arrival shows mild cardiomegaly, pulmonary vascular congestion, interstitial edema, and possible trace bilateral pleural effusions. NT proBNP elevated at 14,800. Echocardiogram revealed impaired left ventricular systolic function with ejection fraction 30 to 35%. Pacemaker mediated tachycardia, interrogated and adjustments made per device leather goods sales representative today Coronary artery disease, with recent history of PCI/stenting of the RCA 03/17/2023 Elevated D-dimer, symptoms are likely related to above, and patient has not rep ortedly missed any doses of Eliquis. CT angiogram ruled out pulmonary embolism History of pulmonary embolism, anticoagulated on Eliquis Chronic obstructive pulmonary disease, appears stable Recent urinary tract infection Normocytic normochromic anemia, no overt signs of acute blood loss History of hypothyroidism History of hypertension History of hyperlipidemia History of aortic stenosis, status post TAVR Morbid obesity, with a BMI of 40.7 kg/m Never smoker, with significant secondhand exposure Plan: The patient was seen and evaluated Medications reviewed Remains stable and on room air Pacemaker leather goods sales representative made adjustments to device today Cleared for discharge from the pulmonary standpoint Follow-up in our office in 1 week This patient was seen independently by the pulmonary nurse practitioner addressing pulmonary issues I have personally seen and examined the patient, performed the documentation and the assessment and plan as written. Number of minutes spent on the visit: 24.
[2023-05-28] MEDS ORDERED: LEVOTHYROXINE 137 MCG TAB PO SCH (06:30)
--- NOTE | 2023-05-30 05:55 | P.DS ---
Providers Date of admission: 05/22/23 13:16 Expected date of discharge: 05/25/23 Attending physician: Kerwin Miranda MD Consults: 05/22/23 15:34 Consult Physician Routine Consulting Provider: Drake Chatterjee Consult Reason/Comments: sob Do you want consulting provider notified?: Yes Consult Physician Routine Consulting Provider: Fernando Woodson Consult Reason/Comments: chf Do you want consulting provider notified?: Yes Primary care physician: Physician Nonstaff Hospital Course: Final diagnosis Congestive heart failure acute exacerbation with acute on chronic systolic dysfu nction History of anemia History of COPD, not in exacerbation Hyperlipidemia Hypertension Obesity with a BMI of 37.6 History of PE History of TAVR valve replacement and permanent pacemaker GI prophylaxis DVT prophylaxis Full code Discharge disposition Patient is being discharged in a stable condition with guarded prognosis to home. Patient will follow-up with her pcp in the outpatient setting upon discharge. Patient is to continue with current medications and close outpatient follow-up with cardiology and pulmonary as scheduled. Total time taken is greater than 35 minutes. Hospital course This is a 77-year-old female who was recently admitted with increasing shortness of breath with acute on chronic CHF exacerbation with systolic dysfunction. Cardiology following with adjustments to medications being made and also evaluated by rep for interrogated pacemaker as patient was having heart rates in the 120s. Device required reprogramming by rep prior to discharge. Patient has been cleared for discharge by pulmonary and cardiology recommending close outpatient follow-up. Please refer to other consultation notes for further HPI. Patient reports to feeling well and would like to go home. Currently no reports of chest pain, shortness of breath, or palpitations. Patient is afebrile. No reports of nausea or vomiting and patient is tolerating diet. Patient will be discharged home today. Physical exam: Gen: This is a 77-year-old female who is awake, alert and oriented x 3, well- developed, well-nourished, obese HEENT: Head is atraumatic, normocephalic. Pupils equal, round. Sclerae is anicteric. NECK: Supple. No JVD. No lymphadenopathy. No thyromegaly. LUNGS: Diminished breath sounds bilaterally otherwise clear to auscultation. No wheezes or rhonchi. No intercostal retractions. HEART: S1, S2 are muffled ABDOMEN: Soft. Obese. Bowel sounds are present. No masses. No tenderness. EXTREMITIES: No pedal edema. No calf tenderness. Generalized lower extremity edema noted non-pitting bilaterally NEUROLOGICAL: Patient is awake, alert and oriented x3. Cranial nerves 2 through 12 are grossly intact. Please refer to medication reconciliation sheet for a list of medications. The impression and plan of care has been dictated by Temi Reed, Nurse Practitioner as directed. Dr. Luz Elena MD I have performed a history and examination and MDM of this patient, discussed the same with the dictator, and agree with the dictator's assessment and plan as written ,documented as a scribe. Based on total visit time, I have performed more than 50% of the visit. Patient Condition at Discharge: Stable Plan - Discharge Summary Discharge Rx Participant: No New Discharge Prescriptions: New Clopidogrel [Plavix] 75 mg PO DAILY #90 tablet Acetaminophen Tab [Tylenol] 650 mg PO Q6HR PRN tab PRN Reason: Mild Pain Or Fever > 100.5 Furosemide [Lasix] 40 mg PO DAILY #30 tab Continue Multivit-Min/FA/Lycopen/Lutein [Centrum Silver Tablet] 1 tab PO HS Cholecalciferol [Vitamin D3 (25 Mcg = 1000 Iu)] 25 mcg PO DAILY Calcium Carbonate [Calcium] 600 mg PO DAILY Levothyroxine Sodium [Synthroid] 68.5 mcg PO BENITEZ Levothyroxine Sodium [Synthroid] 137 mcg PO MOTUWETHFRSA Apixaban [Eliquis] 5 mg PO BID Omeprazole 20 mg PO BID Ginkgo Biloba [place] Extract [Ginkgo] 60 mg PO BID Montelukast [Singulair] 10 mg PO HS Metoprolol Succinate (ER) [Toprol XL] 100 mg PO DAILY buPROPion SR [Wellbutrin SR] 150 mg PO BID Atorvastatin [Lipitor] 20 mg PO HS Losartan Potassium [Cozaar] 100 mg PO DAILY Nitroglycerin Sl Tabs [Nitrostat] 0.4 mg SL Q5M PRN PRN Reason: Chest Pain Albuterol Nebulized [Ventolin Nebulized] 2.5 mg INHALATION RT-Q6H PRN PRN Reason: Shortness Of Breath Ipratropium/Albuter 20-100Mcg [Combivent Respimat 20-100Mcg Inhaler] 1 puff INHALATION RT-Q6H PRN 30 Days #1 each PRN Reason: Shortness Of Breath Changed Albuterol Sulfate [Albuterol Sulfate Hfa] 2 puff PO RT-Q6H PRN #1 each PRN Reason: Shortness Of Breath Discontinued Levofloxacin [Levaquin] 250 mg PO DIRECTED amLODIPine [Norvasc] 2.5 mg PO HS Discharge Medication List Apixaban [Eliquis] 5 mg PO BID 03/16/23 [History] Atorvastatin [Lipitor] 20 mg PO HS 03/16/23 [History] Calcium Carbonate [Calcium] 600 mg PO DAILY 03/16/23 [History] Cholecalciferol [Vitamin D3 (25 Mcg = 1000 Iu)] 25 mcg PO DAILY 03/16/23 [History] Ginkgo Biloba [place] Extract [Ginkgo] 60 mg PO BID 03/16/23 [History] Levothyroxine Sodium [Synthroid] 68.5 mcg PO BENITEZ 03/16/23 [History] Levothyroxine Sodium [Synthroid] 137 mcg PO MOTUWETHFRSA 03/16/23 [History] Metoprolol Succinate (ER) [Toprol XL] 100 mg PO DAILY 03/16/23 [History] Montelukast [Singulair] 10 mg PO HS 03/16/23 [History] Multivit-Min/FA/Lycopen/Lutein [Centrum Silver Tablet] 1 tab PO HS 03/16/23 [History] buPROPion SR [Wellbutrin SR] 150 mg PO BID 03/16/23 [History] Losartan Potassium [Cozaar] 100 mg PO DAILY 05/18/23 [History] Omeprazole 20 mg PO BID 05/18/23 [History] Nitroglycerin Sl Tabs [Nitrostat] 0.4 mg SL Q5M PRN 05/22/23 [History] Albuterol Nebulized [Ventolin Nebulized] 2.5 mg INHALATION RT-Q6H PRN 05/24/23 [History] Clopidogrel [Plavix] 75 mg PO DAILY #90 tablet 05/24/23 [Rx] Acetaminophen Tab [Tylenol] 650 mg PO Q6HR PRN tab 05/25/23 [Rx] Albuterol Sulfate [Albuterol Sulfate Hfa] 2 puff PO RT-Q6H PRN #1 each 05/25/23 [Rx] Furosemide [Lasix] 40 mg PO DAILY #30 tab 05/25/23 [Rx] Ipratropium/Albuter 20-100Mcg [Combivent Respimat 20-100Mcg Inhaler] 1 puff INHALATION RT-Q6H PRN 30 Days #1 each 05/25/23 [Rx] Follow up Appointment(s)/Referral(s): Drake Chatterjee MD [STAFF PHYSICIAN] - 06/05/23 1:30 pm Lorenzo Estrada MD [Medical Doctor] - 06/09/23 4:15 pm Nonstaff,Physician [Primary Care Provider] - 1-2 days Activity/Diet/Wound Care/Special Instructions: Activity limited until follow-up Follow-up with primary care provider on discharge Follow-up with pulmonary outpatient in 1 to 2 weeks follow-up with cardiology in 1 week Continue taking medications as prescribed If you notice lower extremity swelling use compression stockings and/or Abhinav wraps to bilateral lower extremities and elevate while at rest Discharge Disposition: HOME SELF-CARE
== END 2023-05-26 12:13 | disposition home or self-care (01) | DRG 291 ==
LOC: EC 11:39 → 6NMEDSUR 13:16 → OBSVTOIN 13:16 → 6NMEDSUR 13:51
PROVIDERS: ADMIT Internal Medicine; ATTEND Internal Medicine
DX: I11.0 Hypertensive heart disease with heart failure (principal); I50.23 Acute on chronic systolic (congestive) heart failure; Z68.41 Body mass index [BMI] 40.0-44.9, adult; I25.10 Atherosclerotic heart disease of native coronary artery without angina pectoris; E78.5 Hyperlipidemia, unspecified; E66.01 Morbid (severe) obesity due to excess calories; I34.0 Nonrheumatic mitral (valve) insufficiency; E03.9 Hypothyroidism, unspecified; Z79.890 Hormone replacement therapy; D64.9 Anemia, unspecified; Z96.659 Presence of unspecified artificial knee joint; I25.2 Old myocardial infarction; Z95.5 Presence of coronary angioplasty implant and graft; Z95.3 Presence of xenogenic heart valve; Z95.0 Presence of cardiac pacemaker; Z90.710 Acquired absence of both cervix and uterus; Z86.711 Personal history of pulmonary embolism; Z79.01 Long term (current) use of anticoagulants; Z88.2 Allergy status to sulfonamides; Z88.1 Allergy status to other antibiotic agents; Z87.440 Personal history of urinary (tract) infections; Z90.49 Acquired absence of other specified parts of digestive tract
CPT/HCPCS: 36415; 71046; 71275; 80048; 80053; 83735; 83880; 84484; 85025; 85379; 85610; 85730; 87636; 93005; 93308; 94640; 96365; 96366; 96375; 99285

== ENCOUNTER → 2023-06-26 | Outpatient (CLI) | payer MEDICARE ==
[2023-06-26 17:06] LABS: HCT 38.9 % (37.2-46.3); HGB 12.2 g/dL (12.0-15.0); MCH 30.4 pg (27.0-32.0); MCHC 31.4 g/dL (32.0-37.0); Mean Platelet Volume 10.4 FL (9.5-12.2); NRBC Per 100 WBC 0 X 10*3/uL (0.00-0.01); Platelet Count 213 X 10*3/uL (140-440); RBC 4.01 X 10*6/uL (4.10-5.20); RDW 13.5 % (11.5-14.5); WBC 7.74 X 10*3/uL (4.50-10.00)
[2023-06-26 21:31] LABS: ALT 19 U/L (8-44); AST 12 U/L (13-35); Albumin 4.1 g/dL (3.8-4.9); Albumin/Globulin Ratio 1.78 Ratio (1.60-3.17); Alkaline Phosphatase 99 U/L (41-126); BUN/Creat Ratio 12.54 Ratio (12.00-20.00); Blood Urea Nitrogen 16.3 mg/dL (9.0-27.0); Calcium 9.6 mg/dL (8.7-10.3); Carbon Dioxide 26.3 mmol/L (21.6-31.8); Chloride 97 mmol/L (96-109); Chol/HDL Ratio 4.05 Ratio; Globulin 2.3 g/dL (1.6-3.3); Glucose 128 mg/dL (70-110); LDL Cholesterol,Calculated 130.4 mg/dL (0.0-131.0); Potassium 4.6 mmol/L (3.5-5.5); Sodium 136 mmol/L (135-145); Total Bilirubin 0.7 mg/dL (0.3-1.2); Total Protein 6.4 g/dL (6.2-8.2)
[2023-06-26 21:38] LABS: NT-Pro-B-Type Natriuretic Pept 402 pg/mL (0-450)
== END | disposition home or self-care (01) ==
LOC: LABWHC1 11:25
PROVIDERS: ATTEND Student in an Organized Health Care Education/Training Program
DX: I50.9 Heart failure, unspecified (principal); N18.9 Chronic kidney disease, unspecified; E78.5 Hyperlipidemia, unspecified
CPT/HCPCS: 36415; 80053; 80061; 83036; 83880; 84443; 85027

== ENCOUNTER → 2023-08-21 | Outpatient (CLI) | payer MEDICARE ==
[2023-08-21 16:22] LABS: HCT 39.8 % (37.2-46.3); HGB 12.8 g/dL (12.0-15.0); MCH 31.8 pg (27.0-32.0); MCHC 32.2 g/dL (32.0-37.0); Mean Platelet Volume 10.5 FL (9.5-12.2); NRBC Per 100 WBC 0 X 10*3/uL (0.00-0.01); Platelet Count 155 X 10*3/uL (140-440); RBC 4.02 X 10*6/uL (4.10-5.20); RDW 14.7 % (11.5-14.5); WBC 4.24 X 10*3/uL (4.50-10.00)
[2023-08-21 17:24] LABS: ALT 29 U/L (8-44); AST 18 U/L (13-35); Albumin 4.3 g/dL (3.8-4.9); Albumin/Globulin Ratio 2.26 Ratio (1.60-3.17); Alkaline Phosphatase 80 U/L (41-126); BUN/Creat Ratio 11.93 Ratio (12.00-20.00); Blood Urea Nitrogen 16.7 mg/dL (9.0-27.0); Calcium 9.9 mg/dL (8.7-10.3); Carbon Dioxide 23.8 mmol/L (21.6-31.8); Chloride 104 mmol/L (96-109); Chol/HDL Ratio 3.77 Ratio; Globulin 1.9 g/dL (1.6-3.3); Glucose 134 mg/dL (70-110); Magnesium 2.2 mg/dL (1.5-2.4); Phosphorus 4.3 mg/dL (2.4-5.1); Potassium 4.9 mmol/L (3.5-5.5); Sodium 140 mmol/L (135-145); Total Bilirubin 1.1 mg/dL (0.3-1.2); Total Protein 6.2 g/dL (6.2-8.2)
[2023-08-21 19:30] LABS: NT-Pro-B-Type Natriuretic Pept 604 pg/mL (0-450)
== END | disposition home or self-care (01) ==
LOC: LABWHC1 10:24
PROVIDERS: ATTEND Nurse Practitioner Acute Care
DX: I50.9 Heart failure, unspecified (principal); N39.0 Urinary tract infection, site not specified; E78.5 Hyperlipidemia, unspecified; N17.9 Acute kidney failure, unspecified; E11.22 Type 2 diabetes mellitus with diabetic chronic kidney disease; N18.9 Chronic kidney disease, unspecified; D63.1 Anemia in chronic kidney disease; R80.9 Proteinuria, unspecified
CPT/HCPCS: 36415; 80053; 80061; 83735; 83880; 84100; 85027

== ENCOUNTER 2024-03-20 14:12 | Observation (INO) | payer MEDICARE ==
[2024-03-20] MEDS: PANTOPRAZOLE 40 MG/10 ML VIAL IVP STA (15:45)
[2024-03-20] MEDS: ONDANSETRON 4 MG/2 ML VIAL IVP STA (15:46)
[2024-03-20] MEDS: SODIUM CHLORIDE 0.9% 1,000 ML IV STA (15:48)
[2024-03-20 16:16] LABS: Basophils % (A) 0 %; Eosinophils % (A) 0 %; HGB 14.4 gm/dL (11.4-16.0); Lymphocytes # (A) 0.7 k/uL (1.0-4.8); Lymphocytes % (A) 26 %; MCV 97.3 fL (80.0-100.0); Mean Platelet Volume 8.8; Monocytes # (A) 0.3 k/uL (0-1.0); Monocytes % (A) 12 %; Neutrophils # (A) 1.7 k/uL (1.3-7.7); Neutrophils % (A) 61 %; RBC 4.22 m/uL (3.80-5.40); RDW 12.6 % (11.5-15.5); WBC 2.7 k/uL (3.8-10.6)
[2024-03-20 16:22] LABS: INR 1.1 (<1.2)
[2024-03-20 16:26] LABS: ALT 37 U/L (4-34); AST 33 U/L (14-36); African American GFR (CKD) 77 (>60 ml/min/1.73 sqM); Albumin 3.9 g/dL (3.5-5.0); Alkaline Phosphatase 70 U/L (38-126); Anion Gap 11 mmol/L; Blood Urea Nitrogen 12 mg/dL (7-17); Carbon Dioxide 23 mmol/L (22-30); Chloride 99 mmol/L (98-107); Glucose 124 mg/dL (74-99); Magnesium 1.8 mg/dL (1.6-2.3); Non-African American GFR(CKD) 66 (>60 ml/min/1.73 sqM); Potassium 3.5 mmol/L (3.5-5.1); Sodium 133 mmol/L (137-145)
[2024-03-20 16:33] LABS: Platelet Count 89 k/uL (150-450)
[2024-03-20 16:34] LABS: RBC Morphology Normal
--- NOTE | 2024-03-20 16:44 | ED ---
General Adult HPI - General Chief complaint: Nausea/Vomiting/Diarrhea Stated complaint: Dehydration Time Seen by Provider: 03/20/24 14:40 Source: patient, EMS, RN notes reviewed, old records reviewed Mode of arrival: EMS - History of Present Illness Initial comments: Patient is a 78-year-old female who presents emergency department complaining of persistent nausea and vomiting and been unable to tolerate any oral intake. This has been an ongoing issue for a few days. Patient's was diagnosed with COVID recently. Patient has been having upper respiratory symptoms for a few days, however has had decreased oral intake over the last 2 days secondary to the persistent vomiting. States she cannot hold any food down. Endorses some weakness associated with it. No fevers that she is aware of. Patient is on blood thinners for PE and states her medications appear to be held down. He has no other acute complaints at this time. Denies chest pain, shortness of breath, abdominal pain. Presents for further evaluation.Patient does have a history of PEs as well as pacemaker placed. - Related Data Home Medications Medication Instructions Recorded Confirmed Apixaban [Eliquis] 5 mg PO BID 03/16/23 03/20/24 Calcium Carbonate [Calcium] 600 mg PO DAILY 03/16/23 03/20/24 Cholecalciferol [Vitamin D3 (25 25 mcg PO DAILY 03/16/23 03/20/24 Mcg = 1000 Iu)] Levothyroxine Sodium [Synthroid] 137 mcg PO DAILY 03/16/23 03/20/24 Metoprolol Succinate (ER) [Toprol 100 mg PO DAILY 03/16/23 03/20/24 XL] Multivit-Min/FA/Lycopen/Lutein 1 tab PO HS 03/16/23 03/20/24 [Centrum Silver Tablet] Omeprazole 20 mg PO AC-BRKFST 05/18/23 03/20/24 Nitroglycerin Sl Tabs [Nitrostat] 0.4 mg SL Q5M PRN 05/22/23 03/20/24 Atorvastatin [Lipitor] 40 mg PO HS 03/20/24 03/20/24 Empagliflozin [Jardiance] 10 mg PO DAILY 03/20/24 03/20/24 Ezetimibe [Zetia] 10 mg PO HS 03/20/24 03/20/24 Sacubitril/Valsartan [Entresto 24 1 tab PO BID 03/20/24 03/20/24 mg-26 mg Tablet] Spironolactone [Aldactone] 12.5 mg PO DAILY 03/20/24 03/20/24 buPROPion HCL [buPROPion HCL SR] 150 mg PO DAILY 03/20/24 03/20/24 Previous Rx's Medication Instructions Recorded Clopidogrel [Plavix] 75 mg PO DAILY #90 tablet 05/24/23 Allergies Allergy/AdvReac Type Severity Reaction Status Date / Time cephalexin [From Keflex] Allergy Rash/Hives Verified 03/20/24 18:14 Sulfa (Sulfonamide Allergy Rash/Hives Verified 03/20/24 18:14 Antibiotics) Review of Systems ROS Statement: Those systems with pertinent positive or pertinent negative responses have been documented in the HPI. Review of Systems: CONST: Denies fever EYES: Denies blurry vision ENT: Denies nasal congestion C/V: Denies Chest pain RESP: Denies shortness of breath GI: Endorses nausea and vomiting : Denies dysuria SKIN: Denies rash. MSK: Denies joint pain. NEURO: Endorses weakness ROS Other: All systems not noted in ROS Statement are negative. Past Medical History Past Medical History: COPD, Hyperlipidemia, Hypertension, Pulmonary Embolus (PE), Thyroid Disorder History of Any Multi-Drug Resistant Organisms: None Reported Past Surgical History: Cholecystectomy, Hysterectomy, Pacemaker Additional Past Surgical History / Comment(s): TAVR Heart valve replacement, thyroid surgery, wrist surgery, neck surgery, knee replacement x3. Past Anesthesia/Blood Transfusion Reactions: No Reported Reaction Type of Cardiac Device: Permanent Pacemaker Device Placement Date:: 08/18/20 Past Psychological History: No Psychological Hx Reported Smoking Status: Never smoker Past Alcohol Use History: Occasional Past Drug Use History: None Reported - Past Family History Father Family Medical History: COPD, Myocardial Infarction ([place]) General Exam - General Exam Comments Initial Comments: General: Appears in no acute distress. HEAD: Normal with no signs of head trauma. EYES: EOMI ENT: Hearing grossly intact, normal oropharynx. Mildly dry mucous membranes. RESPIRATORY: Clear breath sounds bilaterally. No wheezes, rales, or rhonchi. C/V: Regular rate and rhythm. S1 and S2 auscultated, no edema, peripheral pulses 2+ and intact throughout ABD: Soft, nondistended. No significant tenderness to palpation. No guarding or rebound tenderness. No peritoneal signs. EXT: no obvious deformity SKIN: No rashes or lesions observed on exposed skin. NEURO: Alert and oriented x 4. Course Vital Signs 03/20/24 03/20/24 14:15 18:44 Temperature 97.9 F Pulse Rate 70 67 Respiratory 18 18 Rate Blood Pressure 125/69 166/87 O2 Sat by Pulse 99 99 Oximetry Medical Decision Making - Medical Decision Making Was pt. sent in by a medical professional or institution (, PA, SKEIN INSPECTOR, urgent care, hospital, or long term...) When possible be specific @ -No Did you speak to anyone other than the patient for history (EMS, parent, family, police, friend...)? What history was obtained from this source @ -No Did you review nursing and triage notes (agree or disagree)? Why? @ -I reviewed and agree with nursing and triage notes Were old charts reviewed (outside hosp., previous admission, EMS record, old EKG, old radiological studies, urgent care reports/EKG's, long term records)? Report findings @ -Compared with EKG from May 2023, no obvious acute changes with today. Differential Diagnosis (chest pain, altered mental status, abdominal pain women, abdominal pain men, vaginal bleeding, weakness, fever, dyspnea, syncope, headach e, dizziness, GI bleed, back pain, seizure, CVA, palpatations, mental health, musculoskeletal)? @ -Differential Weakness: Hypoglycemia, shock, sepsis, hyponatremia, anemia, infection, [place], ETOH, adverse medicine reaction, overdose, stroke, this is not meant to be an all-inclusive list. EKG interpreted by me (3pts min.). @ -As above X-rays interpreted by me (1pt min.). @ -Chest x-ray reveals no obvious acute cardiopulmonary process. CT interpreted by me (1pt min.). @ -None done U/S interpreted by me (1pt. min.). @ -None done What testing was considered but not performed or refused? (CT, X-rays, U/S, labs)? Why? @ -None What meds were considered but not given or refused? Why? @ -None Did you discuss the management of the patient with other professionals (professionals i.e. , ANANYA, SKEIN INSPECTOR, lab, RT, psych nurse, social science research assistant, credit review manager, teacher, college service officer, case hardener)? Give summary @ -I spoke with the admitting provider, Dr. Hensley of [facility] who is covering for Dr. Cerrato Who accepted the admission. Was smoking cessation discussed for >3mins.? @ -No Was critical care preformed (if so, how long)? @ -No Were there social determinants of health that impacted care today? How? (Homel essness, low income, unemployed, alcoholism, drug addiction, transportation, low edu. Level, literacy, decrease access to med. care, penitentiary, rehab)? @ -No Was there de-escalation of care discussed even if they declined (Discuss DNR or withdrawal of care, Hospice)? DNR status @ -No What co-morbidities impacted this encounter? (DM, HTN, Smoking, COPD, CAD, Cancer, CVA, ARF, Chemo, Hep., AIDS, mental health diagnosis, sleep apnea, morbid obesity)? @ -None Was patient admitted / discharged? Hospital course, mention meds given and route, prescriptions, significant lab abnormalities, going to OR and other pertinent info. @ -Patient presents emergency department complaining of weakness with persi stent nausea and vomiting in the setting of COVID exposure. Vitals are currently within acceptable limits. We will obtain general workup. She has a cardiac history which we will obtain laboratory studies 4. Patient was in agreement this plan. Symptoms been ongoing for over a day. EKG shows no signs of acute ischemia. Laboratory studies remarkable for an indeterminate troponin which patient does have a history of. Patient is COVID- positive. Patient does have thrombocytopenia which appears to be new. Patient symptomatically treated with IV fluids, Zofran, Protonix. Chest x-ray unremarkable. Urinalysis still pending. On reevaluation, patient is still feeling mildly nauseous. Unable to tolerate oral intake. Patient will be admitted to the hospital at this time. Patient in agreement with this plan. She is still feeling weak as well. I spoke with the admitting provider, Dr. Hensley of [facility] who is covering for Dr. Cerrato Who accepted the admission. Undiagnosed new problem with uncertain prognosis? @ -No Drug Therapy requiring intensive monitoring for toxicity (Heparin, Nitro, Insulin, Cardizem)? @ -No Were any procedures done? @ -No Diagnosis/symptom? @ -COVID-19 infection, weakness, dehydration Acute, or Chronic, or Acute on Chronic? @ -Acute Uncomplicated (without systemic symptoms) or Complicated (systemic symptoms)? @ -Complicated Side effects of treatment? @ -None Exacerbation, Progression, or Severe Exacerbation] @ -No Poses a threat to life or bodily function? @ -Possibly, yes - Lab Data Result diagrams: 03/20/24 15:33 03/20/24 15:33 Lab Results 03/20/24 03/20/24 03/20/24 Range/Units 15:33 15:33 15:33 WBC 2.7 L (3.8-10.6) k/uL RBC 4.22 (3.80-5.40) m/uL Hgb 14.4 (11.4-16.0) gm/dL Hct 41.0 (34.0-46.0) % MCV 97.3 (80.0-100.0) fL MCH 34.0 (25.0-35.0) pg MCHC 35.0 (31.0-37.0) g/dL RDW 12.6 (11.5-15.5) % Plt Count 89 L (150-450) k/uL MPV 8.8 Neutrophils % 61 % Lymphocytes % 26 % Monocytes % 12 % Eosinophils % 0 % Basophils % 0 % Neutrophils # 1.7 (1.3-7.7) k/uL Lymphocytes # 0.7 L (1.0-4.8) k/uL Monocytes # 0.3 (0-1.0) k/uL Eosinophils # 0.0 (0-0.7) k/uL Basophils # 0.0 (0-0.2) k/uL Manual Slide Review Performed RBC Morphology Normal PT 12.0 (10.0-12.5) sec INR 1.1 (<1.2) APTT 23.0 (22.0-30.0) sec Sodium 133 L (137-145) mmol/L Potassium 3.5 (3.5-5.1) mmol/L Chloride 99 (98-107) mmol/L Carbon Dioxide 23 (22-30) mmol/L Anion Gap 11 mmol/L BUN 12 (7-17) mg/dL Creatinine 0.86 (0.52-1.04) mg/dL Est GFR (CKD-EPI)AfAm 77 (>60 ml/min/1.73 sqM) Est GFR (CKD-EPI)NonAf 66 (>60 ml/min/1.73 sqM) Glucose 124 H (74-99) mg/dL Plasma Lactic Acid Giancarlo (0.7-2.0) mmol/L Calcium 9.0 (8.4-10.2) mg/dL Magnesium 1.8 (1.6-2.3) mg/dL Total Bilirubin 2.0 H (0.2-1.3) mg/dL AST 33 (14-36) U/L ALT 37 H (4-34) U/L Alkaline Phosphatase 70 (38-126) U/L Troponin I (0.000-0.034) ng/mL Total Protein 6.0 L (6.3-8.2) g/dL Albumin 3.9 (3.5-5.0) g/dL Influenza Type A (PCR) (Not Detectd) Influenza Type B (PCR) (Not Detectd) RSV (PCR) (Not Detectd) SARS-CoV-2 (PCR) (Not Detectd) 03/20/24 03/20/24 03/20/24 Range/Units 15:33 15:33 16:19 WBC (3.8-10.6) k/uL RBC (3.80-5.40) m/uL Hgb (11.4-16.0) gm/dL Hct (34.0-46.0) % MCV (80.0-100.0) fL MCH (25.0-35.0) pg MCHC (31.0-37.0) g/dL RDW (11.5-15.5) % Plt Count (150-450) k/uL MPV Neutrophils % % Lymphocytes % % Monocytes % % Eosinophils % % Basophils % % Neutrophils # (1.3-7.7) k/uL Lymphocytes # (1.0-4.8) k/uL Monocytes # (0-1.0) k/uL Eosinophils # (0-0.7) k/uL Basophils # (0-0.2) k/uL Manual Slide Review RBC Morphology PT (10.0-12.5) sec INR (<1.2) APTT (22.0-30.0) sec Sodium (137-145) mmol/L Potassium (3.5-5.1) mmol/L Chloride (98-107) mmol/L Carbon Dioxide (22-30) mmol/L Anion Gap mmol/L BUN (7-17) mg/dL Creatinine (0.52-1.04) mg/dL Est GFR (CKD-EPI)AfAm (>60 ml/min/1.73 sqM) Est GFR (CKD-EPI)NonAf (>60 ml/min/1.73 sqM) Glucose (74-99) mg/dL Plasma Lactic Acid Giancarlo 1.1 (0.7-2.0) mmol/L Calcium (8.4-10.2) mg/dL Magnesium (1.6-2.3) mg/dL Total Bilirubin (0.2-1.3) mg/dL AST (14-36) U/L ALT (4-34) U/L Alkaline Phosphatase (38-126) U/L Troponin I 0.023 (0.000-0.034) ng/mL Total Protein (6.3-8.2) g/dL Albumin (3.5-5.0) g/dL Influenza Type A (PCR) Not Detected (Not Detectd) Influenza Type B (PCR) Not Detected (Not Detectd) RSV (PCR) Not Detected (Not Detectd) SARS-CoV-2 (PCR) Detected A (Not Detectd) - EKG Data -: EKG Interpreted by Me EKG Comments: 12-lead Electrocardiogram Interpretation Note EKG was reviewed and interpreted by myself. 12-lead ECG performed at 1520 is interpreted by me as revealing paced rhythm at a rate of 64 beats per minute. Left axis deviation. QRS durations 186 ms, QTc is 470 ms,. There were no ST or T wave abnormalities to suggest myocardial ischemia or injury. R wave progression across the precordium was satisfactory. By my interpretation this EKG is non-diagnostic for acute ischemia. Disposition Clinical Impression: Weakness, COVID-19, Dehydration Disposition: ADMITTED IP TO THIS HOSP Condition: Stable Time of Disposition: 17:50
--- NOTE | 2024-03-20 17:00 | XR ---
EXAMINATION TYPE: XR chest 2V DATE OF EXAM: 03/20/2024 4:49 PM COMPARISON: Chest radiographs from CLINICAL INDICATION: Female, 78 years old with history of Weakness; [facility] TECHNI[facility]: XR chest 2V Frontal and lateral views of the chest. FINDINGS: Lungs/Pleura: There is no evidence of pleural effusion, focal consolidation, or pneumothorax. Pulmonary vascularity: Unremarkable. Heart/mediastinum: Cardiomediastinal silhouette is unremarkable. Musculoskeletal: No acute osseous pathology. Other findings: None Left chest wall cardiac pacemaker device with leads overlying the right atrium and right ventricle. P artially visualized cervical spine fusion hardware. Previous aVR. IMPRESSION: No acute cardiopulmonary disease/process. [facility], , 03/20/2024 4:57 PM
[2024-03-20] MEDS ORDERED: NALOXONE 0.4 MG/ML 1 ML VIAL IV PRN (17:52)
[2024-03-20] MEDS ORDERED: ONDANSETRON 4 MG/2 ML VIAL IVP PRN (17:52)
[2024-03-20] MEDS: SODIUM CHLORIDE 0.9% 1,000 ML IV SCH (18:33)
[2024-03-20 21:25] LABS: Appearance,Urine Clear (Clear); Bacteria,Urine Rare /hpf; Bilirubin,Urine Negative (Negative); Blood,Urine Negative (Negative); Color,Urine Yellow; Glucose,Urine (UA) 4+ (Negative); Ketones,Urine 1+ (Negative); Leukocyte Esterase,Urine Moderate (Negative); Nitrite,Urine Negative (Negative); PH, Urine 5.5 (5.0-8.0); Protein,Urine Negative (Negative); RBC,Urine 2 /hpf (0-5); Specific Gravity,Urine 1.028 (1.001-1.035); Squamous Epithelial Cell,Urine 5 /hpf (0-4); Urobilinogen,Urine <2.0 mg/dL (<2.0); WBC,Urine 2 /hpf (0-5)
[2024-03-21] MEDS ORDERED: NITROGLYCERIN SL TABS 0.4 MG TAB SUBLINGUAL PRN (06:15)
[2024-03-21] MEDS: SACUBITRIL/VALSARTAN 24 MG-26 MG TABLET PO SCH (08:26)
[2024-03-21] MEDS: SPIRONOLACTONE 25 MG TAB PO SCH (08:26)
[2024-03-21] MEDS: buPROPion SR 150 MG TABLET.ER PO SCH (08:27)
[2024-03-21] MEDS: LEVOTHYROXINE 137 MCG TAB PO SCH (08:27)
[2024-03-21] MEDS: CALCIUM CARBONATE 500 MG CHEWABLE PO SCH (08:27)
[2024-03-21] MEDS: PANTOPRAZOLE 40 MG TABLET PO SCH (08:27)
[2024-03-21] MEDS: CHOLECALCIFEROL 25 MCG (1000 IU) TABLET PO SCH (08:27)
[2024-03-21] MEDS: APIXABAN 5 MG TAB PO SCH (08:27)
[2024-03-21] MEDS: METOPROLOL SUCCINATE (ER) 100 MG TAB.ER.24H PO SCH (08:27)
[2024-03-21] MEDS: CLOPIDOGREL 75 MG TAB PO SCH (08:30)
[2024-03-21] MEDS ORDERED: PANTOPRAZOLE 40 MG/10 ML VIAL IV SCH (09:00)
[2024-03-21 09:21] LABS: ALT 32 U/L (8-44); AST 28 U/L (13-35); Albumin 3.5 g/dL (3.8-4.9); Albumin/Globulin Ratio 2.33 Ratio (1.60-3.17); Alkaline Phosphatase 65 U/L (41-126); BUN/Creat Ratio 10.33 Ratio (12.00-20.00); Blood Urea Nitrogen 9.3 mg/dL (9.0-27.0); Calcium 8.3 mg/dL (8.7-10.3); Carbon Dioxide 21.4 mmol/L (21.6-31.8); Chloride 107 mmol/L (96-109); Globulin 1.5 g/dL (1.6-3.3); Glucose 86 mg/dL (70-110); Potassium 3.7 mmol/L (3.5-5.5); Sodium 139 mmol/L (135-145); Total Bilirubin 1.3 mg/dL (0.3-1.2)
[2024-03-21 10:34] LABS: Basophils # (A) 0.01 X 10*3/uL (0.00-0.10); Basophils % (A) 0.3 %; Eosinophils # (A) 0 X 10*3/uL (0.04-0.35); Eosinophils % (A) 0 %; HCT 38.4 % (37.2-46.3); HGB 12.6 g/dL (12.0-15.0); Lymphocytes # (A) 1.34 X 10*3/uL (0.90-5.00); Lymphocytes % (A) 46.9 %; MCH 33.2 pg (27.0-32.0); MCHC 32.8 g/dL (32.0-37.0); MCV 101.3 FL (80.0-97.0); Mean Platelet Volume 11.3 FL (9.5-12.2); Monocytes # (A) 0.42 X 10*3/uL (0.20-1.00); Monocytes % (A) 14.7 %; NRBC Per 100 WBC 0 X 10*3/uL (0.00-0.01); Neutrophils # (A) 1.07 X 10*3/uL (1.80-7.70); Neutrophils % (A) 37.4 %; Platelet Count 91 X 10*3/uL (140-440); RBC 3.79 X 10*6/uL (4.10-5.20); RBC Morphology Normal (Normal); RDW 12.4 % (11.5-14.5); WBC 2.86 X 10*3/uL (4.50-10.00)
[2024-03-21] MEDS: ACETAMINOPHEN TAB 325 MG TAB PO PRN (10:54)
[2024-03-21] MEDS: EZETIMIBE 10 MG TAB PO SCH (20:44)
[2024-03-21] MEDS: MULTIVITAMINS, THERA 1 EACH TAB PO SCH (20:44)
[2024-03-21] MEDS: ATORVASTATIN 40 MG TAB PO SCH (20:44)
[2024-03-22 08:02] LABS: HCT 38.6 % (34.0-46.0); HGB 12.7 gm/dL (11.4-16.0); MCH 33.2 pg (25.0-35.0); MCHC 32.9 g/dL (31.0-37.0); MCV 100.9 fL (80.0-100.0); Mean Platelet Volume 8.5; Platelet Count 101 k/uL (150-450); RBC 3.83 m/uL (3.80-5.40); RDW 12.4 % (11.5-15.5); WBC 2.5 k/uL (3.8-10.6)
[2024-03-22 08:15] LABS: ALT 30 U/L (4-34); AST 25 U/L (14-36); African American GFR (CKD) 77 (>60 ml/min/1.73 sqM); Albumin/Globulin Ratio 1.6; Alkaline Phosphatase 60 U/L (38-126); Anion Gap 3 mmol/L; Blood Urea Nitrogen 7 mg/dL (7-17); Calcium 8.3 mg/dL (8.4-10.2); Carbon Dioxide 29 mmol/L (22-30); Chloride 106 mmol/L (98-107); Globulin 1.9 g/dL; Glucose 85 mg/dL (74-99); Non-African American GFR(CKD) 67 (>60 ml/min/1.73 sqM); Potassium 3.5 mmol/L (3.5-5.1); Sodium 138 mmol/L (137-145); Total Bilirubin 1.4 mg/dL (0.2-1.3); Total Protein 4.9 g/dL (6.3-8.2)
--- NOTE | 2024-03-22 08:50 | P.HPIM ---
History of Present Illness H&P Date: 03/21/24 HISTORY OF PRESENT ILLNESS: This is a 78-year-old female with a previous medical history significant for coronary artery disease status post PCI February 2023, hypertension and hypertensive cardiovascular disease, hyperlipidemia, paroxysmal atrial fibrillation, ischemic cardiomyopathy, hypothyroidism, GERD, allergic rhinitis, rheumatoid arthritis, vitamin D deficiency, patient presented to the emergency department at [facility] because of intractable nausea and vomiting and not able to keep anything down, was diagnosed with COVID few days ago, patient was complaining generalized weakness, she is not able to do much at this point in time, she tested positive for COVID, the rest of the vitamin panel came back negative chest of the presentation and because of her ot her comorbidities she was admitted to the hospital for IV fluid resuscitation and treatment. REVIEW OF SYSTEMS: Constitutional: No documented fever, no chills, no night sweats. No weight change. No weakness, fatigue or lethargy. No daytime sleepiness. EENT: positive for headache. No blurred vision or double vision, no loss of vision. No loss of Hearing, no ringing in the ears, no dizziness. No nasal drainage or congestion. No epistaxis. No sore throat. Lungs: No shortness of breath, no cough, no sputum production. No wheezing. Reports dyspnea with activity. Cardiovascular: No chest pain, no lower extremity edema. No palpitations. No paroxysmal nocturnal dyspnea. No orthopnea. No lightheadedness or dizziness. No syncopal episodes. Abdominal: Reports abdominal pain. positive for nausea,positive for vomiting. No diarrhea. No constipation. No bloody or tarry stools reports loss of appetite. Genitourinary: No dysuria, increased frequency, urgency. No urinary retention. Musculoskeletal: No myalgias. No muscle weakness, no gait dysfunction, no frequent falls. No back pain. No neck pain.positive for right knee pain Integumentary: No wounds, no lesions. No rash or pruritus. No unusual bruising. No change in hair or nails. Neurologic: No aphasia. No facial droop. No change in mentation. No head injury. No headache. No paralysis. No paresthesia. Psychiatric: No depression. No anxiety. No mood swings. Endocrine: No abnormal blood sugars. No weight change. PAST MEDICAL HISTORY: Coronary artery disease status post PCI 1222 Hypertension and hypertensive cardiovascular disease. Ischemic cardiomyopathy. Paroxysmal atrial fibrillation. Mixed hyperlipidemia. Hypothyroidism. GERD without esophagitis. Anxiety. Allergic rhinitis. Rheumatoid arthritis. Vitamin D deficiency. PAST SURGICAL HISTORY: Partial thyroidectomy. Laparoscopic cholecystectomy. Partial hysterectomy due to uterine prolapse. ACDF. Left total knee replacement with revision Right total knee replacement Aortic valve replacement [facility] 2019 Pacemaker 2019 Left heart catheterization with PCI 03/11 Left wrist carpal tunnel release. SOCIAL HISTORY: Patient is a lifelong non-smoker, she denies any alcohol ingestion, she denies any drug use or abuse. She lives with her . FAMILY HISTORY: Mother at age of 78 after he fell and had hip fracture had history of CAD p ost OR, mother at the age of 84 from abdominal aortic aneurysm, patient has 1 brother 71-year-old with CABG x 3 patient has 1 sister 82-year-old alive and well patient has 2 sons alive and well. PHYSICAL EXAMINATION: General: 78-year-old female laying down in bed in no apparent dist ress. HEENT: Head is atraumatic, normocephalic, pupils were equal round reactive to light and recommendation, extraocular muscle movement were intact, sclera nonicteric, conjunctivae were pale, mucous membranes of the mouth are somewhat dry. Neck: Supple, no JVP, normal carotid upstroke bilaterally, no lymphadenopathy. Chest: Decreased breath sounds at the bases, few rhonchi, no expiratory wheezes, no chest wall tenderness, no intercostal retractions. Heart: First heart sound is normal, second heart sound is normal there is aortic valve click, there is systolic ejection murmur 2/6 located left sternal border. Abdomen: Soft, nontender, nondistended, positive bowel sounds. Extremities: There is no edema no calf tenderness DP +2 bilaterally. Neurologic examination: Patient is awake alert and oriented x3, cranial nerves II-12 appear grossly intact, muscle power were 5 out of 5 in upper extremities and 5 out of 5 in bilateral lower extremities, deep tendon reflexes normal bilaterally. ASSESSMENT AND PLAN: 1. Nausea and vomiting likely due to COVID-19 infection. Continue IV fluid resuscitation in the form of normal saline 75 cc an hour, monitor input and output and daily weight, continue supportive care, follow-up with the patient very closely. 2. Hyponatremia likely due to hypovolemia. Continue IV fluid resuscitation monitor the patient CMP over the next 24 hours. 3. Coronary artery disease status post PCI. Continue patient on metoprolol ER 100 mg orally once every day, continue atorvastatin 40 mg once every day, monitor the patient very closely, patient follows with cardiology on a regular basis. 4. Ischemic cardiomyopathy. Continue patient on metoprolol ER 100 mg orally once every day, Entresto 24/26 mg orally twice every day hold Lasix for now, hold Jardiance for now. 5. Mixed hyperlipidemia. Continue patient on atorvastatin 40 mg once every day monitor patient lipid panel, keep LDL 55-70. 6. Paroxysmal atrial fibrillation continue patient on metoprolol ER 100 mg once every day, Eliquis 5 mg orally twice every day. 7. Hypothyroidism. Continue levothyroxine 137 mcg orally once every day. 8.. Continue patient on Protonix 40 mg orally once every day. 9. Anxiety. Continue Wellbutrin 50 mg orally once every day. 10. Hypertension and hypertensive cardiovascular disease. Continue patient on metoprolol ER 100 mg orally once every day Entresto 24/26 mg orally twice every day. 11.. Allergic rhinitis. Stable at this time. 12. DVT prophylaxis.. Continue patient on Eliquis 5 mg orally twice every day. 13. GI prophylaxis. Continue with Protonix 40 mg orally once every day. 14. Admit to inpatient. Estimated length of stay 2 midnights. 15. Patient is full code. Past Medical History Past Medical History: Heart Failure, COPD, Hyperlipidemia, Hypertension, Pulmonary Embolus (PE), Thyroid Disorder History of Any Multi-Drug Resistant Organisms: None Reported Past Surgical History: Cholecystectomy, Hysterectomy, Pacemaker Additional Past Surgical History / Comment(s): TAVR Heart valve replacement, thyroid surgery, wrist surgery, neck surgery, knee replacement x3. Past Anesthesia/Blood Transfusion Reactions: No Reported Reaction Type of Cardiac Device: Permanent Pacemaker Device Placement Date:: 08/18/20 Past Psychological History: No Psychological Hx Reported Smoking Status: Never smoker Past Alcohol Use History: Occasional Past Drug Use History: None Reported - Past Family History Father Family Medical History: COPD, Myocardial Infarction ([place]) Mother Family Medical History: COPD Medications and Allergies Home Medications Medication Instructions Recorded Confirmed Type Apixaban [Eliquis] 5 mg PO BID 03/16/23 03/20/24 History Calcium Carbonate [Calcium] 600 mg PO DAILY 03/16/23 03/20/24 History Cholecalciferol [Vitamin D3 (25 25 mcg PO DAILY 03/16/23 03/20/24 History Mcg = 1000 Iu)] Levothyroxine Sodium [Synthroid] 137 mcg PO DAILY 03/16/23 03/20/24 History Metoprolol Succinate (ER) [Toprol 100 mg PO DAILY 03/16/23 03/20/24 History XL] Multivit-Min/FA/Lycopen/Lutein 1 tab PO HS 03/16/23 03/20/24 History [Centrum Silver Tablet] Omeprazole 20 mg PO AC-BRKFST 05/18/23 03/20/24 History Nitroglycerin Sl Tabs [Nitrostat] 0.4 mg SL Q5M PRN 05/22/23 03/20/24 History Clopidogrel [Plavix] 75 mg PO DAILY #90 tablet 05/24/23 03/20/24 Rx Atorvastatin [Lipitor] 40 mg PO HS 03/20/24 03/20/24 History Empagliflozin [Jardiance] 10 mg PO DAILY 03/20/24 03/20/24 History Ezetimibe [Zetia] 10 mg PO HS 03/20/24 03/20/24 History Sacubitril/Valsartan [Entresto 24 1 tab PO BID 03/20/24 03/20/24 History mg-26 mg Tablet] Spironolactone [Aldactone] 12.5 mg PO DAILY 03/20/24 03/20/24 History buPROPion HCL [buPROPion HCL SR] 150 mg PO DAILY 03/20/24 03/20/24 History Allergies Allergy/AdvReac Type Severity Reaction Status Date / Time cephalexin [From Keflex] Allergy Rash/Hives Verified 03/20/24 18:14 Sulfa (Sulfonamide Allergy Rash/Hives Verified 03/20/24 18:14 Antibiotics) Physical Exam Vitals: Vital Signs Temp Pulse Pulse Resp BP BP Pulse Ox 03/21/24 02:22 98.3 F 71 17 107/50 98 03/20/24 22:23 98.0 F 73 16 111/75 99 03/20/24 22:02 61 18 117/60 96 03/20/24 21:22 67 18 121/66 99 03/20/24 18:44 67 18 166/87 99 03/20/24 14:15 97.9 F 70 18 125/69 99 Intake and Output 03/20/24 03/20/24 03/21/24 14:59 22:59 06:59 Other: # Voids 2 Weight 97.522 kg 97.522 kg Results CBC & Chem 7: 03/22/24 07:43 03/22/24 07:43 Labs: Abnormal Lab Results - Last 24 Hours (Table) 03/20/24 03/20/24 03/20/24 Range/Units 15:33 15:33 15:33 WBC 2.7 L (3.8-10.6) k/uL Plt Count 89 L (150-450) k/uL Lymphocytes # 0.7 L (1.0-4.8) k/uL Sodium 133 L (137-145) mmol/L Glucose 124 H (74-99) mg/dL Total Bilirubin 2.0 H (0.2-1.3) mg/dL ALT 37 H (4-34) U/L Total Protein 6.0 L (6.3-8.2) g/dL Urine Glucose (UA) (Negative) Urine Ketones (Negative) Ur Leukocyte Esterase (Negative) Ur Squamous Epith Cells (0-4) /hpf Urine Bacteria (None) /hpf SARS-CoV-2 (PCR) Detected A (Not Detectd) 03/20/24 Range/Units 21:02 WBC (3.8-10.6) k/uL Plt Count (150-450) k/uL Lymphocytes # (1.0-4.8) k/uL Sodium (137-145) mmol/L Glucose (74-99) mg/dL Total Bilirubin (0.2-1.3) mg/dL ALT (4-34) U/L Total Protein (6.3-8.2) g/dL Urine Glucose (UA) 4+ H (Negative) Urine Ketones 1+ H (Negative) Ur Leukocyte Esterase Moderate H (Negative) Ur Squamous Epith Cells 5 H (0-4) /hpf Urine Bacteria Rare H (None) /hpf SARS-CoV-2 (PCR) (Not Detectd) Thrombosis Risk Factor Assmnt - Choose All That Apply Each Factor Represents 1 point: Abnormal pulmonary function (COPD), Obesity (BMI >25) Each Risk Factor Represents 3 Points: Age 75 years or older, History of DVT/PE Thrombosis Risk Factor Assessment Total Risk Factor Score: 8 Thrombosis Risk Factor Assessment Level: High Risk
--- NOTE | 2024-03-22 17:45 | P.PN ---
Subjective Progress Note Date: 03/22/24 HISTORY OF PRESENT ILLNESS: This is a 78-year-old female with a previous medical history signif icant for coronary artery disease status post PCI February 2023, hypertension and hypertensive cardiovascular disease, hyperlipidemia, paroxysmal atrial fibrillation, ischemic cardiomyopathy, hypothyroidism, GERD, allergic rhinitis, rheumatoid arthritis, vitamin D deficiency, patient presented to the emergency department at [facility] because of intractable nausea and vomiting and not able to keep anything down, was diagnosed with COVID few days ago, patient was complaining generalized weakness, she is not able to do much at this point in time, she tested positive for COVID, the rest of the vitamin panel came back negative chest of the presentation and because of her other comorbidities she was admitted to the hospital for IV fluid resuscitation and treatment. 03/22: Patient is sitting up in bed she is catching up with her sleep she could not sleep very well last night, she continues to have some dry cough, associated with increased shortness of breath, I will start the patient on Tessalon Perles 200 mg orally 3 times every day, discontinue IV fluid at this time, likely will be able to be discharged home tomorrow morning. REVIEW OF SYSTEMS: Constitutional: No documented fever, no chills, no night sweats. No weight change. No weakness, fatigue or lethargy. No daytime sleepiness. EENT: positive for headache. No blurred vision or double vision, no loss of vision. No loss of Hearing, no ringing in the ears, no dizziness. No nasal drainage or congestion. No epistaxis. No sore throat. Lungs: No shortness of breath, no cough, no sputum production. No wheezing. Reports dyspnea with activity. Cardiovascular: No chest pain, no lower extremity edema. No palpitations. No paroxysmal nocturnal dyspnea. No orthopnea. No lightheadedness or dizziness. No syncopal episodes. Abdominal: Reports abdominal pain. positive for nausea,positive for vomiting. No diarrhea. No constipation. No bloody or tarry stools reports loss of appetite. Genitourinary: No dysuria, increased frequency, urgency. No urinary retention. Musculoskeletal: No myalgias. No muscle weakness, no gait dysfunction, no frequent falls. No back pain. No neck pain.positive for right knee pain Integumentary: No wounds, no lesions. No rash or pruritus. No unusual bruising. No change in hair or nails. Neurologic: No aphasia. No facial droop. No change in mentation. No head injury. No headache. No paralysis. No paresthesia. Psychiatric: No depression. No anxiety. No mood swings. Endocrine: No abnormal blood sugars. No weight change. PHYSICAL EXAMINATION: General: 78-year-old female laying down in bed in no apparent distress. HEENT: Head is atraumatic, normocephalic, pupils were equal round reactive to light and recommendation, extraocular muscle movement were intact, sclera nonicteric, conjunctivae were pale, mucous membranes of the mouth are somewhat dry. Neck: Supple, no JVP, normal carotid upstroke bilaterally, no lymphadenopathy. Chest: Decreased breath sounds at the bases, few rhonchi, no expiratory wheezes, no chest wall tenderness, no intercostal retractions. Heart: First heart sound is normal, second heart sound is normal there is ao rtic valve click, there is systolic ejection murmur 2/6 located left sternal border. Abdomen: Soft, nontender, nondistended, positive bowel sounds. Extremities: There is no edema no calf tenderness DP +2 bilaterally. Neurologic examination: Patient is awake alert and oriented x3, cranial nerves II-12 appear grossly intact, muscle power were 5 out of 5 in upper extremities and 5 out of 5 in bilateral lower extremities, deep tendon reflexes normal bilaterally. ASSESSMENT AND PLAN: 1. Nausea and vomiting likely due to COVID-19 infection. resolved discontinue IV fluid. 2. Hyponatremia likely due to hypovolemia. Resolved. 3. Coronary artery disease status post PCI. Continue patient on metoprolol ER 100 mg orally once every day, continue atorvastatin 40 mg once every day, monitor the patient very closely, patient follows with cardiology on a regular basis. 4. Ischemic cardiomyopathy. Continue patient on metoprolol ER 100 mg orally once every day, Entresto 24/26 mg orally twice every day restart the patient back on Lasix as well as Jardiance. 5. Mixed hyperlipidemia. Continue patient on atorvastatin 40 mg once every day monitor patient lipid panel, keep LDL 55-70. 6. Chest pain atrial fibrillation continue patient on metoprolol ER 100 mg once every day, Eliquis 5 mg orally twice every day. 7. Hypothyroidism. Continue levothyroxine 137 mcg orally once every day. 8.. Continue patient on Protonix 40 mg orally once every day. 9. Anxiety. Continue Wellbutrin 50 mg orally once every day. 10. Hypertension and hypertensive cardiovascular disease. Continue patient on metoprolol ER 100 mg orally once every day Entresto 24/26 mg orally twice every day. 11.. Allergic rhinitis. Stable at this time. 12. DVT prophylaxis.. Continue patient on Eliquis 5 mg orally twice every day. 13. GI prophylaxis. Continue with Protonix 40 mg orally once every day. 14. Recent COVID-19 infection. Continue supportive care, continue vitamin D 1000 unit once every day, zinc to 20 mg once every day, vitamin C 500 mg once every day, start the patient on Tessalon Perles 200 mg orally 3 times every day as well as albuterol HFA 2 puffs inhalation every 4 hours as needed 15. Home tomorrow morning. Objective - Vital Signs Vital signs: Vital Signs Temp 97.7 F 03/22/24 15:00 Pulse 68 03/22/24 15:00 Resp 17 03/22/24 15:00 BP 137/60 03/22/24 15:00 Pulse Ox 100 03/22/24 15:00 FiO2 Intake & Output 03/21/24 03/22/24 03/22/24 18:59 06:59 18:59 Intake Total 1260 356 Balance 1260 356 Intake: Oral 1260 356 Other: Voiding Method Toilet Toilet # Voids 2 - Labs CBC & Chem 7: 03/22/24 07:43 03/22/24 07:43 Labs: Abnormal Lab Results - Last 24 Hours (Table) 03/22/24 03/22/24 Range/Units 07:43 07:43 WBC 2.5 L (3.8-10.6) k/uL MCV 100.9 H (80.0-100.0) fL Plt Count 101 L (150-450) k/uL Calcium 8.3 L (8.4-10.2) mg/dL Total Bilirubin 1.4 H (0.2-1.3) mg/dL Total Protein 4.9 L (6.3-8.2) g/dL Albumin 3.0 L (3.5-5.0) g/dL
[2024-03-22] MEDS ORDERED: ALBUTEROL NEBULIZED 2.5 MG/3 ML INHALATION PRN (17:47)
[2024-03-22 19:55] VITALS: RESP 16
[2024-03-22] MEDS: ASCORBIC ACID 500 MG TAB PO SCH (20:22)
[2024-03-22] MEDS: BENZONATATE 100 MG CAP PO SCH (21:17)
[2024-03-22] MEDS: MELATONIN 3 MG TABLET PO SCH (21:17)
[2024-03-23] MEDS ORDERED: ALBUTEROL HFA INHALER INHALATION PRN (04:40)
[2024-03-23 07:58] VITALS: BP 128/76; PULSE 59; TEMP 98
[2024-03-23] MEDS: DAPAGLIFLOZIN PROPANEDIOL 5 MG TABLET PO SCH (08:07)
[2024-03-23] MEDS: ZINC SULFATE 220 MG CAP PO SCH (08:08)
--- NOTE | 2024-03-23 12:44 | P.DS ---
Providers Date of admission: 03/20/24 17:54 Expected date of discharge: 03/23/24 Attending physician: Joyce Cerrato Primary care physician: Joyce Cerrato Hospital Course: HISTORY OF PRESENT ILLNESS: This is a 78-year-old female with a previous medical history significant for coronary artery disease status post PCI February 2023, hypertension and hypertensive cardiovascular disease, hyperlipidemia, paroxysmal atrial fibrillation, ischemic cardiomyopathy, hypothyroidism, GERD, allergic rhinitis, rheumatoid arthritis, vitamin D deficiency, patient presented to the emergency department at [facility] because of intractable nausea and vomiting and not able to keep anything down, was diagnosed with COVID few days ago, patient was complaining generalized weakness, she is not able to do much at this point in time, she tested positive for COVID, the rest of the vitamin panel came back negative chest of the presentation and because of her other comorbidities she was admitted to the hospital for IV fluid resuscitation and treatment. 13: Patient is sitting up in bed in no apparent distress, she denies any chest pain, shortness of breath, she has no more nausea or vomiting at this time, she seems to be tolerating treatment very well, she is tolerating her diet very well, increasing more fluid intake, patient can be discharged home today and follow-up with us as an outpatient. 14: Patient is doing a lot better today, she denies any chest pain, she continued to have some dry cough, on and off, she has no nausea or vomiting at this time, she is tolerating her treatment very well, she is moving around [facility], she will be discharged home today and follow-up with me as an outpatient next week. Discharge diagnoses: 1. Nausea and vomiting likely due to COVID-19 infection. 2. Hyponatremia likely due to hypovolemia. 3. Coronary artery disease status post PCI. 4. Ischemic cardiomyopathy. 5. Mixed hyperlipidemia. 6. Paroxysmal atrial fibrillation 7. Hypothyroidism. 8.. GERD 9. Anxiety. 10. Hypertension and hypertensive cardiovascular disease. 11.. Allergic rhinitis. Stable at this time. Patient Condition at Discharge: Stable Plan - Discharge Summary Discharge Rx Participant: No New Discharge Prescriptions: Continue Multivit-Min/FA/Lycopen/Lutein [Centrum Silver Tablet] 1 tab PO HS Cholecalciferol [Vitamin D3 (25 Mcg = 1000 Iu)] 25 mcg PO DAILY Calcium Carbonate [Calcium] 600 mg PO DAILY Levothyroxine Sodium [Synthroid] 137 mcg PO DAILY Apixaban [Eliquis] 5 mg PO BID Omeprazole 20 mg PO AC-BRKFST Clopidogrel [Plavix] 75 mg PO DAILY #90 tablet Atorvastatin [Lipitor] 40 mg PO HS buPROPion HCL [buPROPion HCL SR] 150 mg PO DAILY Empagliflozin [Jardiance] 10 mg PO DAILY Ezetimibe [Zetia] 10 mg PO HS Sacubitril/Valsartan [Entresto 24 mg-26 mg Tablet] 1 tab PO BID Metoprolol Succinate (ER) [Toprol XL] 100 mg PO DAILY Nitroglycerin Sl Tabs [Nitrostat] 0.4 mg SL Q5M PRN PRN Reason: Chest Pain Spironolactone [Aldactone] 12.5 mg PO DAILY Discharge Medication List Apixaban [Eliquis] 5 mg PO BID 03/16/23 [History] Calcium Carbonate [Calcium] 600 mg PO DAILY 03/16/23 [History] Cholecalciferol [Vitamin D3 (25 Mcg = 1000 Iu)] 25 mcg PO DAILY 03/16/23 [History] Levothyroxine Sodium [Synthroid] 137 mcg PO DAILY 03/16/23 [History] Metoprolol Succinate (ER) [Toprol XL] 100 mg PO DAILY 03/16/23 [History] Multivit-Min/FA/Lycopen/Lutein [Centrum Silver Tablet] 1 tab PO HS 03/16/23 [History] Omeprazole 20 mg PO AC-BRKFST 05/18/23 [History] Nitroglycerin Sl Tabs [Nitrostat] 0.4 mg SL Q5M PRN 05/22/23 [History] Clopidogrel [Plavix] 75 mg PO DAILY #90 tablet 05/24/23 [Rx] Atorvastatin [Lipitor] 40 mg PO HS 03/20/24 [History] Empagliflozin [Jardiance] 10 mg PO DAILY 03/20/24 [History] Ezetimibe [Zetia] 10 mg PO HS 03/20/24 [History] Sacubitril/Valsartan [Entresto 24 mg-26 mg Tablet] 1 tab PO BID 03/20/24 [History] Spironolactone [Aldactone] 12.5 mg PO DAILY 03/20/24 [History] buPROPion HCL [buPROPion HCL SR] 150 mg PO DAILY 03/20/24 [History] Follow up Appointment(s)/Referral(s): Joyce Cerrato MD [Primary Care Provider] - 1-2 days
== END 2024-03-23 13:20 | disposition home or self-care (01) ==
LOC: EC 14:12 → 6NMEDSUR 17:54
PROVIDERS: ADMIT Internal Medicine; ATTEND Internal Medicine
DX: R11.2 Nausea with vomiting, unspecified (principal); U07.1 COVID-19; E86.1 Hypovolemia; E87.1 Hypo-osmolality and hyponatremia; J44.9 Chronic obstructive pulmonary disease, unspecified; E78.2 Mixed hyperlipidemia; E89.0 Postprocedural hypothyroidism; I11.9 Hypertensive heart disease without heart failure; I25.10 Atherosclerotic heart disease of native coronary artery without angina pectoris; I48.0 Paroxysmal atrial fibrillation; K21.9 Gastro-esophageal reflux disease without esophagitis; F41.9 Anxiety disorder, unspecified; J30.9 Allergic rhinitis, unspecified; M06.9 Rheumatoid arthritis, unspecified; E55.9 Vitamin D deficiency, unspecified; I25.5 Ischemic cardiomyopathy; Z86.711 Personal history of pulmonary embolism; Z95.0 Presence of cardiac pacemaker; Z95.2 Presence of prosthetic heart valve; Z79.01 Long term (current) use of anticoagulants; Z79.02 Long term (current) use of antithrombotics/antiplatelets; Z79.84 Long term (current) use of oral hypoglycemic drugs; Z79.890 Hormone replacement therapy; Z79.899 Other long term (current) drug therapy; Z88.1 Allergy status to other antibiotic agents; Z88.2 Allergy status to sulfonamides
CPT/HCPCS: 96374; 96375; 99285; 36415; 93005; 80053 ×3; 83605; 83735; 84484; 85025 ×2; 85027; 85610; 85730; 81001; 87636; 71046; G0378 ×4; S0106 ×3; J2405; J2470

== ENCOUNTER 2024-04-16 20:43 | Emergency (ER) | payer MEDICARE ==
[2024-04-16 21:03] VITALS: RESP 18
[2024-04-16] MEDS: ACETAMINOPHEN TAB 325 MG TAB PO STA (21:51)
--- NOTE | 2024-04-16 22:03 | XR ---
EXAMINATION TYPE: XR knee complete RT DATE OF EXAM: 04/16/2024 9:59 PM COMPARISON: None. CLINICAL INDICATION: Female, 78 years old with history of Knee pain and swelling, pain TECHNIQUE: 3 view(s) obtained. FINDINGS: Right knee prosthesis is present. Vascular calcification is present. No acute fracture or dislocation evident. No significant joint effusion evident. Follow up exams can be performed 7-10 days from acute trauma for continued pain IMPRESSION: 1. No acute osseous abnormality right knee [facility], Workstation: [facility], 04/16/2024 10:01 PM
--- NOTE | 2024-04-16 22:27 | US ---
EXAMINATION TYPE: US venous doppler duplex LE RT DATE OF EXAM: 04/16/2024 10:13 PM COMPARISON: XR 04/16/24 CLINICAL INDICATION: Female, 78 years old with history of Knee pain and swelling; Patient states knee pain and swelling. Hx knee replacement. Hx PE. No hx DVT. On thinners, Pain TECHNIQUE: The lower extremity deep venous system is examined utilizing real time linear array sonog quinten with graded compression, color doppler sonography, and spectral doppler. SIDE PERFORMED: Right FINDINGS: VESSELS IMAGED: Common Femoral Vein Deep Femoral Vein Greater Saphenous Vein * Femoral Vein Popliteal Vein Small Saphenous Vein * Proximal Calf Veins (* superficial vessels) Right Leg: Negative for DVT, Color Doppler imaging shows patency of the vessels. Spectral waveforms are within normal limits. IMPRESSION: 1. Right lower extremity ultrasound negative for deep venous thrombosis [facility], Workstation: [facility], 04/16/2024 10:24 PM
--- NOTE | 2024-04-16 22:41 | ED ---
Extremity Problem HPI - General Chief complaint: Extremity Problem,Nontraumatic Stated complaint: R Knee pain/Swelling Time Seen by Provider: 04/16/24 21:21 Source: patient Mode of arrival: wheelchair - History of Present Illness Initial comments: 78-year-old female presenting chief complaint of right knee pain. Pain started this afternoon while the patient was getting out of the car. She is having soreness to the knee and some swelling as well. She has a history of knee replacement years ago. Patient does have history of blood clots, she is on Eliquis and Plavix, she is concerned for DVT. She is having no chest pain or difficulty breathing. No pain in the calf or foot. Denies any injury or trauma. No numbness tingling or weakness. No discoloration. No fever or v omiting. - Related Data Home Medications Medication Instructions Recorded Confirmed Apixaban [Eliquis] 5 mg PO BID 03/16/23 03/20/24 Calcium Carbonate [Calcium] 600 mg PO DAILY 03/16/23 03/20/24 Cholecalciferol [Vitamin D3 (25 25 mcg PO DAILY 03/16/23 03/20/24 Mcg = 1000 Iu)] Levothyroxine Sodium [Synthroid] 137 mcg PO DAILY 03/16/23 03/20/24 Metoprolol Succinate (ER) [Toprol 100 mg PO DAILY 03/16/23 03/20/24 XL] Multivit-Min/FA/Lycopen/Lutein 1 tab PO HS 03/16/23 03/20/24 [Centrum Silver Tablet] Omeprazole 20 mg PO AC-BRKFST 05/18/23 03/20/24 Nitroglycerin Sl Tabs [Nitrostat] 0.4 mg SL Q5M PRN 05/22/23 03/20/24 Atorvastatin [Lipitor] 40 mg PO HS 03/20/24 03/20/24 Empagliflozin [Jardiance] 10 mg PO DAILY 03/20/24 03/20/24 Ezetimibe [Zetia] 10 mg PO HS 03/20/24 03/20/24 Sacubitril/Valsartan [Entresto 24 1 tab PO BID 03/20/24 03/20/24 mg-26 mg Tablet] Spironolactone [Aldactone] 12.5 mg PO DAILY 03/20/24 03/20/24 buPROPion HCL [buPROPion HCL SR] 150 mg PO DAILY 03/20/24 03/20/24 Previous Rx's Medication Instructions Recorded Clopidogrel [Plavix] 75 mg PO DAILY #90 tablet 05/24/23 Albuterol Inhaler [Ventolin Hfa 2 puff INHALATION RT-QID PRN #1 03/23/24 Inhaler] each Benzonatate [Tessalon Perles] 100 mg PO TID #21 cap 03/23/24 Melatonin 3 mg PO HS tab 03/23/24 Allergies Allergy/AdvReac Type Severity Reaction Status Date / Time cephalexin [From Keflex] Allergy Rash/Hives Verified 04/16/24 21:03 Sulfa (Sulfonamide Allergy Rash/Hives Verified 04/16/24 21:03 Antibiotics) Review of Systems ROS Statement: Those systems with pertinent positive or pertinent negative responses have been documented in the HPI. ROS Other: All systems not noted in ROS Statement are negative. Past Medical History Past Medical History: Heart Failure, COPD, Hyperlipidemia, Hypertension, Pulmonary Embolus (PE), Thyroid Disorder History of Any Multi-Drug Resistant Organisms: None Reported Past Surgical History: Cholecystectomy, Hysterectomy, Pacemaker Additional Past Surgical History / Comment(s): TAVR Heart valve replacement, thyroid surgery, wrist surgery, neck surgery, knee replacement x3. Past Anesthesia/Blood Transfusion Reactions: No Reported Reaction Type of Cardiac Device: Permanent Pacemaker Device Placement Date:: 08/18/20 Past Psychological History: No Psychological Hx Reported Smoking Status: Never smoker Past Alcohol Use History: Occasional Past Drug Use History: None Reported - Past Family History Father Family Medical History: COPD, Myocardial Infarction (SC) Mother Family Medical History: COPD General Exam Limitations: no limitations General appearance: alert, in no apparent distress Head exam: Present: atraumatic, normocephalic, normal inspection Eye exam: Present: normal appearance, EOMI Neck exam: Present: normal inspection. Absent: meningismus Respiratory exam: Absent: respiratory distress Cardiovascular Exam: Present: regular rate Right Knee exam: Present: full ROM, tenderness, swelling. Absent: deformity, erythema Neurovascular tendon exam: Present: no vascular compromise Neurological exam: Present: alert, oriented X3 Psychiatric exam: Present: normal affect, normal mood Skin exam: Present: warm, dry, normal color Course Vital Signs 04/16/24 20:56 Temperature 97.6 F Pulse Rate 69 Respiratory 18 Rate Blood Pressure 114/67 O2 Sat by Pulse 97 Oximetry Medical Decision Making - Medical Decision Making Was pt. sent in by a medical professional or institution (ANANYA Penny, NURSE ORTHOPAEDIC, urgent care, hospital, or [place] health care facility...) When possible be specific @ -No Did you speak to anyone other than the patient for history (EMS, parent, family, police, friend...)? What history was obtained from this source @ -No Did you review nursing and triage notes (agree or disagree)? Why? @ -I reviewed and agree with nursing and triage notes Were old charts reviewed (outside hosp., previous admission, EMS record, old EKG, old radiological studies, urgent care reports/EKG's, [place] health care facility records)? Report findings @ -No old charts were reviewed Differential Diagnosis (chest pain, altered mental status, abdominal pain women, abdominal pain men, vaginal bleeding, weakness, fever, dyspnea, syncope, headache, dizziness, GI bleed, back pain, seizure, CVA, palpatations, mental health, musculoskeletal)? @ -Differential Musculoskeletal Muscular strain, contusion, ligament sprain, fracture, arthritis, septic arthritis, bursitis, cellulitis, muscle spasm, nerve compression, DVT, arterial occlusion, herpes zoster, electrolyte abnormality, tumor.... This is not meant to be in all inclusive list EKG interpreted by me (3pts min.). @ -As above X-rays interpreted by me (1pt min.). @ -X-ray shows no acute osseous abnormality of the right knee CT interpreted by me (1pt min.). @ -None done U/S interpreted by me (1pt. min.). @ -Ultrasound is negative for DVT What testing was considered but not performed or refused? (CT, X-rays, U/S, labs)? Why? @ -None What meds were considered but not given or refused? Why? @ -None Did you discuss the management of the patient with other professionals (professionals i.e. ANANYA Penny, NURSE ORTHOPAEDIC, lab, RT, psych nurse, social worker masters, corrections sergeant, teacher, fare enforcement officer, disease case manager)? Give summary @ -No Was smoking cessation discussed for >3mins.? @ -No Was critical care preformed (if so, how long)? @ -No Were there social determinants of health that impacted care today? How? (Homelessness, low income, unemployed, alcoholism, drug addiction, transportation, low edu. Level, literacy, decrease access to med. care, detention, rehab)? @ -No Was there de-escalation of care discussed even if they declined (Discuss DNR or withdrawal of care, Hospice)? DNR status @ -No What co-morbidities impacted this encounter? (DM, HTN, Smoking, COPD, CAD, Cancer, CVA, ARF, Chemo, Hep., AIDS, mental health diagnosis, sleep apnea, morbid obesity)? @ -None Was patient admitted / discharged? Hospital course, mention meds given and route, prescriptions, significant lab abnormalities, going to OR and other pertinent info. @ -78-year-old female presenting with chief complaint of right knee soreness and some swelling after getting out of the car today. No numbness or tingling. She is concerned for DVT. Full sensation intact. Normal capillary refill. Ultrasound negative for DVT and x-ray shows no acute osseous abnormality. Patient was given Tylenol for pain control. She is educated on today's findings. She will follow-up with orthopedics. Follow-up with PCP. Report back to ER with any new or worsening symptoms. Discussed return parameters and answered all questions. Patient conveyed verbal understanding and agreed to the plan. My attending is Dr. Ang Undiagnosed new problem with uncertain prognosis? @ -No Drug Therapy requiring intensive monitoring for toxicity (Heparin, Nitro, Insulin, Cardizem)? @ -No Were any procedures done? @ -No Diagnosis/symptom? @ -Knee pain Acute, or Chronic, or Acute on Chronic? @ -Acute Uncomplicated (without systemic symptoms) or Complicated (systemic symptoms)? @ -Uncomplicated Side effects of treatment? @ -No Exacerbation, Progression, or Severe Exacerbation? @ -No Poses a threat to life or bodily function? How? (Chest pain, [place], SC, pneumonia, PE, COPD, DKA, ARF, appy, cholecystitis, CVA, Diverticulitis, Homicidal, Suicidal, threat to staff... and all critical care pts) @ -Low likelihood Disposition Clinical Impression: Knee pain Disposition: HOME SELF-CARE Condition: Good Instructions (If sedation given, give patient instructions): Knee Pain (ED) Additional Instructions: Follow-up with PCP and orthopedics. Report back to ER with any new or worsening symptoms. Take Tylenol as needed. Rest ice and elevate the knee. Weightbearing as tolerated, use your walker. Is patient prescribed a controlled substance at d/c from ED?: No Referrals: Joyce Cerrato MD [Primary Care Provider] - 1-2 days Saad Renee DO [Doctor of Osteopathic Medicine] - 1-2 days Time of Disposition: 22:41
[2024-04-16 23:14] VITALS: BP 129/78; PULSE 87; TEMP 97.8
== END 2024-04-16 23:13 | disposition home or self-care (01) ==
LOC: EC 20:43
DX: M25.561 Pain in right knee (principal); Z88.1 Allergy status to other antibiotic agents; Z88.2 Allergy status to sulfonamides
CPT/HCPCS: 99284